=== PATIENT | female | born 1940 | race Asian ===

== ENCOUNTER 2021-04-08 03:31 | Emergency (ER) | payer MEDICARE, MEDICAID, SELFPAY ==
--- NOTE | ~2021-04-08 | CT_ITS ---
EXAMINATION CT CHEST, ABDOMEN AND PELVIS WITH CONTRAST CLINICAL INFORMATION: Chest pain. Hypertension. COMPARISON: None. TECHNIQUE: Multidetector volumetric CT imaging of the chest, abdomen and pelvis was obtained after the administration of 100 mL of intravenous Omnipaque 300 without immediate adverse reactions. Coronal and sagittal reformats were reviewed. This CT examination was performed using dose optimization techniques as appropriate, variously including the following: *Automated exposure control *Adjustment of mA and/or kV according to patient size (this includes techniques or standardized protocols for targeted exams where dose is matched to indication/reason for exam; i.e. extremities or head) *Use of iterative reconstruction technique DLP: 615 mGy-cm. FINDINGS: CHEST LUNGS/PLEURA: No pneumonitis or parenchymal consolidation. There is a 6 mm nodule at the right lung apex. There is no pleural effusion. No pleural mass or thickening. MEDIASTINUM/STEFANIA: Cardiomegaly. No pericardial effusion. Great vessels normal caliber. No aortic dissection. No pulmonary aneurysm. Aberrant right subclavian artery. No mediastinal or hilar adenopathy. CHEST WALL/AXILLA: Unremarkable. ABDOMEN/PELVIS HEPATOBILIARY: Liver normal in size, contour and morphology. No suspicious lesions. No intra or extrahepatic biliary dilation. Gallbladder unremarkable. PANCREAS: Unremarkable. SPLEEN: Unremarkable. ADRENAL GLANDS: Unremarkable. KIDNEYS, URETERS AND BLADDER: Kidneys normal in size, axis and morphology demonstrating symmetric enhancement. There is a 1.2 cm simple cyst in the right kidney which requires no further follow-up. No hydronephrosis or urinary calculi. Ureters normal in course and caliber. Bladder grossly unremarkable.. GASTROINTESTINAL TRACT: No bowel related abnormalities. PELVIC VISCERA: Unremarkable. LYMPH NODES: No lymphadenopathy. PERITONEUM/BODY WALL: Unremarkable. VASCULAR STRUCTURES: Unremarkable for age. OSSEOUS STRUCTURES No acute or suspicious osseous abnormalities. CT/CT abdomen pelvis w con IMPRESSION: No etiology for the patient's chest and abdominal pain. Incidental 6 mm nodule, right lung apex. Recommend follow-up CT chest in 6 months.
[2021-04-08 03:40] VITALS: BP 190/100; BP 195/85; PULSE 61; PULSE 72; RESP 16; TEMP 37.1; O2SAT 96; O2SAT 97; BMI 24.3
--- NOTE | 2021-04-08 03:45 | ED_ITS ---
HPI - Arrhythmia/Palpitations General Chief Complaint: Arrhythmia/Palpitations Stated Complaint: palpataions Time Seen by Provider: 04/08/21 03:45 Source: patient and cheese pancake roller (Dutch) Mode of arrival: EMS History of Present Illness HPI narrative: 81-year-old female with history of Graves disease and hypertension presents via EMS for complaints of palpitations and 6 days of sharp, nonradiating abdominal pain. Patient states that she called EMS because she was having palpitations and was feeling considerably fatigued. Otherwise, she denies any fevers, chills, nausea, vomiting, it urinary symptoms. Related Data Allergies Allergy/AdvReac Type Severity Reaction Status Date / Time No Known Allergies Allergy Unverified 04/08/21 03:46 Review of Systems Review of Systems: Pertinent positives and negatives as stated in HPI 10 point review of systems is otherwise negative. [facility] Past Medical History Source: nursing notes reviewed Physical Exam Vital Signs: Vital Signs: Last Vital Signs Temp 98.8 F 04/08/21 03:40 Pulse 64 04/08/21 06:05 Resp 16 04/08/21 06:00 BP 167/72 H 04/08/21 06:05 Pulse Ox 94 04/08/21 06:00 Body Mass Index 24.3 VITAL SIGNS: Reviewed. GENERAL: Well developed, well nourished, in no acute distress. HEAD: Normocephalic/atraumatic EYES: PERRLA, EOMI EARS: Ext canals without abnormality OROPHARYNX: no oral lesions noted, posterior pharynx clear LUNGS: Normal breath sounds. No adventitious sounds or accessory muscle use. SpO2<97> CARDIOVASCULAR: Regular rate and rhythm without noted murmurs, no JVD or lower extremity edema. ABDOMEN: Soft, tenderness to palpation primarily right-sided without rebound, non-distended with bowel sounds. MUSCULOSKELETAL: No tenderness, deformities, or effusions noted on gross inspection. EXTREMITIES: No cyanosis, clubbing or edema. SKIN: Inspection of the skin reveals no rashes, ulcerations, jaundice, pallor, or petechiae. NEUROLOGIC: Alert and oriented x 4. Strength and sensation to light touch were grossly intact x 4. Course Course Course Narrative: This is a 81-year-old female who has history and clinical presentation made more challenging by the absence of family members and the difficulty in obtaining [place] cheese pancake roller. Limited documentation for review indicates a history of Graves/hyperthyroidism, however on evaluation of initial vital signs patient is noted to be hypertensive, but EKG was without significant abnormalities (please review details in that section). There is no appreciation of a pulsatile mass within the abdomen. Review of all investigations without acute findings to better explain patient's presenting symptoms. Review of troponin and EKG without evidence of cardiac acute the etiology, no infectious or evidence of anemia. MDM - Arrhythmia/Palpitations Lab Data Result diagrams: 04/08/21 04:04 04/08/21 04:04 Labs: Lab Results 04/08/21 04/08/21 04/08/21 Range/Units 04:04 04:04 04:04 WBC 5.5 (4.8-10.8) X10*3/uL RBC 4.04 L (4.20-5.50) X10*6/uL Hgb 12.0 (12.0-16.0) g/dl Hct 36.9 L (37-47) % MCV 91.3 (80-98) fL MCH 29.7 (27.0-33.0) pg MCHC 32.5 (31.0-35.0) g/dl RDW 12.4 (11.0-16.0) % Plt Count 127 L (160-400) X10*3/uL MPV 13.0 H (9.4-12.3) fL Immature Gran % (Auto) 0.2 (0.0-0.4) % Neut % (Auto) 50.2 (45-73) % Lymph % (Auto) 39.7 (20-40) % [place] % (Auto) 8.3 (2-11) % Eos % (Auto) 1.1 (0-4) % Baso % (Auto) 0.5 (0-2) % Lymph # (Auto) 2.2 (1.2-4.9) X10*3/uL [place] # (Auto) 0.5 (0.1-1.2) X10*3/uL Eos # (Auto) 0.1 (0.0-0.4) X10*3/uL Baso # (Auto) 0.0 (0.0-0.2) X10*3/uL Abs Immat Gran (auto) 0.01 (0.00-0.03) X10*3/uL Absolute Neuts (auto) 2.8 (2.0-8.3) X10*3/uL Absolute Nucleated RBC 0.000 (0.0-0.012) X10*3/uL Nucleated RBC % (auto) 0.0 (0.0-0.2) /100WBC PT 11.8 (9.9-13.0) SEC INR 1.0 (0.9-1.1) Sodium 144 (135-145) mmol/L Potassium 3.4 (3.3-5.1) mmol/L Chloride 106 (96-108) mmol/L Carbon Dioxide 28 (22-29) mmol/L Anion Gap 13 (12-20) BUN 8 L (9-16) mg/dL Creatinine 0.78 (0.5-1.4) mg/dL Estim Creat Clear Calc 46.1 Estimated GFR > 60 Random Glucose 92 (60-115) mg/dL Calcium 9.4 (8.4-10.2) mg/dL Total Bilirubin 0.4 (0.0-1.0) mg/dL AST 16 (5-31) U/L ALT 7 (0-31) U/L Alkaline Phosphatase 60 (39-117) U/L Troponin I High Sens (<3.5-17.0) ng/L Total Protein 7.5 (6.5-8.0) g/dL Albumin 4.3 (3.5-5.0) g/dL Urine Color Urine Appearance Urine pH (5.0-8.0) Ur Specific [place] (1.005-1.025) Urine Protein (NEG-TRACE) MG/DL Urine Glucose (UA) (NEG) MG/DL Urine Ketones (NEG) MG/DL Urine Blood (NEG) Urine Nitrite (NEG) Ur Leukocyte Esterase (NEG) Urine RBC (0) /HPF Urine WBC (0-4) /HPF Ur Squamous Epith Cells /LPF Urine Bacteria /LPF 04/08/21 04/08/21 Range/Units 04:22 05:02 WBC (4.8-10.8) X10*3/uL RBC (4.20-5.50) X10*6/uL Hgb (12.0-16.0) g/dl Hct (37-47) % MCV (80-98) fL MCH (27.0-33.0) pg MCHC (31.0-35.0) g/dl RDW (11.0-16.0) % Plt Count (160-400) X10*3/uL MPV (9.4-12.3) fL Immature Gran % (Auto) (0.0-0.4) % Neut % (Auto) (45-73) % Lymph % (Auto) (20-40) % [place] % (Auto) (2-11) % Eos % (Auto) (0-4) % Baso % (Auto) (0-2) % Lymph # (Auto) (1.2-4.9) X10*3/uL [place] # (Auto) (0.1-1.2) X10*3/uL Eos # (Auto) (0.0-0.4) X10*3/uL Baso # (Auto) (0.0-0.2) X10*3/uL Abs Immat Gran (auto) (0.00-0.03) X10*3/uL Absolute Neuts (auto) (2.0-8.3) X10*3/uL Absolute Nucleated RBC (0.0-0.012) X10*3/uL Nucleated RBC % (auto) (0.0-0.2) /100WBC PT (9.9-13.0) SEC INR (0.9-1.1) Sodium (135-145) mmol/L Potassium (3.3-5.1) mmol/L Chloride (96-108) mmol/L Carbon Dioxide (22-29) mmol/L Anion Gap (12-20) BUN (9-16) mg/dL Creatinine (0.5-1.4) mg/dL Estim Creat Clear Calc Estimated GFR Random Glucose (60-115) mg/dL Calcium (8.4-10.2) mg/dL Total Bilirubin (0.0-1.0) mg/dL AST (5-31) U/L ALT (0-31) U/L Alkaline Phosphatase (39-117) U/L Troponin I High Sens < 3.5 (<3.5-17.0) ng/L Total Protein (6.5-8.0) g/dL Albumin (3.5-5.0) g/dL Urine Color YELLOW Urine Appearance CLEAR Urine pH 7.5 (5.0-8.0) Ur Specific [place] 1.015 (1.005-1.025) Urine Protein NEG (NEG-TRACE) MG/DL Urine Glucose (UA) NEG (NEG) MG/DL Urine Ketones NEG (NEG) MG/DL Urine Blood TRACE (NEG) Urine Nitrite NEG (NEG) Ur Leukocyte Esterase NEG (NEG) Urine RBC 1-4 (0) /HPF Urine WBC 1-4 (0-4) /HPF Ur Squamous Epith Cells 1+ /LPF Urine Bacteria 1+ /LPF ECG Data Attestation: I personally reviewed and interpreted this ECG as follows: Prior ECG tracings: not available for review Interpretation: Normal sinus rhythm, HR-61, no STEMI, PA/QRS/QTC are within normal limits. Discharge Plan Discharge Clinical Impression: Palpitations, Abdominal discomfort, Hypertension Patient Disposition: Home, Self-Care Instructions: Heart Palpitations (ED), Abdominal Pain (ED) Additional Instructions: 1. Resume all home medications as prescribed. 2. Follow-up with your primary care provider in the next 2-3 days for re- evaluation. Return to the ER for acute worsening of symptoms.
[2021-04-08 04:05] VITALS: BP 185/82; PULSE 65; RESP 13; O2SAT 96
[2021-04-08 04:13] LABS: MANUAL DIFF FLAG NO
[2021-04-08 04:28] LABS: Basophils Percent Auto 0.5 % (0-2); Eosinophils Absolute Auto 0.1 X10*3/uL (0.0-0.4); Eosinophils Percent Auto 1.1 % (0-4); Hematocrit 36.9 % (37-47); Imm Gran Abs Auto 0.01 X10*3/uL (0.00-0.03); Imm Gran Pct Auto 0.2 % (0.0-0.4); Lymphocytes Absolute Auto 2.2 X10*3/uL (1.2-4.9); Lymphocytes Percent Auto 39.7 % (20-40); Mean Corpuscular HGB Conc 32.5 g/dl (31.0-35.0); Mean Corpuscular Hemoglobin 29.7 pg (27.0-33.0); Mean Corpuscular Volume 91.3 fL (80-98); Monocytes Absolute Auto 0.5 X10*3/uL (0.1-1.2); Monocytes Percent Auto 8.3 % (2-11); Neutrophils Absolute Auto 2.8 X10*3/uL (2.0-8.3); Neutrophils Percent Auto 50.2 % (45-73); Platelet Count 127 X10*3/uL (160-400); Red Blood Count 4.04 X10*6/uL (4.20-5.50); Red Cell Distribution Width 12.4 % (11.0-16.0); White Blood Count 5.5 X10*3/uL (4.8-10.8)
[2021-04-08 04:31] LABS: Prothrombin Time 11.8 SEC (9.9-13.0)
[2021-04-08 04:38] LABS: Alanine Aminotransferase 7 U/L (0-31); Albumin Level 4.3 g/dL (3.5-5.0); Alkaline Phosphatase 60 U/L (39-117); Anion Gap 13 (12-20); Aspartate Amino Transferase 16 U/L (5-31); Bilirubin Total 0.4 mg/dL (0.0-1.0); Blood Urea Nitrogen 8 mg/dL (9-16); Calcium 9.4 mg/dL (8.4-10.2); Carbon Dioxide 28 mmol/L (22-29); Chloride 106 mmol/L (96-108); Creatinine Clr Calc Pharmacy 46.1; Estimated Glomerular Filt Rate > 60; Glucose Random 92 mg/dL (60-115); Potassium 3.4 mmol/L (3.3-5.1); Sodium 144 mmol/L (135-145); Total Protein 7.5 g/dL (6.5-8.0)
[2021-04-08 04:50] LABS: Troponin-I High Sensitivity < 3.5 ng/L (<3.5-17.0)
[2021-04-08 05:03] VITALS: BP 186/84; PULSE 63
[2021-04-08] MEDS: Labetalol HCL 100 MG/20 ML VIAL IVPUSH (05:03)
--- NOTE | 2021-04-08 05:06 | PC.NURSE ---
this RN attempted PIV access x 2, Dr Rodriguez attempted PIV with US guidance x 3. Ky RN able to obtain PIV with 22g in L hand. Pt being medicated at this time with 2.5mg lopressor as ordered in NOV for pt's HTN.
--- NOTE | 2021-04-08 05:07 | PC.NURSE ---
This RN attempted video/audio life science teacher with Bolivian, was informed no Bolivian interpreters available at this time. Ky RN called family from number in chart but was unable to communicate d/t no Afghan. This RN using phone to call interpreting services at this time, awaiting answer. Pt appears to grimace with palpation of abd, states hurt and points to chest and abd.
[2021-04-08 05:09] LABS: Appearance Urine CLEAR; Color Urine YELLOW; Glucose Urine UA NEG (NEG); Leukocyte Esterase Urine NEG (NEG); Nitrite Urine NEG (NEG); PH 7.5 (5.0-8.0); Specific Gravity - Urine 1.015 (1.005-1.025); UACC Culture Trigger NO; Urine Blood TRACE (NEG); Urine Ketones NEG (NEG); Urine Protein NEG (NEG-TRACE)
[2021-04-08 05:19] LABS: Bacteria Urine 1+ /LPF; Squamous Epithelial Cell Urine 1+ /LPF
[2021-04-08 05:30] VITALS: BP 181/82; PULSE 61; RESP 15; O2SAT 97
[2021-04-08] MEDS: iohexoL 350 MG/ML 100 ML INFUS..BTL 85 ML IV (05:54)
[2021-04-08 06:00] VITALS: BP 167/72; PULSE 64; RESP 16; O2SAT 94
[2021-04-08 06:05] VITALS: BP 167/72; PULSE 64
--- NOTE | 2021-04-08 06:05 | PC.NURSE ---
Dr Rodriguez made aware of BP 167/72; this RN to hold labetalol given decrease in BP
--- NOTE | 2021-04-08 07:34 | PC.NURSE ---
report taken from sean collier pt here for chest pain, work up negative and pt cleared for dc. pt eritrean speaking only, no contacts with serviceable phones in pt chart, pt does not know any phone numbers of family who can assist in getting home. this rn communicating using language application on phone. only able to translate bhutanese to eritrean. pt denies pain or distress at this time.
--- NOTE | 2021-04-08 07:40 | ECG_ITS ---
Test Reason : PALPITATIONS Blood Pressure : / mmHG Vent. Rate : 061 BPM Atrial Rate : 061 BPM P-R Int : 172 ms QRS Dur : 082 ms QT Int : 422 ms P-R-T Axes : 022 041 078 degrees QTc Int : 424 ms Normal sinus rhythm Nonspecific ST and T wave abnormality Borderline ECG No previous ECGs available Referred By: Nayely Rodriguez Electronically Signed By:AGNIESZKA STEVENSON
[2021-04-08] MEDS: Acetaminophen 325 MG TABLET 650 MG PO (11:40)
== END 2021-04-08 11:44 | disposition home or self-care (01) ==
PROVIDERS: Emergency Provider Student in an Organized Health Care Education/Training Program
DX: R00.2 Palpitations (principal); E05.00 Thyrotoxicosis with diffuse goiter without thyrotoxic crisis or storm; R10.9 Unspecified abdominal pain; I10 Essential (primary) hypertension; Z79.899 Other long term (current) drug therapy
CPT/HCPCS: 36415; 71260; 74177; 80053; 81001; 84484; 85025; 85610; 93005; 96374; 96375; 99284; Q9967

== ENCOUNTER 2021-10-05 13:36 | Emergency (ER) | payer MEDICARE, MEDICAID, SELFPAY ==
--- NOTE | ~2021-10-05 | XR_ITS ---
EXAMINATION: XR CHEST CLINICAL INFORMATION: Cough, Covid like symptoms. COMPARISON: CT chest 04/08/2021. TECHNIQUE: Frontal view of the chest was obtained. FINDINGS: The lungs are well-expanded and clear of acute process. There is some ill-defined patchy opacity left lung base retrocardiac area and right lung base likely developing infiltrates. Heart size is enlarged. Perivascular is normal. No gross bony abnormality seen. XR/XR chest 1V IMPRESSION: Likely developing infiltrates in both lower lobes.
[2021-10-05 13:47] VITALS: BP 143/61; BP 161/85; PULSE 60; PULSE 64; RESP 16; TEMP 37.1; O2SAT 97; BMI 25.3
--- NOTE | 2021-10-05 14:08 | ECG_ITS ---
Test Reason : chest pain Blood Pressure : / mmHG Vent. Rate : 058 BPM Atrial Rate : 058 BPM P-R Int : 174 ms QRS Dur : 084 ms QT Int : 400 ms P-R-T Axes : 028 020 068 degrees QTc Int : 392 ms Sinus bradycardia Otherwise normal ECG When compared with ECG of 08-APR-2021 03:42, No significant change was found Referred By: Lilia Tamayo Electronically Signed By:KODAK TIAN MD
--- NOTE | 2021-10-05 14:28 | ED.GENADULT ---
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 Patient states she has had flu-like symptoms for about a week, coughing, body aches, overall not feeling well. Patient states she is immunized for COVID. Patient complaining of occasional palpitations along with chest pain. Patient states that at this time she has no palpitations or chest pain but overall feeling weak and nauseous. Patient denies abdominal pain, no vomiting or diarrhea. Patient also reports that she has been urinating more than usual, no dysuria, no flank pain, no fever chills Related Data Previous Rx's Medication Instructions Recorded levofloxacin 500 mg tablet 500 mg PO DAILY #6 tab 10/05/21 Allergies Allergy/AdvReac Type Severity Reaction Status Date / Time No Known Allergies Allergy Unverified 04/08/21 03:46 Review of Systems Review of Systems: Constitutional : No Weight loss, No Fever, No Chills, No Night Sweats, complaining of fatigue and generalized malaise ENT/Mouth : No Hearing loss, No Ear Pain, No Nasal Congestion, No Sinus Pain, No Hoarseness, No sore throat, No Rhinorrhea, No Swallowing Difficulty Eyes: No Eye Pain, No Swelling, No Redness, No Foreign Body, No Discharge, No Vision Changes Cardiovascular : Complaining of palpitations along with Chest Pain intermittently, complaining of intermittent shortness of breath Respiratory : Complaining of dry cough, shortness of breath, no wheezing Gastrointestinal : Complaining of Nausea, No Vomiting, No Diarrhea, No Constipation, No abdominal Pain, No Hematochezia, No Melena Genitourinary : no irregular bleeding, No Dysuria, complaining of Urinary Frequency, No Hematuria, No Urinary Incontinence, No Urgency, No Flank Pain, No Urinary Flow Changes, No Hesitancy Musculoskeletal : No joint pain, complaining of generalized Myalgias, No Joint Swelling Skin : No Skin Lesions, No rash Neuro : No Weakness, No Numbness, No Paresthesias, No Loss of Consciousness, No Dizziness, No Headache Psych : No Anxiety/Panic, No Depression, No SI/HI/AH/VH, No Social Issues, Heme/Lymph: No Bruising, No Bleeding,No Lymphadenopathy Endocrine : No Polyuria, No Polydipsia, No Temperature Intolerance [facility] Past Medical History Medical History (Updated 10/05/21 @ 16:29 by Lilia Tamayo MD) Graves disease Social History Social History Advance Directives: No Advance Directives Information Provided: No Physical Exam Vital Signs: Vital Signs: Last Vital Signs Temp 98.5 F 10/05/21 15:20 Pulse 61 10/05/21 15:20 Resp 15 10/05/21 15:20 BP 140/53 H 10/05/21 15:20 Pulse Ox 98 10/05/21 15:20 BMI result Body Mass Index 25.3 Const: Other: Appearance: Alert. Oriented X3. No acute distress. Eyes: Pupils equal, round and reactive to light. ENT: Pharynx normal. Neck: Normal inspection. Neck supple. No lymph nodes noted. No crepitus CVS: Normal heart rate and rhythm. Pulses normal. Normal S1 and S2 Respiratory: No respiratory distress. Breath sounds normal. No Wheezing. No rales Abdomen: Soft, nontender Skin: Skin warm and dry. Seems a bit pale. Normal skin turgor. Extremities: No lower extremity edema. No Lacerations. No Rash Neuro: Oriented X 3. No motor deficit. No sensory deficit. Moving all extermities. No slurred speech. Course Course Course Narrative: I discussed the labs with the patient's daughter with the patient's permission. Patient tested positive for COVID-19. Patient may have a slight UTI. Patient will be sent home with antibiotics cover both possible developing infiltrates in both lower lobes and for UTI. Patient has an appointment pending with her primary care physician in [place] Patient's oxygen saturation remains above 98% on room air Patient's information was forwarded to the [facility] [place]. Discussed with patient's daughter Alonzo Penny. Medical Decision Making Lab Data Result diagrams: 10/05/21 14:48 10/05/21 14:48 Labs: Lab Results 10/05/21 10/05/21 10/05/21 Range/Units 14:37 14:39 14:48 WBC 5.3 (4.8-10.8) X10*3/uL RBC 4.46 (4.20-5.50) X10*6/uL Hgb 13.1 (12.0-16.0) g/dl Hct 41.2 (37.0-47.0) % MCV 92.4 (80.0-98.0) fL MCH 29.4 (27.0-33.0) pg MCHC 31.8 (31.0-35.0) g/dl RDW 12.4 (11.0-16.0) % Plt Count 190 (160-400) X10*3/uL MPV 11.2 (9.4-12.3) fL Immature Gran % (Auto) 0.2 (0.0-0.4) % Neut % (Auto) 61.5 (45-73) % Lymph % (Auto) 31.6 (20-40) % [place] % (Auto) 5.7 (2-11) % Eos % (Auto) 0.6 (0-4) % Baso % (Auto) 0.4 (0-2) % Lymph # (Auto) 1.7 (1.2-4.9) X10*3/uL [place] # (Auto) 0.3 (0.1-1.2) X10*3/uL Eos # (Auto) 0.0 (0.0-0.4) X10*3/uL Baso # (Auto) 0.0 (0.0-0.2) X10*3/uL Abs Immat Gran (auto) 0.01 (0.00-0.03) X10*3/uL Absolute Neuts (auto) 3.2 (2.0-8.3) x10*3/uL Absolute Nucleated RBC 0.000 (0.0-0.012) X10*3/uL Nucleated RBC % (auto) 0.0 (0.0-0.2) /100WBC PT (9.9-13.0) SEC INR (0.9-1.1) Sodium (135-145) mmol/L Potassium (3.3-5.1) mmol/L Chloride (96-108) mmol/L Carbon Dioxide (22-29) mmol/L Anion Gap (12-20) BUN (9-16) mg/dL Creatinine (0.5-1.4) mg/dL Estim Creat Clear Calc Estimated GFR Random Glucose (60-115) mg/dL Lactic Acid (0.5-2.0) mmol/L Calcium (8.4-10.2) mg/dL Total Bilirubin (0.0-1.0) mg/dL Direct Bilirubin (0.0-0.5) mg/dL AST (5-31) U/L ALT (0-31) U/L Alkaline Phosphatase (39-117) U/L Troponin I High Sens (<3.5-17.0) ng/L B-Natriuretic Peptide (<100) pg/mL Total Protein (6.5-8.0) g/dL Albumin (3.5-5.0) g/dL Lipase (8-78) U/L TSH (0.32-4.0) uIU/mL Urine Color YELLOW Urine Appearance CLEAR Urine pH 8.0 (5.0-8.0) Ur Specific [place] 1.010 (1.005-1.025) Urine Protein NEG (NEG-TRACE) MG/DL Urine Glucose (UA) NEG (NEG) MG/DL Urine Ketones NEG (NEG) MG/DL Urine Blood TRACE (NEG) Urine Nitrite NEG (NEG) Ur Leukocyte Esterase TRACE H (NEG) Urine RBC 0-2 (0) /HPF Urine WBC 1-4 (0-4) /HPF Ur Squamous Epith Cells TRACE /LPF Urine Bacteria 3+ /LPF COVID-19 ([facility]) Positive A (Negative) COVID-19 Clin Com See Note 10/05/21 10/05/21 10/05/21 Range/Units 14:48 14:48 14:48 WBC (4.8-10.8) X10*3/uL RBC (4.20-5.50) X10*6/uL Hgb (12.0-16.0) g/dl Hct (37.0-47.0) % MCV (80.0-98.0) fL MCH (27.0-33.0) pg MCHC (31.0-35.0) g/dl RDW (11.0-16.0) % Plt Count (160-400) X10*3/uL MPV (9.4-12.3) fL Immature Gran % (Auto) (0.0-0.4) % Neut % (Auto) (45-73) % Lymph % (Auto) (20-40) % [place] % (Auto) (2-11) % Eos % (Auto) (0-4) % Baso % (Auto) (0-2) % Lymph # (Auto) (1.2-4.9) X10*3/uL [place] # (Auto) (0.1-1.2) X10*3/uL Eos # (Auto) (0.0-0.4) X10*3/uL Baso # (Auto) (0.0-0.2) X10*3/uL Abs Immat Gran (auto) (0.00-0.03) X10*3/uL Absolute Neuts (auto) (2.0-8.3) x10*3/uL Absolute Nucleated RBC (0.0-0.012) X10*3/uL Nucleated RBC % (auto) (0.0-0.2) /100WBC PT 11.2 (9.9-13.0) SEC INR 1.0 (0.9-1.1) Sodium 143 (135-145) mmol/L Potassium 4.4 D (3.3-5.1) mmol/L Chloride 104 (96-108) mmol/L Carbon Dioxide 32 H (22-29) mmol/L Anion Gap 11 L (12-20) BUN 14 (9-16) mg/dL Creatinine 0.82 (0.5-1.4) mg/dL Estim Creat Clear Calc 44.6 Estimated GFR > 60 Random Glucose 91 (60-115) mg/dL Lactic Acid 1.1 (0.5-2.0) mmol/L Calcium 10.1 D (8.4-10.2) mg/dL Total Bilirubin 0.5 (0.0-1.0) mg/dL Direct Bilirubin 0.2 (0.0-0.5) mg/dL AST 28 D (5-31) U/L ALT 29 (0-31) U/L Alkaline Phosphatase 68 (39-117) U/L Troponin I High Sens (<3.5-17.0) ng/L B-Natriuretic Peptide (<100) pg/mL Total Protein 8.8 H (6.5-8.0) g/dL Albumin 4.7 (3.5-5.0) g/dL Lipase 40 (8-78) U/L TSH (0.32-4.0) uIU/mL Urine Color Urine Appearance Urine pH (5.0-8.0) Ur Specific [place] (1.005-1.025) Urine Protein (NEG-TRACE) MG/DL Urine Glucose (UA) (NEG) MG/DL Urine Ketones (NEG) MG/DL Urine Blood (NEG) Urine Nitrite (NEG) Ur Leukocyte Esterase (NEG) Urine RBC (0) /HPF Urine WBC (0-4) /HPF Ur Squamous Epith Cells /LPF Urine Bacteria /LPF COVID-19 ([facility]) (Negative) COVID-19 Clin Com 10/05/21 10/05/21 Range/Units 14:49 15:31 WBC (4.8-10.8) X10*3/uL RBC (4.20-5.50) X10*6/uL Hgb (12.0-16.0) g/dl Hct (37.0-47.0) % MCV (80.0-98.0) fL MCH (27.0-33.0) pg MCHC (31.0-35.0) g/dl RDW (11.0-16.0) % Plt Count (160-400) X10*3/uL MPV (9.4-12.3) fL Immature Gran % (Auto) (0.0-0.4) % Neut % (Auto) (45-73) % Lymph % (Auto) (20-40) % [place] % (Auto) (2-11) % Eos % (Auto) (0-4) % Baso % (Auto) (0-2) % Lymph # (Auto) (1.2-4.9) X10*3/uL [place] # (Auto) (0.1-1.2) X10*3/uL Eos # (Auto) (0.0-0.4) X10*3/uL Baso # (Auto) (0.0-0.2) X10*3/uL Abs Immat Gran (auto) (0.00-0.03) X10*3/uL Absolute Neuts (auto) (2.0-8.3) x10*3/uL Absolute Nucleated RBC (0.0-0.012) X10*3/uL Nucleated RBC % (auto) (0.0-0.2) /100WBC PT (9.9-13.0) SEC INR (0.9-1.1) Sodium (135-145) mmol/L Potassium (3.3-5.1) mmol/L Chloride (96-108) mmol/L Carbon Dioxide (22-29) mmol/L Anion Gap (12-20) BUN (9-16) mg/dL Creatinine (0.5-1.4) mg/dL Estim Creat Clear Calc Estimated GFR Random Glucose (60-115) mg/dL Lactic Acid (0.5-2.0) mmol/L Calcium (8.4-10.2) mg/dL Total Bilirubin (0.0-1.0) mg/dL Direct Bilirubin (0.0-0.5) mg/dL AST (5-31) U/L ALT (0-31) U/L Alkaline Phosphatase (39-117) U/L Troponin I High Sens < 3.5 (<3.5-17.0) ng/L B-Natriuretic Peptide 11 (<100) pg/mL Total Protein (6.5-8.0) g/dL Albumin (3.5-5.0) g/dL Lipase (8-78) U/L TSH 2.19 (0.32-4.0) uIU/mL Urine Color Urine Appearance Urine pH (5.0-8.0) Ur Specific [place] (1.005-1.025) Urine Protein (NEG-TRACE) MG/DL Urine Glucose (UA) (NEG) MG/DL Urine Ketones (NEG) MG/DL Urine Blood (NEG) Urine Nitrite (NEG) Ur Leukocyte Esterase (NEG) Urine RBC (0) /HPF Urine WBC (0-4) /HPF Ur Squamous Epith Cells /LPF Urine Bacteria /LPF COVID-19 ([facility]) (Negative) COVID-19 Clin Com Imaging Data Chest x-ray: Radiologist's impression: The lungs are well-expanded and clear of acute process. There is some ill-defined patchy opacity left lung base retrocardiac area and right lung base likely developing infiltrates. Heart size is enlarged. Perivascular is normal. No gross bony abnormality seen. XR/XR chest 1V IMPRESSION: Likely developing infiltrates in both lower lobes. Discharge Plan Discharge Clinical Impression: COVID-19, Acute UTI, Palpitations Patient Disposition: Home, Self-Care Instructions: COVID-19 (Coronavirus Disease 2019) (ED) Additional Instructions: Please follow-up with your primary care physician tomorrow. If you have any worsening or new symptoms, please return to the emergency room or call 911 Prescriptions: New levofloxacin 500 mg tablet 500 mg PO DAILY Qty: 6 RF: 0
[2021-10-05] MEDS: 0.9 % Sodium Chloride 1,000 ML 999 ML IVCONT (14:50)
[2021-10-05 14:56] LABS: MANUAL DIFF FLAG NO
[2021-10-05 14:59] LABS: Basophils Percent Auto 0.4 % (0-2); Eosinophils Percent Auto 0.6 % (0-4); Hematocrit 41.2 % (37.0-47.0); Hemoglobin 13.1 g/dl (12.0-16.0); Imm Gran Abs Auto 0.01 X10*3/uL (0.00-0.03); Imm Gran Pct Auto 0.2 % (0.0-0.4); Lymphocytes Absolute Auto 1.7 X10*3/uL (1.2-4.9); Lymphocytes Percent Auto 31.6 % (20-40); Mean Corpuscular HGB Conc 31.8 g/dl (31.0-35.0); Mean Corpuscular Hemoglobin 29.4 pg (27.0-33.0); Mean Corpuscular Volume 92.4 fL (80.0-98.0); Mean Platelet Volume 11.2 fL (9.4-12.3); Monocytes Absolute Auto 0.3 X10*3/uL (0.1-1.2); Monocytes Percent Auto 5.7 % (2-11); Neutrophils Absolute Auto 3.2 x10*3/uL (2.0-8.3); Neutrophils Percent Auto 61.5 % (45-73); Platelet Count 190 X10*3/uL (160-400); Red Blood Count 4.46 X10*6/uL (4.20-5.50); Red Cell Distribution Width 12.4 % (11.0-16.0); White Blood Count 5.3 X10*3/uL (4.8-10.8)
[2021-10-05 15:05] LABS: Prothrombin Time 11.2 SEC (9.9-13.0)
[2021-10-05 15:11] LABS: Lactic Acid 1.1 mmol/L (0.5-2.0)
[2021-10-05 15:11] LABS: Appearance Urine CLEAR; Color Urine YELLOW; Glucose Urine UA NEG (NEG); Leukocyte Esterase Urine TRACE (NEG); Nitrite Urine NEG (NEG); UACC Culture Trigger YES; Urine Blood TRACE (NEG); Urine Ketones NEG (NEG); Urine Protein NEG (NEG-TRACE)
[2021-10-05 15:17] LABS: Alanine Aminotransferase 29 U/L (0-31); Albumin Level 4.7 g/dL (3.5-5.0); Alkaline Phosphatase 68 U/L (39-117); Anion Gap 11 (12-20); Aspartate Amino Transferase 28 U/L (5-31); Bilirubin Direct 0.2 mg/dL (0.0-0.5); Bilirubin Total 0.5 mg/dL (0.0-1.0); Blood Urea Nitrogen 14 mg/dL (9-16); Calcium 10.1 mg/dL (8.4-10.2); Carbon Dioxide 32 mmol/L (22-29); Chloride 104 mmol/L (96-108); Creatinine Clr Calc Pharmacy 44.6; Estimated Glomerular Filt Rate > 60; Glucose Random 91 mg/dL (60-115); Lipase 40 U/L (8-78); Potassium 4.4 mmol/L (3.3-5.1); Sodium 143 mmol/L (135-145); Total Protein 8.8 g/dL (6.5-8.0)
[2021-10-05 15:20] VITALS: BP 140/53; PULSE 61; RESP 15; TEMP 36.9; O2SAT 98
[2021-10-05 15:21] LABS: B Type Natriuretic Peptide 11 pg/mL (<100); Troponin-I High Sensitivity < 3.5 ng/L (<3.5-17.0)
[2021-10-05 15:22] LABS: COVID-19 Test Positive (Negative); IDNOW Serial# 9DD0AD1C
[2021-10-05 15:34] LABS: Bacteria Urine 3+ /LPF; RBC Urine 0-2 /HPF (0); Squamous Epithelial Cell Urine TRACE /LPF
[2021-10-05 16:17] LABS: TSH reflex Free T4 2.19 uIU/mL (0.32-4.0)
[2021-10-05] MEDS: levoFLOXacin 500 MG TABLET PO (16:36)
[2021-10-05 16:41] VITALS: BP 186/80; PULSE 64; RESP 17; TEMP 36.8; O2SAT 97
== END 2021-10-05 17:25 | disposition home or self-care (01) ==
PROVIDERS: Emergency Provider Emergency Medicine
DX: U07.1 COVID-19 (principal); N39.0 Urinary tract infection, site not specified; R06.02 Shortness of breath; I49.9 Cardiac arrhythmia, unspecified; R00.2 Palpitations; Z79.899 Other long term (current) drug therapy
CPT/HCPCS: 36415; 71045; 80048; 80076; 81001; 81003; 83605; 83690; 83880; 84443; 84484; 85025; 85610; 87040; 87086; 87088; 87186; 87635; 93005; 96360; 99284

== ENCOUNTER 2022-01-19 12:16 | Emergency (ER) | payer MEDICARE, MEDICAID, SELFPAY ==
--- NOTE | 2022-01-19 | ECG_ITS ---
Test Reason : DIZINESS Blood Pressure : / mmHG Vent. Rate : 052 BPM Atrial Rate : 052 BPM P-R Int : 210 ms QRS Dur : 086 ms QT Int : 444 ms P-R-T Axes : 034 010 053 degrees QTc Int : 412 ms Sinus bradycardia with 1st degree A-V block Otherwise normal ECG When compared with ECG of 05-OCT-2021 14:08, MT interval has increased Referred By: Generic ED Physician Electronically Signed By:KODAK TIAN MD
--- NOTE | ~2022-01-19 | CT_ITS ---
EXAMINATION: CT HEAD WITHOUT CONTRAST CLINICAL INFORMATION: Dizziness, near syncope. COMPARISON: None TECHNIQUE: Contiguous axial imaging was performed from the skull base to vertex without intravenous administration of contrast. Coronal and sagittal reformatted images were obtained. This CT examination was performed using dose optimization techniques as appropriate, variously including the following: *Automated exposure control *Adjustment of mA and/or kV according to patient size (this includes techniques or standardized protocols for targeted exams where dose is matched to indication/reason for exam; i.e. extremities or head) *Use of iterative reconstruction technique DLP: 626 mGy-cm FINDINGS: There is no evidence of acute intracranial hemorrhage or territorial infarction. No abnormal mass effect or midline shift is seen. Hernandez to white matter differentiation is well preserved. No extra-axial fluid collections are identified. The ventricles are normal in size. There is no abnormal attenuation within the brain parenchyma. The osseous structures and soft tissues are normal. Mild mucosal thickening is seen in the ethmoid sinuses bilaterally. The mastoid air cells are clear. CT/CT head/brain wo con IMPRESSION: No acute intracranial pathology.
--- NOTE | ~2022-01-19 | XR_ITS ---
EXAMINATION: XR CHEST CLINICAL INFORMATION: Weakness and dizziness COMPARISON: Previous chest x-ray September [address] March 2021 TECHNIQUE: 2 views of the chest were obtained. FINDINGS: The cardiac silhouette is enlarged but stable. Hilar and mediastinal contours are unremarkable. The lungs are clear. There is no pleural effusion or pneumothorax. No acute bone abnormality. XR/XR chest 2V IMPRESSION: Stable enlargement of the cardiac silhouette. No evidence for acute disease in the chest.
[2022-01-19 12:24] VITALS: PULSE 56; O2SAT 92
[2022-01-19 12:38] VITALS: BP 136/60; PULSE 52; RESP 18; TEMP 36.6; O2SAT 99; BMI 22.4
[2022-01-19 13:31] LABS: Anion Gap 10 (12-20); Blood Urea Nitrogen 22 mg/dL (9-16); Carbon Dioxide 26 mmol/L (22-29); Chloride 109 mmol/L (96-108); Estimated Glomerular Filt Rate > 60; Glucose Random 144 mg/dL (60-115); Sodium 141 mmol/L (135-145)
[2022-01-19 13:36] LABS: Troponin-I High Sensitivity < 3.5 ng/L (<3.5-17.0)
[2022-01-19] MEDS: 0.9 % Sodium Chloride 1,000 ML 999 ML IV (13:36)
[2022-01-19] MEDS: ondansetron HCL 4 MG/2 ML VIAL IVPUSH (13:36)
[2022-01-19 13:50] LABS: Alanine Aminotransferase 29 U/L (0-31); Albumin Level 3.9 g/dL (3.5-5.0); Alkaline Phosphatase 55 U/L (39-117); Aspartate Amino Transferase 31 U/L (5-31); Bilirubin Direct < 0.2 mg/dL (0.0-0.5); Bilirubin Total 0.2 mg/dL (0.0-1.0); Lipase 34 U/L (8-78); Magnesium 1.9 mg/dL (1.6-2.6)
[2022-01-19 14:14] LABS: MANUAL DIFF FLAG NO
[2022-01-19 14:19] LABS: Basophils Percent Auto 0.4 % (0-2); Eosinophils Percent Auto 0.4 % (0-4); Hematocrit 37.5 % (37.0-47.0); Hemoglobin 11.8 g/dl (12.0-16.0); Imm Gran Abs Auto 0.02 X10*3/uL (0.00-0.03); Imm Gran Pct Auto 0.2 % (0.0-0.4); Lymphocytes Absolute Auto 1.1 X10*3/uL (1.2-4.9); Lymphocytes Percent Auto 13.5 % (20-40); Mean Corpuscular HGB Conc 31.5 g/dl (31.0-35.0); Mean Corpuscular Hemoglobin 29.7 pg (27.0-33.0); Mean Corpuscular Volume 94.5 fL (80.0-98.0); Mean Platelet Volume 12.3 fL (9.4-12.3); Monocytes Absolute Auto 0.3 X10*3/uL (0.1-1.2); Monocytes Percent Auto 4.1 % (2-11); Neutrophils Absolute Auto 6.8 x10*3/uL (2.0-8.3); Neutrophils Percent Auto 81.4 % (45-73); Platelet Count 136 X10*3/uL (160-400); Red Blood Count 3.97 X10*6/uL (4.20-5.50); Red Cell Distribution Width 13.2 % (11.0-16.0); White Blood Count 8.4 X10*3/uL (4.8-10.8)
[2022-01-19 14:29] LABS: COVID-19 Test Negative (Negative); IDNOW Serial# 55D5AD1C
[2022-01-19 14:37] LABS: Influenza A Negative (Negative); Influenza B2 Negative (Negative)
--- NOTE | 2022-01-19 15:07 | ED_ITS ---
HPI - Dizziness General Chief Complaint: Dizziness <Deja DupreeCHARLENE - Last Filed: 01/19/22 18:36> Stated Complaint: NAUSEA,VOMITING,DIZZY <Deja DupreeCHARLENE - Last Filed: 01/19/22 18:36> Time Seen by Provider: 01/19/22 13:22 <Deja DupreeCHARLENE - Last Filed: 01/19/22 18:36> Source: patient <Deja DupreeCHARLENE - Last Filed: 01/19/22 18:36> Mode of arrival: EMS <Deja DupreeCHARLENE - Last Filed: 01/19/22 18:36> Limitations: language barrier ( Filipino speaking, medical genetics director utilized) <Deja StovallCHARLENE monroe - Last Filed: 01/19/22 18:36> History of Present Illness HPI Narrative: patient presents to the emergency department via EMS coming from home. According to family on scene patient had been reporting nausea and vomiting. She attempted to go to the bathroom and began feeling dizzy like she was going to black out. Family had lowered patient to the floor and EMS arrival that is where patient was. With use of the seismic interpreter patient states she has been feeling ill for the past few days. In addition she is reporting anterior chest pain, nonradiating, nonreproducible. states chest pain is only present when she is moving around, walking in her home. Chest pain started prior to arrival. Denies fevers, chills, neck pain, neck stiffness, shortness of breath, difficulty breathing, abdominal pain, diarrhea, constipation, dysuria, urinary frequency. <Deja StovallCHARLENE monroe - Last Filed: 01/19/22 18:36> Related Data Home Medications: Previous Rx's Medication Instructions Recorded levofloxacin 500 mg tablet 500 mg PO DAILY #6 tab 10/05/21 ondansetron 4 mg disintegrating 4 mg PO Q6-8H PRN #7 tab 01/19/22 tablet <Deja DupreeCHARLENE - Last Filed: 01/19/22 18:36> Allergies/Adverse Reactions: Allergies Allergy/AdvReac Type Severity Reaction Status Date / Time No Known Allergies Allergy Unverified 04/08/21 03:46 <Dejarafia Dupree CNP - Last Filed: 01/19/22 18:36> Review of Systems Review of Systems: Constitutional : No Weight loss, No Fever, No Chills ENT/Mouth :? No sore throat, No Rhinorrhea Eyes: No Eye Pain, No Swelling Cardiovascular : pos Chest Pain, no SOB, no Dyspnea on Exertion, No Orthopnea, No Edema, No Palpitations Respiratory : No Cough, No Sputum Gastrointestinal : positive Nausea, positive Vomiting, No Diarrhea, No abdominal Pain, No Hematochezia, No Melena Genitourinary : No Dysuria, No Urinary Frequency Musculoskeletal : No joint pain, No Myalgias, No Joint Swelling Skin : No Skin Lesions, No rash Neuro : positive Weakness, No Numbness, positive Dizziness, No Headache Psych : No Anxiety/Panic, No Depression <Deja Dupree CNP - Last Filed: 01/19/22 18:36> Yes all other systems are reviewed and are negative <Deja Dupree CNP - Last Filed: 01/19/22 18:36> [facility] Past Medical History Attestation statement: The following information was validated with the patient. <Deja Dupree CNP - Last Filed: 01/19/22 18:36> Source: old records reviewed <Deja Dupree CNP - Last Filed: 01/19/22 18:36> Medical History: Medical History Graves disease <Deja Dupree CNP - Last Filed: 01/19/22 18:36> Social History Social History: Social History Advance Directives: No <Deja Dupree CNP - Last Filed: 01/19/22 18:36> Physical Exam Vital Signs: Vital Signs: Last Vital Signs Temp 98.1 F 01/19/22 18:27 Pulse 66 01/19/22 18:27 Resp 15 01/19/22 18:27 BP 155/72 H 01/19/22 18:27 Pulse Ox 95 01/19/22 18:27 BMI result Body Mass Index 22.4 Vital signs have been reviewed as normal and appeared to be correct. Blood pressure normal.? Heart rate normal.? Respiration rate normal. Temperature normal.? Oxygen saturation normal. <Deja Dupree CNP - Last Filed: 01/19/22 18:36> Vital Signs: Last Vital Signs Temp 98.1 F 01/19/22 18:27 Pulse 66 01/19/22 18:27 Resp 15 01/19/22 18:27 BP 155/72 H 01/19/22 18:27 Pulse Ox 95 01/19/22 18:27 BMI result Body Mass Index 22.4 <Kaushik Rolle MD - Last Filed: 01/19/22 20:25> Appearance: Alert.?Oriented to person, place and time. No acute distress.?Normal affect. Head: normocephalic, atraumatic Eyes: Pupils equal, round and reactive to light.?EOMi. No Nystagmus ENT: bilateral ear canals clear, TM's are normal. Pharynx normal.?? Neck: Normal inspection.? Neck supple.?? CVS: Heart sounds normal. Normal heart rate and rhythm.? Pulses normal.?? Respiratory: No respiratory distress.? Lung sounds clear to auscultation bilaterally. no palpable chest wall tenderness. No crepitus Abdomen: Soft and non-tender. Normoactive bowel sounds. Skin: Skin warm and dry.? Normal skin color.? Extremities: No lower extremity edema.? Neuro: Moves all extremities spontaneously. Sensation intact bilaterally. CN II- XII intact. No focal neuro deficits. <Deja Dupree CNP - Last Filed: 01/19/22 18:36> Course Course Course Narrative: patient is a 81-year-old female with history of Graves disease, hypertension, presenting from home for evaluation of nausea, vomiting, chest pain, dizziness and sounds like near syncopal episdoes. Will obtain CBC to evaluate for leukocytosis/ anemia, CMP and lipase to evaluate for abnormal electrolytes /abnormal renal function/ abnormal hepatic/biliary function, EKG and troponin to evaluate for ischemia/ACS. Chest x-ray to evaluate for consolidation/ infiltrate/ mass/ pulmonary congestion. Urinalysis to evaluate for infection <Deja Dupree CNP - Last Filed: 01/19/22 18:36> Reevaluation(s) Reevaluation #1: BUN is elevated at 22, creatinine 0.82, likely secondary to dehydration in the setting vomiting. EKG reveals sinus bradycardia with first-degree AV block, when compared to prior EKGs first-degree AV block is new, no acute concerns for ischemia, troponin <3.5, HEART score 4, will obtain repeat delta troponin. head CT without acute intracranial pathology. Chest x-ray without acute cardiopulmonary disease. COVID-19 and influenza testing were both negative. Urinalysis without sign of infection. <Deja Dupree CNP - Last Filed: 01/19/22 18:36> Time: 16:58 <Deja Dupree CNP - Last Filed: 01/19/22 18:36> Reevaluation #2: spoke with patient was use a Filipino seismic interpreter. She reports resolut ion of her nausea and vomiting. No longer feeling dizzy. Ambulatory in the room with steady gait. She denies chest pain at rest. However with any movement, such as while walking in the room, she feels anterior chest pain. She is unable to provide descriptors. Pain is non-reproducible to palpation or deep inspiration. Denies any history of similar pain like this in the past. She denies any shortness of breath, has had no hypoxia tachycardia or tachypnea, to suggest pulmonary embolism. Discussed this case with ED attending Dr. Rolle, patient signed out pending repeat troponin and EKG. <Deja Dupree CNP - Last Filed: 01/19/22 18:36> Time: 17:40 <Deja Dupree CNP - Last Filed: 01/19/22 18:36> MDM - Dizziness MDM Narrative Medical decision making narrative: 20:15Patient seen with family complaining of diarrhea 3 loose bowels followed by dizziness and weakness and chest pain which increases on palpation 2 sets of cardiac enzymes-2 EKGs also negative chest pain is reproducible at this time patient is has no nausea no diarrhea no vomiting walking is steady gait will discharge patient home advised to follow with cardiology/PCP <Kaushik Rolle MD - Last Filed: 01/19/22 20:25> Medical Records Attestation: I reviewed the patient's medical records. <Deja Dupree CNP - Last Filed: 01/19/22 18:36> Lab Data Attestation: I reviewed the patient's lab results. <Deja Judgemoe Dupree CNP - Last Filed: 01/19/22 18:36> Result diagrams: : 01/19/22 14:08 01/19/22 13:03 <Deja Hoang CHARLENE Dupree - Last Filed: 01/19/22 18:36> Labs: Lab Results 01/19/22 01/19/22 01/19/22 Range/Units 13:03 13:03 14:04 WBC (4.8-10.8) X10*3/uL RBC (4.20-5.50) X10*6/uL Hgb (12.0-16.0) g/dl Hct (37.0-47.0) % MCV (80.0-98.0) fL MCH (27.0-33.0) pg MCHC (31.0-35.0) g/dl RDW (11.0-16.0) % Plt Count (160-400) X10*3/uL MPV (9.4-12.3) fL Immature Gran % (Auto) (0.0-0.4) % Neut % (Auto) (45-73) % Lymph % (Auto) (20-40) % [place] % (Auto) (2-11) % Eos % (Auto) (0-4) % Baso % (Auto) (0-2) % Lymph # (Auto) (1.2-4.9) X10*3/uL [place] # (Auto) (0.1-1.2) X10*3/uL Eos # (Auto) (0.0-0.4) X10*3/uL Baso # (Auto) (0.0-0.2) X10*3/uL Abs Immat Gran (auto) (0.00-0.03) X10*3/uL Absolute Neuts (auto) (2.0-8.3) x10*3/uL Absolute Nucleated RBC (0.0-0.012) X10*3/uL Nucleated RBC % (auto) (0.0-0.2) /100WBC Sodium 141 (135-145) mmol/L Potassium 4.0 (3.3-5.1) mmol/L Chloride 109 H (96-108) mmol/L Carbon Dioxide 26 (22-29) mmol/L Anion Gap 10 L (12-20) BUN 22 H D (9-16) mg/dL Creatinine 0.82 (0.5-1.4) mg/dL Estim Creat Clear Calc 40.0 Estimated GFR > 60 Random Glucose 144 H (60-115) mg/dL Calcium 9.0 D (8.4-10.2) mg/dL Magnesium 1.9 (1.6-2.6) mg/dL Total Bilirubin 0.2 (0.0-1.0) mg/dL Direct Bilirubin < 0.2 (0.0-0.5) mg/dL AST 31 (5-31) U/L ALT 29 (0-31) U/L Alkaline Phosphatase 55 (39-117) U/L Troponin I High Sens < 3.5 (<3.5-17.0) ng/L Total Protein 7.0 D (6.5-8.0) g/dL Albumin 3.9 (3.5-5.0) g/dL Lipase 34 (8-78) U/L Urine Color Urine Appearance Urine pH (5.0-8.0) Ur Specific [place] (1.005-1.025) Urine Protein (NEG-TRACE) MG/DL Urine Glucose (UA) (NEG) MG/DL Urine Ketones (NEG) MG/DL Urine Blood (NEG) Urine Nitrite (NEG) Ur Leukocyte Esterase (NEG) Urine RBC (0) /HPF Urine WBC (0-4) /HPF Ur Squamous Epith Cells /LPF Urine Bacteria /LPF COVID-19 ([facility]) (Negative) COVID-19 Clin Com Influenza Type A (AUDIE) Negative (Negative) Influenza Type B (AUDIE) Negative (Negative) Influenza A & B Note See Note 01/19/22 01/19/22 01/19/22 Range/Units 14:04 14:08 16:44 WBC 8.4 (4.8-10.8) X10*3/uL RBC 3.97 L (4.20-5.50) X10*6/uL Hgb 11.8 L (12.0-16.0) g/dl Hct 37.5 (37.0-47.0) % MCV 94.5 (80.0-98.0) fL MCH 29.7 (27.0-33.0) pg MCHC 31.5 (31.0-35.0) g/dl RDW 13.2 (11.0-16.0) % Plt Count 136 L D (160-400) X10*3/uL MPV 12.3 (9.4-12.3) fL Immature Gran % (Auto) 0.2 (0.0-0.4) % Neut % (Auto) 81.4 H (45-73) % Lymph % (Auto) 13.5 L (20-40) % [place] % (Auto) 4.1 (2-11) % Eos % (Auto) 0.4 (0-4) % Baso % (Auto) 0.4 (0-2) % Lymph # (Auto) 1.1 L (1.2-4.9) X10*3/uL [place] # (Auto) 0.3 (0.1-1.2) X10*3/uL Eos # (Auto) 0.0 (0.0-0.4) X10*3/uL Baso # (Auto) 0.0 (0.0-0.2) X10*3/uL Abs Immat Gran (auto) 0.02 (0.00-0.03) X10*3/uL Absolute Neuts (auto) 6.8 (2.0-8.3) x10*3/uL Absolute Nucleated RBC 0.000 (0.0-0.012) X10*3/uL Nucleated RBC % (auto) 0.0 (0.0-0.2) /100WBC Sodium (135-145) mmol/L Potassium (3.3-5.1) mmol/L Chloride (96-108) mmol/L Carbon Dioxide (22-29) mmol/L Anion Gap (12-20) BUN (9-16) mg/dL Creatinine (0.5-1.4) mg/dL Estim Creat Clear Calc Estimated GFR Random Glucose (60-115) mg/dL Calcium (8.4-10.2) mg/dL Magnesium (1.6-2.6) mg/dL Total Bilirubin (0.0-1.0) mg/dL Direct Bilirubin (0.0-0.5) mg/dL AST (5-31) U/L ALT (0-31) U/L Alkaline Phosphatase (39-117) U/L Troponin I High Sens (<3.5-17.0) ng/L Total Protein (6.5-8.0) g/dL Albumin (3.5-5.0) g/dL Lipase (8-78) U/L Urine Color YELLOW Urine Appearance CLEAR Urine pH 6.5 (5.0-8.0) Ur Specific [place] 1.010 (1.005-1.025) Urine Protein NEG (NEG-TRACE) MG/DL Urine Glucose (UA) NEG (NEG) MG/DL Urine Ketones NEG (NEG) MG/DL Urine Blood TRACE (NEG) Urine Nitrite NEG (NEG) Ur Leukocyte Esterase NEG (NEG) Urine RBC 1-4 (0) /HPF Urine WBC 0-2 (0-4) /HPF Ur Squamous Epith Cells NONE /LPF Urine Bacteria NONE /LPF COVID-19 ([facility]) Negative (Negative) COVID-19 Clin Com See Note Influenza Type A (AUDIE) (Negative) Influenza Type B (AUDIE) (Negative) Influenza A & B Note 01/19/22 Range/Units 18:41 WBC (4.8-10.8) X10*3/uL RBC (4.20-5.50) X10*6/uL Hgb (12.0-16.0) g/dl Hct (37.0-47.0) % MCV (80.0-98.0) fL MCH (27.0-33.0) pg MCHC (31.0-35.0) g/dl RDW (11.0-16.0) % Plt Count (160-400) X10*3/uL MPV (9.4-12.3) fL Immature Gran % (Auto) (0.0-0.4) % Neut % (Auto) (45-73) % Lymph % (Auto) (20-40) % [place] % (Auto) (2-11) % Eos % (Auto) (0-4) % Baso % (Auto) (0-2) % Lymph # (Auto) (1.2-4.9) X10*3/uL [place] # (Auto) (0.1-1.2) X10*3/uL Eos # (Auto) (0.0-0.4) X10*3/uL Baso # (Auto) (0.0-0.2) X10*3/uL Abs Immat Gran (auto) (0.00-0.03) X10*3/uL Absolute Neuts (auto) (2.0-8.3) x10*3/uL Absolute Nucleated RBC (0.0-0.012) X10*3/uL Nucleated RBC % (auto) (0.0-0.2) /100WBC Sodium (135-145) mmol/L Potassium (3.3-5.1) mmol/L Chloride (96-108) mmol/L Carbon Dioxide (22-29) mmol/L Anion Gap (12-20) BUN (9-16) mg/dL Creatinine (0.5-1.4) mg/dL Estim Creat Clear Calc Estimated GFR Random Glucose (60-115) mg/dL Calcium (8.4-10.2) mg/dL Magnesium (1.6-2.6) mg/dL Total Bilirubin (0.0-1.0) mg/dL Direct Bilirubin (0.0-0.5) mg/dL AST (5-31) U/L ALT (0-31) U/L Alkaline Phosphatase (39-117) U/L Troponin I High Sens < 3.5 (<3.5-17.0) ng/L Total Protein (6.5-8.0) g/dL Albumin (3.5-5.0) g/dL Lipase (8-78) U/L Urine Color Urine Appearance Urine pH (5.0-8.0) Ur Specific [place] (1.005-1.025) Urine Protein (NEG-TRACE) MG/DL Urine Glucose (UA) (NEG) MG/DL Urine Ketones (NEG) MG/DL Urine Blood (NEG) Urine Nitrite (NEG) Ur Leukocyte Esterase (NEG) Urine RBC (0) /HPF Urine WBC (0-4) /HPF Ur Squamous Epith Cells /LPF Urine Bacteria /LPF COVID-19 ([facility]) (Negative) COVID-19 Clin Com Influenza Type A (AUDIE) (Negative) Influenza Type B (AUDIE) (Negative) Influenza A & B Note <Deja Dupree, CHARLENE - Last Filed: 01/19/22 18:36> Lab Results 01/19/22 01/19/22 01/19/22 Range/Units 13:03 13:03 14:04 WBC (4.8-10.8) X10*3/uL RBC (4.20-5.50) X10*6/uL Hgb (12.0-16.0) g/dl Hct (37.0-47.0) % MCV (80.0-98.0) fL MCH (27.0-33.0) pg MCHC (31.0-35.0) g/dl RDW (11.0-16.0) % Plt Count (160-400) X10*3/uL MPV (9.4-12.3) fL Immature Gran % (Auto) (0.0-0.4) % Neut % (Auto) (45-73) % Lymph % (Auto) (20-40) % [place] % (Auto) (2-11) % Eos % (Auto) (0-4) % Baso % (Auto) (0-2) % Lymph # (Auto) (1.2-4.9) X10*3/uL [place] # (Auto) (0.1-1.2) X10*3/uL Eos # (Auto) (0.0-0.4) X10*3/uL Baso # (Auto) (0.0-0.2) X10*3/uL Abs Immat Gran (auto) (0.00-0.03) X10*3/uL Absolute Neuts (auto) (2.0-8.3) x10*3/uL Absolute Nucleated RBC (0.0-0.012) X10*3/uL Nucleated RBC % (auto) (0.0-0.2) /100WBC Sodium 141 (135-145) mmol/L Potassium 4.0 (3.3-5.1) mmol/L Chloride 109 H (96-108) mmol/L Carbon Dioxide 26 (22-29) mmol/L Anion Gap 10 L (12-20) BUN 22 H D (9-16) mg/dL Creatinine 0.82 (0.5-1.4) mg/dL Estim Creat Clear Calc 40.0 Estimated GFR > 60 Random Glucose 144 H (60-115) mg/dL Calcium 9.0 D (8.4-10.2) mg/dL Magnesium 1.9 (1.6-2.6) mg/dL Total Bilirubin 0.2 (0.0-1.0) mg/dL Direct Bilirubin < 0.2 (0.0-0.5) mg/dL AST 31 (5-31) U/L ALT 29 (0-31) U/L Alkaline Phosphatase 55 (39-117) U/L Troponin I High Sens < 3.5 (<3.5-17.0) ng/L Total Protein 7.0 D (6.5-8.0) g/dL Albumin 3.9 (3.5-5.0) g/dL Lipase 34 (8-78) U/L Urine Color Urine Appearance Urine pH (5.0-8.0) Ur Specific [place] (1.005-1.025) Urine Protein (NEG-TRACE) MG/DL Urine Glucose (UA) (NEG) MG/DL Urine Ketones (NEG) MG/DL Urine Blood (NEG) Urine Nitrite (NEG) Ur Leukocyte Esterase (NEG) Urine RBC (0) /HPF Urine WBC (0-4) /HPF Ur Squamous Epith Cells /LPF Urine Bacteria /LPF COVID-19 ([facility]) (Negative) COVID-19 Clin Com Influenza Type A (AUDIE) Negative (Negative) Influenza Type B (AUDIE) Negative (Negative) Influenza A & B Note See Note 01/19/22 01/19/22 01/19/22 Range/Units 14:04 14:08 16:44 WBC 8.4 (4.8-10.8) X10*3/uL RBC 3.97 L (4.20-5.50) X10*6/uL Hgb 11.8 L (12.0-16.0) g/dl Hct 37.5 (37.0-47.0) % MCV 94.5 (80.0-98.0) fL MCH 29.7 (27.0-33.0) pg MCHC 31.5 (31.0-35.0) g/dl RDW 13.2 (11.0-16.0) % Plt Count 136 L D (160-400) X10*3/uL MPV 12.3 (9.4-12.3) fL Immature Gran % (Auto) 0.2 (0.0-0.4) % Neut % (Auto) 81.4 H (45-73) % Lymph % (Auto) 13.5 L (20-40) % [place] % (Auto) 4.1 (2-11) % Eos % (Auto) 0.4 (0-4) % Baso % (Auto) 0.4 (0-2) % Lymph # (Auto) 1.1 L (1.2-4.9) X10*3/uL [place] # (Auto) 0.3 (0.1-1.2) X10*3/uL Eos # (Auto) 0.0 (0.0-0.4) X10*3/uL Baso # (Auto) 0.0 (0.0-0.2) X10*3/uL Abs Immat Gran (auto) 0.02 (0.00-0.03) X10*3/uL Absolute Neuts (auto) 6.8 (2.0-8.3) x10*3/uL Absolute Nucleated RBC 0.000 (0.0-0.012) X10*3/uL Nucleated RBC % (auto) 0.0 (0.0-0.2) /100WBC Sodium (135-145) mmol/L Potassium (3.3-5.1) mmol/L Chloride (96-108) mmol/L Carbon Dioxide (22-29) mmol/L Anion Gap (12-20) BUN (9-16) mg/dL Creatinine (0.5-1.4) mg/dL Estim Creat Clear Calc Estimated GFR Random Glucose (60-115) mg/dL Calcium (8.4-10.2) mg/dL Magnesium (1.6-2.6) mg/dL Total Bilirubin (0.0-1.0) mg/dL Direct Bilirubin (0.0-0.5) mg/dL AST (5-31) U/L ALT (0-31) U/L Alkaline Phosphatase (39-117) U/L Troponin I High Sens (<3.5-17.0) ng/L Total Protein (6.5-8.0) g/dL Albumin (3.5-5.0) g/dL Lipase (8-78) U/L Urine Color YELLOW Urine Appearance CLEAR Urine pH 6.5 (5.0-8.0) Ur Specific [place] 1.010 (1.005-1.025) Urine Protein NEG (NEG-TRACE) MG/DL Urine Glucose (UA) NEG (NEG) MG/DL Urine Ketones NEG (NEG) MG/DL Urine Blood TRACE (NEG) Urine Nitrite NEG (NEG) Ur Leukocyte Esterase NEG (NEG) Urine RBC 1-4 (0) /HPF Urine WBC 0-2 (0-4) /HPF Ur Squamous Epith Cells NONE /LPF Urine Bacteria NONE /LPF COVID-19 ([facility]) Negative (Negative) COVID-19 Clin Com See Note Influenza Type A (AUDIE) (Negative) Influenza Type B (AUDIE) (Negative) Influenza A & B Note 01/19/22 Range/Units 18:41 WBC (4.8-10.8) X10*3/uL RBC (4.20-5.50) X10*6/uL Hgb (12.0-16.0) g/dl Hct (37.0-47.0) % MCV (80.0-98.0) fL MCH (27.0-33.0) pg MCHC (31.0-35.0) g/dl RDW (11.0-16.0) % Plt Count (160-400) X10*3/uL MPV (9.4-12.3) fL Immature Gran % (Auto) (0.0-0.4) % Neut % (Auto) (45-73) % Lymph % (Auto) (20-40) % [place] % (Auto) (2-11) % Eos % (Auto) (0-4) % Baso % (Auto) (0-2) % Lymph # (Auto) (1.2-4.9) X10*3/uL [place] # (Auto) (0.1-1.2) X10*3/uL Eos # (Auto) (0.0-0.4) X10*3/uL Baso # (Auto) (0.0-0.2) X10*3/uL Abs Immat Gran (auto) (0.00-0.03) X10*3/uL Absolute Neuts (auto) (2.0-8.3) x10*3/uL Absolute Nucleated RBC (0.0-0.012) X10*3/uL Nucleated RBC % (auto) (0.0-0.2) /100WBC Sodium (135-145) mmol/L Potassium (3.3-5.1) mmol/L Chloride (96-108) mmol/L Carbon Dioxide (22-29) mmol/L Anion Gap (12-20) BUN (9-16) mg/dL Creatinine (0.5-1.4) mg/dL Estim Creat Clear Calc Estimated GFR Random Glucose (60-115) mg/dL Calcium (8.4-10.2) mg/dL Magnesium (1.6-2.6) mg/dL Total Bilirubin (0.0-1.0) mg/dL Direct Bilirubin (0.0-0.5) mg/dL AST (5-31) U/L ALT (0-31) U/L Alkaline Phosphatase (39-117) U/L Troponin I High Sens < 3.5 (<3.5-17.0) ng/L Total Protein (6.5-8.0) g/dL Albumin (3.5-5.0) g/dL Lipase (8-78) U/L Urine Color Urine Appearance Urine pH (5.0-8.0) Ur Specific [place] (1.005-1.025) Urine Protein (NEG-TRACE) MG/DL Urine Glucose (UA) (NEG) MG/DL Urine Ketones (NEG) MG/DL Urine Blood (NEG) Urine Nitrite (NEG) Ur Leukocyte Esterase (NEG) Urine RBC (0) /HPF Urine WBC (0-4) /HPF Ur Squamous Epith Cells /LPF Urine Bacteria /LPF COVID-19 ([facility]) (Negative) COVID-19 Clin Com Influenza Type A (AUDIE) (Negative) Influenza Type B (AUDIE) (Negative) Influenza A & B Note <Kaushik Rolle MD - Last Filed: 01/19/22 20:25> Imaging Data Chest x-ray: Radiologist's impression: XR/XR chest 2V IMPRESSION: Stable enlargement of the cardiac silhouette. No evidence for acute disease in the chest. <Deja Dupree CNP - Last Filed: 01/19/22 18:36> CT scan - head: Radiologist's impression: CT/CT head/brain wo con IMPRESSION: No acute intracranial pathology. <Deja DupreeCHARLENE - Last Filed: 01/19/22 18:36> ECG Data Attestation: I personally reviewed and interpreted this ECG as follows: <Deja StovallCHARLENE monroe - Last Filed: 01/19/22 18:36> ECG interpretation date: 01/19/22 <Deja DupreeCHARLENE - Last Filed: 01/19/22 18:36> ECG interpretation time: 13:30 <Deja StovallCHARLENE monroe - Last Filed: 01/19/22 18:36> Interpretation: Rate: 52 Rhythm:? sinus rhythm with first-degree AV block [place]:? normal Normal P waves.? prolonged NC interval, 210? Normal QRS complex.?? ST T wave :?? no ST elevation, no ST depression qTC: 412 prior studies:? September 2021 The study has been interpreted contemporaneously by me. <Deja DupreeCHARLENE - Last Filed: 01/19/22 18:36> Scores Heart Score History: -1- moderately suspicious <Deja Hoang CHARLENE Dupree - Last Filed: 01/09 10/02 18:36> ECG: -0- normal <Deja DupreeCHARLENE - Last Filed: 01/19/22 18:36> Age: -2- > or = 65 <Deja Judgemoe Dupree CNP - Last Filed: 01/19/22 18:36> Risk factory: -1- 1 or 2 risk factors <Deja Hoang CHARLENE Dupree - Last Filed: 01/19/22 18:36> Troponin: -0- < or = normal limit <Deja Natalyamoe Dupree CNP - Last Filed: 01/19/22 18:36> Score: 4 <Deja Natalyamoe Dupree CNP - Last Filed: 01/19/22 18:36> 4 <Kaushik Rolle MD - Last Filed: 01/19/22 20:25> Risk: 16.6% <Deja Natalyamoe Dupree CNP - Last Filed: 01/19/22 18:36> 16.6% <Kaushik Rolle MD - Last Filed: 01/19/22 20:25> Discharge Plan Discharge Clinical Impression: Chest pain, Gastroenteritis <Deja Dupree CNP - Last Filed: 01/19/22 18:36> Patient Disposition: Home, Self-Care <Deja Dupree CNP - Last Filed: 01/19/22 18:36> Instructions: Chest Pain (ED), Gastroenteritis (ED) <Deja Dupree CNP - Last Filed: 01/19/22 18:36> Additional Instructions: Drink plenty of fluids Med for nausea Follow up with PCP/cardiology for further workup >> echo and stress test <Deja Dupree CNP - Last Filed: 01/19/22 18:36> Prescriptions: New ondansetron 4 mg tablet,disintegrating 4 mg PO Q6-8H PRN (Reason: nausea and vomiting) Qty: 7 0RF No Action levofloxacin 500 mg tablet 500 mg PO DAILY Qty: 6 0RF <Deja Dupree CNP - Last Filed: 01/19/22 18:36>
[2022-01-19 15:46] VITALS: BP 135/60; PULSE 64; RESP 13; TEMP 36.5; O2SAT 99
[2022-01-19 16:11] VITALS: BP 142/53; PULSE 65; RESP 14; O2SAT 98
[2022-01-19 16:57] LABS: Appearance Urine CLEAR; Color Urine YELLOW; Glucose Urine UA NEG (NEG); Leukocyte Esterase Urine NEG (NEG); Nitrite Urine NEG (NEG); PH 6.5 (5.0-8.0); UACC Culture Trigger NO; Urine Blood TRACE (NEG); Urine Ketones NEG (NEG); Urine Protein NEG (NEG-TRACE)
[2022-01-19 17:06] LABS: WBC Urine 0-2 /HPF (0-4)
--- NOTE | 2022-01-19 17:51 | ECG_ITS ---
Test Reason : repeat Blood Pressure : / mmHG Vent. Rate : 062 BPM Atrial Rate : 062 BPM P-R Int : 174 ms QRS Dur : 072 ms QT Int : 402 ms P-R-T Axes : 012 027 055 degrees QTc Int : 408 ms Normal sinus rhythm Normal ECG When compared with ECG of 19-JAN-2022 12:31, AR interval has decreased Referred By: Deja Dupree Electronically Signed By:KODAK TIAN MD
[2022-01-19 18:27] VITALS: BP 155/72; PULSE 66; RESP 15; TEMP 36.7; O2SAT 95
[2022-01-19 19:05] LABS: Troponin-I High Sensitivity < 3.5 ng/L (<3.5-17.0)
[2022-01-19] MEDS: Ketorolac Tromethamine 30 MG/ML VIAL IM (20:07)
== END 2022-01-19 20:39 | disposition home or self-care (01) ==
PROVIDERS: Nurse Practitioner Family; Emergency Provider Emergency Medicine Emergency Medical Services
DX: K52.9 Noninfective gastroenteritis and colitis, unspecified (principal); R42 Dizziness and giddiness; R11.2 Nausea with vomiting, unspecified; Z20.822 Contact with and (suspected) exposure to COVID-19; Z79.899 Other long term (current) drug therapy
CPT/HCPCS: 36415; 70450; 71046; 80048; 80076; 81001; 83690; 83735; 84484; 85025; 87502; 87635; 93005; 96361; 96372; 96374; 99284; 99285; J1885; J2405

== ENCOUNTER 2023-07-22 23:21 | Observation (INO) | payer MEDICARE, MEDICAID, SELFPAY ==
--- NOTE | 2023-07-22 | ECG_ITS ---
Test Reason : SYNCOPE Blood Pressure : / mmHG Vent. Rate : 055 BPM Atrial Rate : 055 BPM P-R Int : 194 ms QRS Dur : 082 ms QT Int : 444 ms P-R-T Axes : 032 026 071 degrees QTc Int : 424 ms Sinus bradycardia Otherwise normal ECG When compared with ECG of 19-JAN-2022 18:08, No significant change was found Referred By: Generic ED Physician Electronically Signed By:KATYA SZYMANSKI MD
--- NOTE | ~2023-07-22 | XR_ITS ---
EXAMINATION: XR CHEST CLINICAL INFORMATION: Syncope. COMPARISON: 01/19/2022. TECHNIQUE: Frontal view of the chest was obtained. FINDINGS: The cardiomediastinal silhouette is stable. There is no focal lung consolidation or pleural effusion. The bony structures and soft tissues are unremarkable. XR/XR chest 1V IMPRESSION: No active cardiopulmonary disease.
[2023-07-22 23:29] VITALS: BP 100/56; BP 139/63; PULSE 53; PULSE 55; RESP 16; TEMP 36.4; O2SAT 100; O2SAT 97; BMI 22.0
--- NOTE | 2023-07-22 23:54 | ED_ITS ---
HPI - Syncope General Chief Complaint: Syncope Stated Complaint: syncope drowsiness Time Seen by Provider: 07/22/23 23:45 Source: patient, family ( niece), EMS and academic support specialist Mode of arrival: EMS Limitations: no limitations History of Present Illness HPI narrative: 83-year-old female citizen of [place] speaking came in with family after had a syncopal episode. Just prior to her arrival to the ED patient felt lightheadedness and dizzy lately patient is a witnessed by family family had had syncopal episode lasted minutes patient was diaphoretic and pale, patient decline SOB or CP, no abdominal pain, nausea, vomiting, diarrhea, no fever, chills. Patient is complaining of feeling cold in the ED. Related Data Previous Rx's Medication Instructions Recorded levofloxacin 500 mg tablet 500 mg PO DAILY #6 tabs 10/05/21 ondansetron 4 mg disintegrating 4 mg PO Q6-8H PRN nausea and 01/19/22 tablet vomiting #7 tabs Allergies Allergy/AdvReac Type Severity Reaction Status Date / Time No Known Allergies Allergy Unverified 04/08/21 03:46 Review of Systems 2 Review of Systems: All other systems are reviewed and are negative Constitutional: Reports as per HPI and Reports no additional constitutional complaints Eyes: Reports as per HPI and Reports no additional eye complaints Reports system reviewed and no additional complaints, except as documented Cardiovascular: Reports as per HPI and Reports no additional cardiovascular complaints Respiratory: Reports as per HPI and Reports no additional respiratory complaints Gastrointestinal: Reports as per HPI and Reports no additional gastrointestinal complaints Genitourinary: Reports no additional female genitourinary complaints Musculoskeletal: Reports no additional musculoskeletal complaints Skin/Breast: Reports system reviewed and no additional complaints, except as docu Psychiatric: Reports no additional psychiatric complaints Endocrine: Reports no additional endocrine complaints Hematologic/Lymphatic: Reports no additional hematologic/lymphatic complaints Allergic/Immunologic: Reports no additional allergic/immunologic complaints Reports system reviewed and no additional complaints, except as documented and Reports Abnormal speech present [facility] Past Medical History Medical History Essential hypertension Graves disease Social History Social History Advance Directives: No Advance Directives Information Provided: No Physical Exam 2 Vital Signs: Vital Signs: Last Vital Signs Temp 97.6 F 07/22/23 23:29 Pulse 61 07/23/23 00:05 Resp 16 07/22/23 23:29 BP 146/56 H 07/23/23 00:05 Pulse Ox 100 07/22/23 23:29 O2 Del Method Room Air 07/22/23 23:29 BMI result Body Mass Index 22.0 Vital signs have been reviewed and appear to be correct. Blood pressure elevated. Heart rate normal. Respiratory rate normal. Temperature normal. Oxygen saturation normal. Appearance: Alert. Oriented X3. No acute distress. Head: Normal external exam. Normocephalic. Atraumatic. No Ortez signs noted. No raccoon eyes noted Eyes: PERRLA. EOMI. Conjunctiva and sclera normal. Eyelids normal. ENT: TM's Normal. Pharynx normal. Uvula midline. Moist mucous membranes. No trismus noted. No drooling noted. No muffled voice noted. Neck: Normal inspection. Neck supple. FROM. No adenopathy. Thyroid Normal. No meningeal signs. No neck mass noted. CVS: Normal heart rate and rhythm. Heart sound normal. No murmurs noted. Pulses normal throughout. Respiratory: No respiratory distress. Painless inspiration. Breath sounds normal. No wheezes/rales/rhonchi noted. Chest nontender. No accessory muscle usage noted or decreased air movement noted. Abdomen: Soft and nontender. Bowel sounds normal in all 4 quadrants. No distention noted. No organomegaly noted. No visible injury noted. Back: No CVA tenderness. Full range of motion noted. Skin: Skin warm and dry. Normal skin color. Normal skin turgor. No rashes/lesions/lacerations noted. Extremities: No lower extremity edema. Extremities exhibit normal range of motion. Extremities nontender. Neuro: Oriented X 3. Cranial nerve exam: II-XII are grossly intact No motor deficit. No sensory deficit. Reflexes normal. Course Reevaluation(s) Reevaluation #1: 83-year-old female brought in by her family after witnessed syncopal episode at home, patient in the ED is stable. Will admit the patient for further cardiac monitoring. Time: 01:35 Medical Decision Making Differential Diagnosis Differential Diagnoses: The differential diagnosis associated with the presentation includes ( ACS, electrolyte abnormality, dysrhythmia, severe anemia, dehydration, pneumonia, pneumothorax.) Admission/Observation Consideration of admission/observation: Escalation of care including admission/observation considered Consult Healthcare Provider Management of the patient was discussed with: Hospitalist (Dr. Mathias) Lab Data MDM Lab Attestation statement: I reviewed the patient's lab results. 07/23/23 00:20 07/23/23 00:20 Labs: Lab Results 07/23/23 Range/Units 00:20 WBC 6.8 (4.8-10.8) X10*3/uL RBC 3.96 L (4.20-5.50) X10*6/uL Hgb 11.6 L (12.0-16.0) g/dl Hct 36.1 L (37.0-47.0) % MCV 91.2 (80.0-98.0) fL MCH 29.3 (27.0-33.0) pg MCHC 32.1 (31.0-35.0) g/dl RDW 12.8 (11.0-16.0) % Plt Count 153 L (160-400) X10*3/uL MPV 11.8 (9.4-12.3) fL Immature Gran % (Auto) 0.4 (0.0-0.4) % Neut % (Auto) 69.7 (45-73) % Lymph % (Auto) 22.6 (20-40) % [place] % (Auto) 6.3 (2-11) % Eos % (Auto) 0.6 (0-4) % Baso % (Auto) 0.4 (0-2) % Lymph # (Auto) 1.5 (1.2-4.9) X10*3/uL [place] # (Auto) 0.4 (0.1-1.2) X10*3/uL Eos # (Auto) 0.0 (0.0-0.4) X10*3/uL Baso # (Auto) 0.0 (0.0-0.2) X10*3/uL Abs Immat Gran (auto) 0.03 (0.00-0.03) X10*3/uL Absolute Neuts (auto) 4.7 (2.0-8.3) x10*3/uL Absolute Nucleated RBC 0.000 (0.0-0.012) X10*3/uL Nucleated RBC % (auto) 0.0 (0.0-0.2) /100WBC Sodium 143 (135-145) mmol/L Potassium 4.2 (3.3-5.1) mmol/L Chloride 105 (96-108) mmol/L Carbon Dioxide 30 H (22-29) mmol/L Anion Gap 12 (12-20) BUN 22 H (9-16) mg/dL Creatinine 0.82 (0.5-1.4) mg/dL Estim Creat Clear Calc 46.4 Estimated GFR > 60 Random Glucose 110 (60-115) mg/dL Calcium 9.5 (8.4-10.2) mg/dL Total Bilirubin 0.2 (0.0-1.0) mg/dL AST 23 (5-31) U/L ALT 13 (0-31) U/L Alkaline Phosphatase 56 (39-117) U/L Troponin I High Sens 3.8 (<3.5-17.0) ng/L B-Natriuretic Peptide 37 (<100) pg/mL Total Protein 7.9 (6.5-8.0) g/dL Albumin 4.4 (3.5-5.0) g/dL Influenza Type A (PCR) NEGATIVE (Negative) Influenza Type B (PCR) NEGATIVE (Negative) RSV RNA Qual (PCR) NEGATIVE (Negative) SARS-CoV-2 RNA (RT-PCR) NEGATIVE (Negative) Independent Interpretation I performed an independent interpretation of an: EKG ( Sinus bradycardia at 55 beats per minutes, normal axis deviation, normal intervals, no ST-T changes.) Radiology Impression Discussion of test interpretation with radiology: I have reviewed the radiologist's reading. Discharge Plan Discharge Clinical Impression: Syncope Patient Disposition: Admitted As Inpatient
[2023-07-23] VITALS: O2SAT 98
[2023-07-23 00:04] VITALS: BP 123/66; PULSE 63
[2023-07-23 00:05] VITALS: BP 135/109; BP 146/56; PULSE 59; PULSE 61
--- NOTE | 2023-07-23 00:15 | PC.NURSE ---
pt ZACH from home. pt had syncopal episode after walking around in her house. pt placed self in chair and according to family passed out for 5 minutes . pt family reports pt ambulates without walker and was able to place self in chair prior to episode. pt denies pain at this time. in ambulance pt o2 at 91%, placed on 2L and sating at 97%. this RN removed pt off o2, pt sating 100% room air. pt incontinent of BM upon arrival, pt cleaned and repositioned. provider at bedside to discuss pt care. pt normal sinus on tele 60-62.
[2023-07-23 00:25] LABS: MANUAL DIFF FLAG NO
[2023-07-23 00:26] LABS: Basophils Percent Auto 0.4 % (0-2); Eosinophils Percent Auto 0.6 % (0-4); Hematocrit 36.1 % (37.0-47.0); Hemoglobin 11.6 g/dl (12.0-16.0); Imm Gran Abs Auto 0.03 X10*3/uL (0.00-0.03); Imm Gran Pct Auto 0.4 % (0.0-0.4); Lymphocytes Absolute Auto 1.5 X10*3/uL (1.2-4.9); Lymphocytes Percent Auto 22.6 % (20-40); Mean Corpuscular HGB Conc 32.1 g/dl (31.0-35.0); Mean Corpuscular Hemoglobin 29.3 pg (27.0-33.0); Mean Corpuscular Volume 91.2 fL (80.0-98.0); Mean Platelet Volume 11.8 fL (9.4-12.3); Monocytes Absolute Auto 0.4 X10*3/uL (0.1-1.2); Monocytes Percent Auto 6.3 % (2-11); Neutrophils Absolute Auto 4.7 x10*3/uL (2.0-8.3); Neutrophils Percent Auto 69.7 % (45-73); Platelet Count 153 X10*3/uL (160-400); Red Blood Count 3.96 X10*6/uL (4.20-5.50); Red Cell Distribution Width 12.8 % (11.0-16.0); White Blood Count 6.8 X10*3/uL (4.8-10.8)
[2023-07-23 00:42] LABS: Alanine Aminotransferase 13 U/L (0-31); Albumin Level 4.4 g/dL (3.5-5.0); Alkaline Phosphatase 56 U/L (39-117); Anion Gap 12 (12-20); Aspartate Amino Transferase 23 U/L (5-31); Bilirubin Total 0.2 mg/dL (0.0-1.0); Blood Urea Nitrogen 22 mg/dL (9-16); Calcium 9.5 mg/dL (8.4-10.2); Carbon Dioxide 30 mmol/L (22-29); Chloride 105 mmol/L (96-108); Creatinine Clr Calc Pharmacy 46.4; Estimated Glomerular Filt Rate > 60; Glucose Random 110 mg/dL (60-115); Potassium 4.2 mmol/L (3.3-5.1); Sodium 143 mmol/L (135-145); Total Protein 7.9 g/dL (6.5-8.0)
[2023-07-23 00:46] LABS: B Type Natriuretic Peptide 37 pg/mL (<100)
[2023-07-23 00:49] LABS: Troponin-I High Sensitivity 3.8 ng/L (<3.5-17.0)
--- NOTE | 2023-07-23 00:51 | PC.NURSE ---
Pt's Evelyne Slaughter, went home. Stated she can come in if needed for d/c. Evelyne: [phone]
[2023-07-23 01:02] LABS: Influenza A PCR NEGATIVE (Negative); Influenza B PCR NEGATIVE (Negative); Resp Syncy Virus RNA Qual PCR NEGATIVE (Negative); SARS COV2 PCR INHOUSE NEGATIVE (Negative)
--- NOTE | 2023-07-23 01:26 | P.HPHOSP_ITS ---
History of Present Illness Date of Service: 07/23/23 Chief Complaint: Syncope This is a 83-year-old female from [facility] with pertinent history of hyperthyroidism, essential hypertension who presents to the emergency department for evaluation of syncope. History obtained via e-presidential support specialist services. Patient states she started having episodes of nonbloody diarrhea on the day of presentation. Patient was sitting in her chair. While she was trying to stand, she got dizzy/lightheaded and passed out. No chest discomfort or palpitations prior to passing out. No jerking movement of extremities, no tongue bite. Patient states he is compliant with her medications., chills, shortness of breath, abdominal pain, changes in urinary or bowel habits. Review of Systems 2 Constitutional: Constitutional: Reports fatigue and Reports lethargy Cardiovascular: Cardiovascular: Reports no additional cardiovascular complaints and Reports syncope Respiratory: Respiratory: Reports no additional respiratory complaints Gastrointestinal: Gastrointestinal: Reports loose stools Genitourinary: Genitourinary: Reports no additional female genitourinary complaints Neurologic: Reports syncope Endocrine: Endocrine: Reports fatigue [facility] Medical History Essential hypertension Graves disease Pertinent family history: No family history of early CAD Social History Advance Directives: No Advance Directives Information Provided: No Meds Allergies Allergy/AdvReac Type Severity Reaction Status Date / Time No Known Allergies Allergy Unverified 04/08/21 03:46 Physical Exam 2 Vital Signs and Narrative: Vital Signs: Last Vital Signs Temp 97.6 F 07/22/23 23:29 Pulse 61 07/23/23 00:05 Resp 16 07/22/23 23:29 BP 146/56 H 07/23/23 00:05 Pulse Ox 100 07/22/23 23:29 O2 Del Method Room Air 07/22/23 23:29 BMI result Body Mass Index 22.0 Elderly female lying in bed in no distress Neck supple, no JVD Regular rate and rhythm, S1-S2 heard Regular breath sounds bilaterally, no wheezing or crackles appreciated Abdomen soft nontender, no guarding, no rigidity Patient is awake, alert and oriented to self, place, time and person ; no focal motor deficit Psych: Normal mood No pedal edema Results Labs 07/23/23 00:20 07/23/23 00:20 Labs: Laboratory Results - last 24 hr 07/23/23 00:20 MCV 91.2 MCH 29.3 MCHC 32.1 RDW 12.8 Plt Count 153 L MPV 11.8 Immature Gran % (Auto) 0.4 Neut % (Auto) 69.7 Lymph % (Auto) 22.6 [place] % (Auto) 6.3 Eos % (Auto) 0.6 Baso % (Auto) 0.4 Lymph # (Auto) 1.5 [place] # (Auto) 0.4 Eos # (Auto) 0.0 Baso # (Auto) 0.0 Abs Immat Gran (auto) 0.03 Absolute Neuts (auto) 4.7 Absolute Nucleated RBC 0.000 Nucleated RBC % (auto) 0.0 Anion Gap 12 Estim Creat Clear Calc 46.4 Estimated GFR > 60 Random Glucose 110 Calcium 9.5 Total Bilirubin 0.2 AST 23 ALT 13 Alkaline Phosphatase 56 B-Natriuretic Peptide 37 Total Protein 7.9 Albumin 4.4 Influenza Type A (PCR) NEGATIVE Influenza Type B (PCR) NEGATIVE RSV RNA Qual (PCR) NEGATIVE SARS-CoV-2 RNA (RT-PCR) NEGATIVE Assessment and Plan (1) Syncope: Status: Acute Plan This is a 83-year-old female from [facility] with pertinent history of hyperthyroidism, essential hypertension who presents to the emergency department for evaluation of syncope. #. Syncope, likely orthostatic: Will admit patient with cardiac monitoring. Resuscitating with IV crystalloids. Obtain orthostatics in a.m.. #. Acute diarrhea, likely gastroenteritis: Symptomatic treatment for now. GI panel ordered #. Graves disease: On methimazole. Obtaining TSH Med rec pending Full code Quality Stroke Does the patient have a stroke diagnosis?: No VTE Prior VTE?: No VTE Risk Level:: Medical - moderate - high VTE Device Contraindication: Treatment Not Indicated VTE Drug Contraindication: N/A - Med Ordered
[2023-07-23 02:05] LABS: Thyroid Stimulating Hormone 13.83 uIU/mL (0.32-4.0)
[2023-07-23] MEDS: 0.9 % Sodium Chloride 1,000 ML 999 ML IV (02:25)
[2023-07-23] MEDS: Enoxaparin Sodium 40 MG/0.4 ML SYRINGE SUBCUT (02:25)
--- NOTE | 2023-07-23 02:30 | PC.NURSE ---
pt medicated per mar. pt denies pain at this time. pt resting with warm blankets, no acute distress.
[2023-07-23 03:27] LABS: Appearance Urine Clear; Color Urine Yellow; Glucose Urine UA Negative (Negative); Leukocyte Esterase Urine Small (1+) (Negative); Nitrite Urine Negative (Negative); Specific Gravity - Urine 1.015 (1.005-1.025); UMIC TRIGGER UACC YES; Urine Blood Negative (Negative); Urine Ketones Negative (Negative); Urine Protein Negative (Neg-Trace)
[2023-07-23 03:32] LABS: Bacteria Urine None Seen (None Seen); Hyaline Casts Urine 0-2 /LPF (0-2); RBC Urine 0-2 /HPF (0-2); Squamous Epithelial Cell Urine 0-2 /HPF (0-2); UACC Culture Trigger YES
[2023-07-23 06:19] LABS: MANUAL DIFF FLAG NO
[2023-07-23 06:26] VITALS: BP 157/56; PULSE 63; RESP 14; TEMP 36.8; O2SAT 98
[2023-07-23 06:31] LABS: Basophils Percent Auto 0.3 % (0-2); Eosinophils Percent Auto 0.3 % (0-4); Hematocrit 31.3 % (37.0-47.0); Hemoglobin 10.1 g/dl (12.0-16.0); Imm Gran Abs Auto 0.01 X10*3/uL (0.00-0.03); Imm Gran Pct Auto 0.2 % (0.0-0.4); Lymphocytes Absolute Auto 1.5 X10*3/uL (1.2-4.9); Lymphocytes Percent Auto 23.9 % (20-40); Mean Corpuscular HGB Conc 32.3 g/dl (31.0-35.0); Mean Corpuscular Hemoglobin 29.4 pg (27.0-33.0); Mean Platelet Volume 12.2 fL (9.4-12.3); Monocytes Absolute Auto 0.4 X10*3/uL (0.1-1.2); Monocytes Percent Auto 6.7 % (2-11); Neutrophils Absolute Auto 4.4 x10*3/uL (2.0-8.3); Neutrophils Percent Auto 68.6 % (45-73); Platelet Count 143 X10*3/uL (160-400); Red Blood Count 3.44 X10*6/uL (4.20-5.50); Red Cell Distribution Width 12.9 % (11.0-16.0); White Blood Count 6.4 X10*3/uL (4.8-10.8)
[2023-07-23 06:36] LABS: Anion Gap 9 (12-20); Blood Urea Nitrogen 17 mg/dL (9-16); Calcium 8.3 mg/dL (8.4-10.2); Carbon Dioxide 28 mmol/L (22-29); Chloride 109 mmol/L (96-108); Creatinine Clr Calc Pharmacy 59.5; Estimated Glomerular Filt Rate > 60; Glucose Random 104 mg/dL (60-115); Potassium 3.8 mmol/L (3.3-5.1); Sodium 142 mmol/L (135-145)
--- NOTE | 2023-07-23 08:19 | PC.NURSE ---
patient appears to be asleep, patient respirations equal and unlabored. patient shows no signs of distress, utilizes call [facility] apropriatly
[2023-07-23 08:54] VITALS: BP 140/68; PULSE 59; RESP 12; O2SAT 99
[2023-07-23] MEDS: 0.9 % Sodium Chloride Flush 3 ML SYRINGE IVFLUSH (08:55)
--- NOTE | 2023-07-23 10:06 | PHA.MEDREC ---
Pharmacy Consult ? Medication Reconciliation Pharmacy has completed the medication reconciliation. spoke with a few different family members to confirm medications as what the family is saying does not seem to match up with claim history. 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 Family member over the phone confirmed that there were still pills in the bottle of propranolol. They were confident that she is only taking 3 medications for headache, blood pressure, and heart and not the thyroid. MD is aware and is planning to go with what family is saying. Patient should clarify medications with PCP.
--- NOTE | 2023-07-23 10:06 | MHC.EDTECH ---
Ambulated patient to bathroom with strong, steady gait.
--- NOTE | 2023-07-23 10:12 | PM.DS ---
DS: Providers Provider Date of Service: 07/23/23 Date of admission: 07/23/23 01:24 Primary care physician: Alban Byrne MD DS: Diagnosis Discharge Diagnosis (1) Syncope: Status: Acute DS: Summary Hospital Course Hospital Course: from initial hpi: 83-year-old female from [facility] with pertinent history of hyperthyroidism, essential hypertension who presents to the emergency department for evaluation of syncope. History obtained via e-release specialist services. Patient states she started having episodes of nonbloody diarrhea on the day of presentation. Patient was sitting in her chair. While she was trying to stand, she got dizzy/lightheaded and passed out. No chest discomfort or palpitations prior to passing out. No jerking movement of extremities, no tongue bite. Patient states he is compliant with her medications., chills, shortness of breath, abdominal pain, changes in urinary or bowel habits. hospital course: Patient was admitted for syncope, likely due to orthostatic hypotension versus vasovagal syncope. No events on telemetry. She should change her amlodipine 5 mg to bedtime. For history of hyperthyroidism it is unclear if patient is currently on methimazole. Current TSH is 11, should hold for now and follow up with primary care physician. Time Attestation Discharge coordination time: Greater than 30 minutes Quality: Safe Use of Opioids Does Pt have an Active Cancer Diagnosis on the Problem List?: No Quality: Stroke Does the patient have a stroke diagnosis?: No Physical Exam Vital Signs: Vital Signs: Last Vital Signs Temp 98.3 F 07/23/23 06:26 Pulse 59 07/23/23 08:54 Resp 12 07/23/23 08:54 BP 140/68 H 07/23/23 08:54 Pulse Ox 99 07/23/23 08:54 O2 Del Method Room Air 07/23/23 08:54 BMI result Body Mass Index 22.0 Appearance: Alert. Oriented X3. No acute distress. Head: Normal external exam. Normocephalic. Atraumatic. No Ortez signs noted. No raccoon eyes noted Eyes: PERRLA. EOMI. Conjunctiva and sclera normal. Eyelids normal. ENT: TM's Normal. Pharynx normal. Uvula midline. Moist mucous membranes. No trismus noted. No drooling noted. No muffled voice noted. Neck: Normal inspection. Neck supple. FROM. No adenopathy. Thyroid Normal. No meningeal signs. No neck mass noted. CVS: Normal heart rate and rhythm. Heart sound normal. No murmurs noted. Pulses normal throughout. Respiratory: No respiratory distress. Painless inspiration. Breath sounds normal. No wheezes/rales/rhonchi noted. Chest nontender. No accessory muscle usage noted or decreased air movement noted. Abdomen: Soft and nontender. Bowel sounds normal in all 4 quadrants. No distention noted. No organomegaly noted. No visible injury noted. Back: No CVA tenderness. Full range of motion noted. Skin: Skin warm and dry. Normal skin color. Normal skin turgor. No rashes/lesions/lacerations noted. Extremities: No lower extremity edema. Extremities exhibit normal range of motion. Extremities nontender. Neuro: Oriented X 3. Cranial nerve exam: II-XII are grossly intact No motor deficit. No sensory deficit. Reflexes normal. DS: Data Data Completed and Pending Labs on day of discharge: Laboratory Results - last 24 hr 07/23/23 07/23/23 07/23/23 00:20 03:21 06:00 WBC 6.8 6.4 RBC 3.96 L 3.44 L Hgb 11.6 L 10.1 L Hct 36.1 L 31.3 L MCV 91.2 91.0 MCH 29.3 29.4 MCHC 32.1 32.3 RDW 12.8 12.9 Plt Count 153 L 143 L MPV 11.8 12.2 Immature Gran % (Auto) 0.4 0.2 Neut % (Auto) 69.7 68.6 Lymph % (Auto) 22.[address] [place] % (Auto) 6.3 6.7 Eos % (Auto) 0.6 0.3 Baso % (Auto) 0.4 0.3 Lymph # (Auto) 1.[address] # (Auto) 0.4 0.4 Eos # (Auto) 0.0 0.0 Baso # (Auto) 0.0 0.0 Abs Immat Gran (auto) 0.03 0.01 Absolute Neuts (auto) 4.7 4.4 Absolute Nucleated RBC 0.000 0.000 Nucleated RBC % (auto) 0.0 0.0 Sodium 143 142 Potassium 4.2 3.8 Chloride 105 109 H Carbon Dioxide 30 H 28 Anion Gap 12 9 L BUN 22 H 17 H Creatinine 0.82 0.64 Estim Creat Clear Calc 46.4 59.5 Estimated GFR > 60 > 60 Random Glucose 110 104 Calcium 9.5 8.3 L D Total Bilirubin 0.2 AST 23 ALT 13 Alkaline Phosphatase 56 Troponin I High Sens 3.8 B-Natriuretic Peptide 37 Total Protein 7.9 Albumin 4.4 TSH 13.83 H Urine Color Yellow Urine Appearance Clear Urine pH 7.0 Ur Specific [place] 1.015 Urine Protein Negative Urine Glucose (UA) Negative Urine Ketones Negative Urine Blood Negative Urine Nitrite Negative Ur Leukocyte Esterase Small (1+) H Urine RBC 0-2 Urine WBC 6-10 H Ur Squamous Epith Cells 0-2 Urine Bacteria None Seen Hyaline Casts 0-2 Influenza Type A (PCR) NEGATIVE Influenza Type B (PCR) NEGATIVE RSV RNA Qual (PCR) NEGATIVE SARS-CoV-2 RNA (RT-PCR) NEGATIVE Discharge Plan Discharge Anticipated Discharge Date/Time: 07/23/23 10:09 Patient Disposition: Home, Self-Care Discharge Diagnosis: syncope Referrals: Alban Byrne MD [Primary Care Provider] - 1 Week Discharge Medications: Continued [id number]-[id number]-[id number] 50-325-40 mg tablet 1 tab PO Q12H PRN (Reason: Headache) Changed amlodipine 5 mg tablet 5 mg PO BEDTIME Qty: 30 0RF Held propranolol 10 mg tablet 10 mg PO BID Hold Instructions: Resume on 08/07/23. clarify if supposed to be taking with pcp methimazole 5 mg tablet 5 mg PO DAILY Hold Instructions: Resume on 08/07/23. clarify if supposed to be taking with pcp Discharge Orders: Discharge Order (Routine); Ordered 07/23/23 Ordered By: Raffy Smallwood Diet: Advance to usual diet Activity on Discharge: As tolerated Stand Alone Forms: Patient Portal Discharge page Care Plan Goals: avoid sycnope Health Concerns: orthostatic vs vasovagal, med confusion Plan of Treatment: change amlodipine to bedtime, verify with pcp whether taking methimazole or propanolol Assessment: see above
--- NOTE | 2023-07-23 10:13 | MHC.EDTECH ---
Ambulated patient from bathroom back to room with a strong, steady gait. Patient states she had a bowel movement, but the patient had flushed the toilet after going.
--- NOTE | 2023-07-23 10:30 | PC.NURSE ---
patient resting in bed, respirations equal and unlabored. patient has family visiting at bedside, no signs of distress
== END 2023-07-23 12:12 | disposition home or self-care (01) ==
LOC: HO.ED 07-23 01:35 → HO.EDOVER 07-23 01:36
PROVIDERS: Admitting Provider Student in an Organized Health Care Education/Training Program; Emergency Provider Emergency Medicine; PCP Internal Medicine; Visit Provider Internal Medicine
DX: R55 Syncope and collapse (principal); R19.7 Diarrhea, unspecified; I10 Essential (primary) hypertension; E05.00 Thyrotoxicosis with diffuse goiter without thyrotoxic crisis or storm; R82.90 Unspecified abnormal findings in urine; Z20.822 Contact with and (suspected) exposure to COVID-19; Z20.828 Contact with and (suspected) exposure to other viral communicable diseases
CPT/HCPCS: 0241U; 36415; 71045; 80048; 80053; 81001; 83880; 84443; 84484; 85025; 87086; 93005; 96360; 96361; 96372; 99222; 99285; J1650

== ENCOUNTER → 2023-07-22 23:46 | Outpatient (BNV) | payer MEDICARE, MEDICAID, SELFPAY | PROVIDERS: Emergency Provider Emergency Medicine; PCP Internal Medicine; Visit Provider Student in an Organized Health Care Education/Training Program | DX: R55 Syncope and collapse (principal) | CPT/HCPCS: 99235; 99499 ==

== ENCOUNTER 2024-10-30 21:12 | Emergency (ER) | payer MEDICARE, MEDICAID, SELFPAY ==
--- NOTE | 2024-10-30 | ECG_ITS ---
Test Reason : SYNCOPY Blood Pressure : */* mmHG Vent. Rate : 65 BPM Atrial Rate : 65 BPM P-R Int : 158 ms QRS Dur : 82 ms QT Int : 416 ms P-R-T Axes : -1 41 82 degrees QTcB Int : 432 ms Normal sinus rhythm Normal ECG When compared with ECG of 22-Jul-2023 23:36, No significant change was found Referred By: Generic ED Physician Electronically Signed By: AGNIESZKA STEVENSON
--- NOTE | ~2024-10-30 | CT_ITS ---
CLINICAL HISTORY: ? syncope Fall CT cervical spine without contrast Comparison: None Findings: Cervical alignment is maintained with no subluxation. Vertebral body height is maintained. No acute fracture in the cervical spine. Craniocervical junction is intact. No significant degenerative changes. Posterior endplate osteophyte extending inferiorly at the C7-T1 level. Diffuse demineralization. Prevertebral soft tissues within limits. Atherosclerotic vascular disease. No consolidation or effusion at the lung apices. IMPRESSION: No acute findings. This document has been electronically signed by: Florence Oneal MD on 10/30/2024 22:35:39
--- NOTE | ~2024-10-30 | CT_ITS ---
CLINICAL HISTORY: ? syncope Fall CT head without contrast Comparison: None Findings: No intra-axial mass, midline shift, hydrocephalus, or acute hemorrhage. Mild atrophy. Nonspecific supratentorial white matter hypodensities most suggestive of chronic small-vessel ischemic changes. Atherosclerotic vascular disease. There is no sinus or mastoid fluid. The orbits are within normal limits. There is no acute skull fracture. IMPRESSION: 1. No acute intracranial findings. This document has been electronically signed by: Florence Oneal MD on 10/30/2024 23:02:51
[2024-10-30 21:15] VITALS: BP 124/70; PULSE 63; O2SAT 98
[2024-10-30 21:35] VITALS: BP 146/65; PULSE 65; RESP 18; TEMP 36.6; O2SAT 98; BMI 31.9
--- OUTSIDE RECORDS SUMMARY | 2024-10-30 21:42 | XMS_ITS | Patient Health Record ---
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 Name Role Phone GIO EWA Primary Care Provider DAYANAYUNIEL NICKOLAS Unavailable [phone] ALLERGIES No Known Allergies REASON FOR REFERRAL Reason Dr Michelle lam Diagnosis 1 Glaucoma screening ( Z13.5) Diagnosis 2 Watery eyes (H04.203 ) Referral Organization [facility] Referring Provider First Name EWA Referring Provider Last Name GIO Referring Provider Speciality Internal M edicine Referred Provider Ezra Lam Referred Provider Specialty Ophthalmolog y General Notes DANIEL BUENROSTRO 11/27 12:15:57 PM > faxed referral with office notes to CHITRA Tellez SHANIYA 12/27/2023 02:28:41 PM > no appt -Dr Nath does not take [employer] if member does not have Medicare Q[employer] plan Referral Priority Routine MEDICATIONS Medication SIG (Take, Route, Frequency, Duration) Notes Start Date End Date Status Topamax 25 MG 1 tablet at night Orally Once a day for 90 days 09/17/2024 Active Senna 8.6 MG 1 tablet at bedtime as needed for constipation Orally Once a day for 15 days 09/17/2024 Active Amitriptyline HCl 25 MG 1 tablet at bedt guilherme Orally Once a day for 90 days 06/11/2024 Active Eyolxdwprt-VWGF-Obmmbeqb 50-325-40 MG TAKE 1 TABLET BY MOUTH EVERY 12 HOURS NEEDED for 30 Active methIMAzole 5 MG TAKE 1 TABLET BY BERNY TH EVERY DAY WITH FOOD for 90 Active Propranolol HCl 10 MG 1 tablet Orally On ce a day for 30 days 05/23/2023 Not-Taking Docusate Sodium 100 MG 1 capsule as need ed for constipation Orally Once a day for 15 days 09/17/2024 Active Acetaminophen 500 MG 1 tablet as needed Orally every 6 hrs for 30 days 09/17/2024 Active amLODIPine Besylate 5 MG TAKE 1 TABLET B Y MOUTH EVERY DAY for 90 day(s) Active IMMUNIZATIONS Vaccine Route Administration Date Status Comme nts influenza IM Intramuscular 06/15/2020 Administered influenza IM Intramuscular 06/17/2021 Administered SOCIAL HISTORY Tobacco Use: Social History Observation Description Date Details (start date - stop date) Former Smoker NA - NA Sex Assigned At : Social History Observation Description Sex Assigned At Unknown Tobacco Use/Smoking Question Answer Notes Are you a former smoker PROBLEMS Problem Type ICD Code Onset Dates Problem Status W/U Status Risk SNOMED Code Notes Problem 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) Active confirmed Toxic diff use goiter with no crisis (088609330) Problem Type 2 diabetes mellitus with unspecified complications (E11.8) Active confirmed 05200860 Problem Vitamin D deficiency, unspecified (E55.9) Active confirmed 25920735 Problem Hyperlipidemia, unspecified (E78.5) Active confirmed Hyperlipidemia (81693788) Problem Anxiety disorder, unspecified (F41.9) Active confirmed Anxiety disorde r (304678056) Problem Gastro-esophageal reflux disease without esophagitis (K21.9) Active confirmed Gastro-esophage al reflux disease without esophagitis (093925827) Problem Abdominal distension (gaseous) (R14.0) Active confirmed Flatulence , eructation and gas pain (497186342) Problem Encounter for general adult medical examination without abnormal findings (Z00.00) Active confirmed 485433455 Problem Encounter for screening for lipoid disorders (Z13.220) Active confirmed Lipid screening (864532391) Problem Essential hypertension (I10) Active confirmed 38110103 Problem Hyperlipidemia, unspecified hyperlipidemia type (E78.5) Active confirmed 03013939 Problem Adult general medical exam (Z00.00) Active confirmed Adult health examination (041131778) Problem Dizziness (R42) Active confirmed Dizzin ess (279915682) Problem Hypothyroidism, unspecified type (E03.9) Active confirmed Hypothyroidism (42528104) Problem Headache, unspecified (R51.9) Active confirmed Headache (31733578) Problem Hyperthyroidism (E05.90) Active confirmed Hyperthyroidism (47677785) Problem Acute constipation (K59.00) Active confirmed 175831501 Problem Migraine without aura and with status migrainosus, not intractable (G43.001) Active confirmed Migraine withou t aura (95342167) Problem Encounter for screening for endocrine disorder (Z13.29) Active confirmed Endocrine/metab ol ic screening (343956437) Problem Watery eyes (H04.203) Active confirmed 945755029299375 Problem Episodic migraine (G43.909) Active confirmed 457252618052791 Problem Generalized arthritis (M19.90) Active confirmed 188005992 Problem Glaucoma screening (Z13.5) Active confirmed 031021465 VITAL SIGNS Heart Rate 64 /min 09/17/2024 Oximetry 97 % 09/17/2024 Blood pressure diastolic 88 mm Hg 09/17/2024 Height 58 in 09/17/2024 Blood pressure systolic 162 mm Hg 09/17/2024 Weight 132 lbs 09/17/2024 BMI 27.59 kg/m2 09/17/2024 Encounters Encounter Location Date Provider Diagnosis [place] [address] [address] 11/28/2023 EWA BYRNE General medical exam Z00.00 ; Constipation K59.00 ; Hyperthyroidism E05.90 and Watery eyes H04.203 [place] [address] 03/05/2024 EWA BYRNE Hyperthyroidism E05. 90 ; Headache, unspecified R51.9 ; Encounter for general medical examination Z00.00 ; Gastro-esophageal reflux disease without esophagitis K21.9 and Thyrotoxicosis with diffuse goiter without thyrotoxic crisis or storm E05.00 [facility] [address] 06/11/2024 EWA BYRNE Hyperthyroidism E05. 90 ; Dizziness R42 ; Headache, unspecified R51.9 ; Gastro-esophageal reflux disease without esophagitis K21.9 and Thyrotoxicosis with diffuse goiter without thyrotoxic crisis or storm E05.00 [place] [address] 09/17/2024 NICKOLAS ADKINS Episodic migraine G43.909 ; Essential hypertension I10 ; Generalized arthritis M19.90 and Acute constipation K59.00 [address] [place] [address] 11/28/2023 TALROMARIO BYRNE [address] [place] [address] 11/28/2023 EWA BYRNE [address] [place] [address] 05/22/[address] [place] [address] 06/11/[address] [place] [address] 06/12/2024 EWA BYRNE [facility] [address] [place] [address] 08/16/[address] [place] [address] 08/23/2024 EWA BYRNE ASSESSMENTS Encounter Date Diagnosis Assessment Notes Treatment Notes Treatment Clinical Notes Section Notes 09/17/2024 Essential hypertension (ICD-10 - I10) 84-year-old female with history of episodic migraine and hypertension who presents to the office today for routine follow-up. Medications, medical history, allergies, surgical history, hospitalizations, and social history reviewed. Cardiopulmonary abdominal exam unremarkable. She will follow-up in office in approximately 3 to 4 months for physical exam with labs. # Episodic migraine: Patient follows with pain specialist Dr. Ritchie for migraine management. Has been on amitriptyline 25 mg once daily for the past 5 to 6 months. Reports side effects at this time including breakthrough headaches and musculoskeletal pain. Per communication with pain specialist recommending transition to nortriptyline or Topamax for migraine prevention. At this time will initiate Topamax 25 mg 1 tablet at nighttime. If patient tolerates medication after 1 week can then increase to 2 tablets daily. Prior to beginning Topamax advised to taper off of amitriptyline. Discussed with the patient she will takea half tablet daily for 1 week before discontinuing and beginning topiramate. Discussed proper use of topiramate and expected side effect profile including but not limited to dizziness, low appetite, and somnolence. Will continue to monitor effect on headaches. # Hypertension: Blood pressure elevated today 162/88. Without chest pain, shortness of breath, diaphoresis, or dyspnea on exertion. Reports that she did not take amlodipine this morning. Does periodically check her blood pressure at home. Continue amlodipine 5 mg 1 tablet daily. Discussed red flag signs hypertension including but not limited to headache, blurry vision, chest pain, difficulty breathing, dizziness, or weakness. Will continue to monitor. # Constipation: Reports can go 5 to 10 days without bowel movement. When constipated has associated lower abdominal discomfort. Discussed importance of increasing hydration as well as increasing dietary fiber and physical activity to improve bowel patterns. Will prescribe as needed medications for constipation including senna 8.6 mg which is a stimulant laxative. Advised to take once daily as needed. Will also prescribe docusate sodium 100 mg 1 capsule as needed for constipation, discussed this medication and stool softener. Will continue to monitor. # Wrist pain: Reports intermittent pain in right wrist. 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 Continue acetaminophen 500 mg 1 tablet as needed every 6 hours for pain. Will continue to monitor. All questions have been answered to patient's satisfaction. Patient verbalized understanding of diagnosis and treatments explained. Advised to call sooner prior to next visit it any questions/concerns arise. Case discussed with collaborating physician Lela Byrne who reviewed the assessment and plan. Chart, medications, labs, vital signs reviewed. Dictation was accomplished with the use of [employer] voice recognition software, which is prone to medical misidentifications and grammatical errors. This are unintentional and the practitioner does try to identify and correct these, but some could still be present. Please do not hesitate to contact practitioner for clarification. 09/17/2024 Episodic migraine (ICD-10 - G43.909) 84-year-old female with history of episodic migraine and hypertension who presents to the office today for routine follow-up. Medications, medical history, allergies, surgical history, hospitalizations, and social history reviewed. Cardiopulmonary abdominal exam unremarkable. She will follow-up in office in approximately 3 to 4 months for physical exam with labs. # Episodic migraine: Patient follows with pain specialist Dr. Ritchie for migraine management. Has been on amitriptyline 25 mg once daily for the past 5 to 6 months. Reports side effects at this time including breakthrough headaches and musculoskeletal pain. Per communication with pain specialist recommending transition to nortriptyline or Topamax for migraine prevention. At this time will initiate Topamax 25 mg 1 tablet at nighttime. If patient tolerates medication after 1 week can then increase to 2 tablets daily. Prior to beginning Topamax advised to taper off of amitriptyline. Discussed with the patient she will takea half tablet daily for 1 week before discontinuing and beginning topiramate. Discussed proper use of topiramate and expected side effect profile including but not limited to dizziness, low appetite, and somnolence. Will continue to monitor effect on headaches. # Hypertension: Blood pressure elevated today 162/88. Without chest pain, shortness of breath, diaphoresis, or dyspnea on exertion. Reports that she did not take amlodipine this morning. Does periodically check her blood pressure at home. Continue amlodipine 5 mg 1 tablet daily. Discussed red flag signs hypertension including but not limited to headache, blurry vision, chest pain, difficulty breathing, dizziness, or weakness. Will continue to monitor. # Constipation: Reports can go 5 to 10 days without bowel movement. When constipated has associated lower abdominal discomfort. Discussed importance of increasing hydration as well as increasing dietary fiber and physical activity to improve bowel patterns. Will prescribe as needed medications for constipation including senna 8.6 mg which is a stimulant laxative. Advised to take once daily as needed. Will also prescribe docusate sodium 100 mg 1 capsule as needed for constipation, discussed this medication and stool softener. Will continue to monitor. # Wrist pain: Reports intermittent pain in right wrist. 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 Continue acetaminophen 500 mg 1 tablet as needed every 6 hours for pain. Will continue to monitor. All questions have been answered to patient's satisfaction. Patient verbalized understanding of diagnosis and treatments explained. Advised to call sooner prior to next visit it any questions/concerns arise. Case discussed with collaborating physician Lela Byrne who reviewed the assessment and plan. Chart, medications, labs, vital signs reviewed. Dictation was accomplished with the use of [employer] voice recognition software, which is prone to medical misidentifications and grammatical errors. This are unintentional and the practitioner does try to identify and correct these, but some could still be present. Please do not hesitate to contact practitioner for clarification. 06/11/2024 Dizziness (ICD-10 - R42) #Dizziness: Pt recently went to the ED for dizziness and a fall. She denies dizziness today. Workup at ED was negative. #Hyperthyroidism: Pt prescribed methimazole and has been taking it daily as directed. Reports no symptoms of hyperthyroidism such as anxiety, chest pain, or palpitations. Pt did not complete labs prior to her appointment today. Will check on labs taken in ED to determine best course for continued treatment of hyperthyroidism. #Headache: Pt has a history of recurrent migraine headaches. She was prescribed Ufqtqryrui-UYII-Vkmg eine, with some relief. However, she does not want to pickle maker prescription due to expense. Her daughter was provided with education o [employer] website, and a coupon for her medication was sent via text message. Her daughter was instructed to ask the pharmacist about [employer] to receive discounts for Leannir's other medications. She will also be prescribed amitriptyline 25 mg to be taken in the evenings so that her migraines do not disrupt her sleep. She will f/u 09/17/24 06/11/2024 Hyperthyroidism (ICD-10 - E05.90) #Dizziness: Pt recently went to the ED for dizziness and a fall. She denies dizziness today. Workup at ED was negative. #Hyperthyroidism: Pt prescribed methimazole and has been taking it daily as directed. Reports no symptoms of hyperthyroidism such as anxiety, chest pain, or palpitations. Pt did not complete labs prior to her appointment today. Will check on labs taken in ED to determine best course for continued treatment of hyperthyroidism. #Headache: Pt has a history of recurrent migraine headaches. She was prescribed Dnpifhstxp-UYLT-Sryq eine, with some relief. However, she does not want to pickle maker prescription due to expense. Her daughter was provided with education o [employer] website, and a coupon for her medication was sent via text message. Her daughter was instructed to ask the pharmacist about [employer] [facility] to receive discounts for Leannir's other medications. She will also be prescribed amitriptyline 25 mg to be taken in the evenings so that her migraines do not disrupt her sleep. She will f/u 09/17/24 03/05/2024 Hyperthyroidism (ICD-10 - E05.90) #Hyperthyroidism: Pt prescribed methimazole but has not taken for some time. Reports no symptoms of hyperthyroidism such as anxiety, chest pain, or palpitations. Pt has not completed labs since last year. Pt may have labs done at [facility]. Will look to see if can gain access to it. If not, will reach out to pt to complete lab work. Depending on labs will either prescribe or discontinue methimazole. #Headache: Pt has a history of recurrent headaches. She was prescribed Efsdwiebdr-LGOA-Gyjg eine, with some relief. However, she has since run out. Will send out the prescription again. 11/28/2023 General medical exam (ICD-10 - Z00.00) Alejandra is an 83 year old female with a past medical history significant for HLD, anxiety, hyperthyroidism, chronic constipation, HTN, and migraine who presents for routine follow-up. Plan by problem as follows. 1. She shares constipation that is chronic in nature. Her daughter organizes her medications and she has run out of medication. Last BM was 4-5 days ago. Physical exam reassuring with present bowel sounds in all four quadrants, without abdominal pain. Plan to start Senokot. Encouraged patient to hydrate and eat plenty of vegetables/fiber. 2. Back pain: Likely due to degenerative changes of the spine and weak core strength associated with aging. Physical exam is reassuring without deformity, point tenderness. Patient has been managing with heat and ibuprofen as needed. Last bloodwork reveals normal kidney function. Patient shares that the back pain is improving. Continue to treat symptomatically. 3. Hyperthyroidism: Patient does not present with routine bloodwork to review. Clinically, she is euthyroid on exam. Plan to continue methimazole and propanolol for hyperthyroidism. She will follow up in 3 months with routine blood work to review. 4. Eye watering: Alejandra shares watering eyes that are bothering her. She is requesting eye drops. I recommend eye exam with Dr. Lam to rule out more 5. Preventative: Patient is up to date on immunizations. Plan to follow up in 3 months with repeat bloodwork for review. 03/05/2024 Headache, unspecified (ICD-10 - R51.9) #Hyperthyroidism: Pt prescribed methimazole but has not taken for some time. Reports no symptoms of hyperthyroidism such as anxiety, chest pain, or palpitations. Pt has not completed labs since last year. Pt may have labs done at [facility]. Will look to see if can gain access to it. If not, will reach out to pt to complete lab work. Depending on labs will either prescribe or discontinue methimazole. #Headache: Pt has a history of recurrent headaches. She was prescribed Igymegsfoo-XORU-Gycm eine, with some relief. However, she has since run out. Will send out the prescription again. 11/28/2023 Constipation (ICD-10 - K59.00) Alejandra is an 83 year old female with a past medical history significant for HLD, anxiety, hyperthyroidism, chronic constipation, HTN, and migraine who presents for routine follow-up. Plan by problem as follows. 1. She shares constipation that is chronic in nature. Her daughter organizes her medications and she has run out of medication. Last BM was 4-5 days ago. Physical exam reassuring with present bowel sounds in all four quadrants, without abdominal pain. Plan to start Senokot. Encouraged patient to hydrate and eat plenty of vegetables/fiber. 2. Back pain: Likely due to degenerative changes of the spine and weak core strength associated with aging. Physical exam is reassuring without deformity, point tenderness. Patient has been managing with heat and ibuprofen as needed. Last bloodwork reveals normal kidney function. Patient shares that the back pain is improving. Continue to treat symptomatically. 3. Hyperthyroidism: Patient does not present with routine bloodwork to review. Clinically, she is euthyroid on exam. Plan to continue methimazole and propanolol for hyperthyroidism. She will follow up in 3 months with routine blood work to review. 4. Eye watering: Alejandra shares watering eyes that are bothering her. She is requesting eye drops. I recommend eye exam with Dr. Lam to rule out more 5. Preventative: Patient is up to date on immunizations. Plan to follow up in 3 months with repeat bloodwork for review. 03/05/2024 Encounter for general medical examination (ICD-10 - Z00.00) #Hyperthyroidism: Pt prescribed methimazole but has not taken for some time. Reports no symptoms of hyperthyroidism such as anxiety, chest pain, or palpitations. Pt has not completed labs since last year. Pt may have labs done at [facility]. Will look to see if can gain access to it. If not, will reach out to pt to complete lab work. Depending on labs will either prescribe or discontinue methimazole. #Headache: Pt has a history of recurrent headaches. She was prescribed Rdkjjptksj-LEMK-Qynk eine, with some relief. However, she has since run out. Will send out the prescription again. 11/28/2023 Hyperthyroidism (ICD-10 - E05.90) Alejandra is an 83 year old female with a past medical history significant for HLD, anxiety, hyperthyroidism, chronic constipation, HTN, and migraine who presents for routine follow-up. Plan by problem as follows. 1. She shares constipation that is chronic in nature. Her daughter organizes her medications and she has run out of medication. Last BM was 4-5 days ago. Physical exam reassuring with present bowel sounds in all four quadrants, without abdominal pain. Plan to start Senokot. Encouraged patient to hydrate and eat plenty of vegetables/fiber. 2. Back pain: Likely due to degenerative changes of the spine and weak core strength associated with aging. Physical exam is reassuring without deformity, point tenderness. Patient has been managing with heat and ibuprofen as needed. Last bloodwork reveals normal kidney function. Patient shares that the back pain is improving. Continue to treat symptomatically. 3. Hyperthyroidism: Patient does not present with routine bloodwork to review. Clinically, she is euthyroid on exam. Plan to continue methimazole and propanolol for hyperthyroidism. She will follow up in 3 months with routine blood work to review. 4. Eye watering: Alejandra shares watering eyes that are bothering her. She is requesting eye drops. I recommend eye exam with Dr. Lam to rule out more 5. Preventative: Patient is up to date on immunizations. Plan to follow up in 3 months with repeat bloodwork for review. 06/11/2024 Headache, unspecified (ICD-10 - R51.9) #Dizziness: Pt recently went to the ED for dizziness and a fall. She denies dizziness today. Workup at ED was negative. #Hyperthyroidism: Pt prescribed methimazole and has been taking it daily as directed. Reports no symptoms of hyperthyroidism such as anxiety, chest pain, or palpitations. Pt did not complete labs prior to her appointment today. Will check on labs taken in ED to determine best course for continued treatment of hyperthyroidism. #Headache: Pt has a history of recurrent migraine headaches. She was prescribed Lwrelauerj-LANA-Yuac eine, with some relief. However, she does not want to pickle maker prescription due to expense. Her daughter was provided with education [employer] website, and a coupon for her medication was sent via text message. Her daughter was instructed to ask the pharmacist about [employer] to receive discounts for Alejandra's other medications. She will also be prescribed amitriptyline 25 mg to be taken in the evenings so that her migraines do not disrupt her sleep. She will f/u 09/17/24 09/17/2024 Generalized arthritis (ICD-10 - M19.90) 84-year-old female with history of episodic migraine and hypertension who presents to the office today for routine follow-up. Medications, medical history, allergies, surgical history, hospitalizations, and social history reviewed. Cardiopulmonary abdominal exam unremarkable. She will follow-up in office in approximately 3 to 4 months for physical exam with labs. # Episodic migraine: Patient follows with pain specialist Dr. Ritchie for migraine management. Has been on amitriptyline 25 mg once daily for the past 5 to 6 months. Reports side effects at this time including breakthrough headaches and musculoskeletal pain. Per communication with pain specialist recommending transition to nortriptyline or Topamax for migraine prevention. At this time will initiate Topamax 25 mg 1 tablet at nighttime. If patient tolerates medication after 1 week can then increase to 2 tablets daily. Prior to beginning Topamax advised to taper off of amitriptyline. Discussed with the patient she will takea half tablet daily for 1 week before discontinuing and beginning topiramate. Discussed proper use of topiramate and expected side effect profile including but not limited to dizziness, low appetite, and somnolence. Will continue to monitor effect on headaches. # Hypertension: Blood pressure elevated today 162/88. Without chest pain, shortness of breath, diaphoresis, or dyspnea on exertion. Reports that she did not take amlodipine this morning. Does periodically check her blood pressure at home. Continue amlodipine 5 mg 1 tablet daily. Discussed red flag signs hypertension including but not limited to headache, blurry vision, chest pain, difficulty breathing, dizziness, or weakness. Will continue to monitor. # Constipation: Reports can go 5 to 10 days without bowel movement. When constipated has associated lower abdominal discomfort. Discussed importance of increasing hydration as well as increasing dietary fiber and physical activity to improve bowel patterns. Will prescribe as needed medications for constipation including senna 8.6 mg which is a stimulant laxative. Advised to take once daily as needed. Will also prescribe docusate sodium 100 mg 1 capsule as needed for constipation, discussed this medication and stool softener. Will continue to monitor. # Wrist pain: Reports intermittent pain in right wrist. 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 Continue acetaminophen 500 mg 1 tablet as needed every 6 hours for pain. Will continue to monitor. All questions have been answered to patient's satisfaction. Patient verbalized understanding of diagnosis and treatments explained. Advised to call sooner prior to next visit it any questions/concerns arise. Case discussed with collaborating physician Lela Byrne who reviewed the assessment and plan. Chart, medications, labs, vital signs reviewed. Dictation was accomplished with the use of [employer] voice recognition software, which is prone to medical misidentifications and grammatical errors. This are unintentional and the practitioner does try to identify and correct these, but some could still be present. Please do not hesitate to contact practitioner for clarification. 09/17/2024 Acute constipation (ICD-10 - K59.00) 84-year-old female with history of episodic migraine and hypertension who presents to the office today for routine follow-up. Medications, medical history, allergies, surgical history, hospitalizations, and social history reviewed. Cardiopulmonary abdominal exam unremarkable. She will follow-up in office in approximately 3 to 4 months for physical exam with labs. # Episodic migraine: Patient follows with pain specialist Dr. Ritchie for migraine management. Has been on amitriptyline 25 mg once daily for the past 5 to 6 months. Reports side effects at this time including breakthrough headaches and musculoskeletal pain. Per communication with pain specialist recommending transition to nortriptyline or Topamax for migraine prevention. At this time will initiate Topamax 25 mg 1 tablet at nighttime. If patient tolerates medication after 1 week can then increase to 2 tablets daily. Prior to beginning Topamax advised to taper off of amitriptyline. Discussed with the patient she will takea half tablet daily for 1 week before discontinuing and beginning topiramate. Discussed proper use of topiramate and expected side effect profile including but not limited to dizziness, low appetite, and somnolence. Will continue to monitor effect on headaches. # Hypertension: Blood pressure elevated today 162/88. Without chest pain, shortness of breath, diaphoresis, or dyspnea on exertion. Reports that she did not take amlodipine this morning. Does periodically check her blood pressure at home. Continue amlodipine 5 mg 1 tablet daily. Discussed red flag signs hypertension including but not limited to headache, blurry vision, chest pain, difficulty breathing, dizziness, or weakness. Will continue to monitor. # Constipation: Reports can go 5 to 10 days without bowel movement. When constipated has associated lower abdominal discomfort. Discussed importance of increasing hydration as well as increasing dietary fiber and physical activity to improve bowel patterns. Will prescribe as needed medications for constipation including senna 8.6 mg which is a stimulant laxative. Advised to take once daily as needed. Will also prescribe docusate sodium 100 mg 1 capsule as needed for constipation, discussed this medication and stool softener. Will continue to monitor. # Wrist pain: Reports intermittent pain in right wrist. 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 Continue acetaminophen 500 mg 1 tablet as needed every 6 hours for pain. Will continue to monitor. All questions have been answered to patient's satisfaction. Patient verbalized understanding of diagnosis and treatments explained. Advised to call sooner prior to next visit it any questions/concerns arise. Case discussed with collaborating physician Lela Byrne who reviewed the assessment and plan. Chart, medications, labs, vital signs reviewed. Dictation was accomplished with the use of [employer] voice recognition software, which is prone to medical misidentifications and grammatical errors. This are unintentional and the practitioner does try to identify and correct these, but some could still be present. Please do not hesitate to contact practitioner for clarification. 11/28/2023 Watery eyes (ICD-10 - H04.203) Alejandra is an 83 year old female with a past medical history significant for HLD, anxiety, hyperthyroidism, chronic constipation, HTN, and migraine who presents for routine follow-up. Plan by problem as follows. 1. She shares constipation that is chronic in nature. Her daughter organizes her medications and she has run out of medication. Last BM was 4-5 days ago. Physical exam reassuring with present bowel sounds in all four quadrants, without abdominal pain. Plan to start Senokot. Encouraged patient to hydrate and eat plenty of vegetables/fiber. 2. Back pain: Likely due to degenerative changes of the spine and weak core strength associated with aging. Physical exam is reassuring without deformity, point tenderness. Patient has been managing with heat and ibuprofen as needed. Last bloodwork reveals normal kidney function. Patient shares that the back pain is improving. Continue to treat symptomatically. 3. Hyperthyroidism: Patient does not present with routine bloodwork to review. Clinically, she is euthyroid on exam. Plan to continue methimazole and propanolol for hyperthyroidism. She will follow up in 3 months with routine blood work to review. 4. Eye watering: Alejandra shares watering eyes that are bothering her. She is requesting eye drops. I recommend eye exam with Dr. Lam to rule out more 5. Preventative: Patient is up to date on immunizations. Plan to follow up in 3 months with repeat bloodwork for review. 06/11/2024 Gastro-esophageal reflux disease without esophagitis (ICD-10 - K21.9) #Dizziness: Pt recently went to the ED for dizziness and a fall. She denies dizziness today. Workup at ED was negative. #Hyperthyroidism: Pt prescribed methimazole and has been taking it daily as directed. Reports no symptoms of hyperthyroidism such as anxiety, chest pain, or palpitations. Pt did not complete labs prior to her appointment today. Will check on labs taken in ED to determine best course for continued treatment of hyperthyroidism. #Headache: Pt has a history of recurrent migraine headaches. She was prescribed Eaofmzrrdz-[id number]-Zdev eine, with some relief. However, she does not want to pickle maker prescription due to expense. Her daughter was provided with education o [employer] [facility] website, and a coupon for her medication was sent via text message. Her daughter was instructed to ask the pharmacist about [facility] to receive discounts for Alejandra's other medications. She will also be prescribed amitriptyline 25 mg to be taken in the evenings so that her migraines do not disrupt her sleep. She will f/u 09/17/24 03/05/2024 Gastro-esophageal reflux disease without esophagitis (ICD-10 - K21.9) #Hyperthyroidism: Pt prescribed methimazole but has not taken for some time. Reports no symptoms of hyperthyroidism such as anxiety, chest pain, or palpitations. Pt has not completed labs since last year. Pt may have labs done at [facility]. Will look to see if can gain access to it. If not, will reach out to pt to complete lab work. Depending on labs will either prescribe or discontinue methimazole. #Headache: Pt has a history of recurrent headaches. She was prescribed Vcemfuauqw-[id number] eine, with some relief. However, she has since run out. Will send out the prescription again. 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 Reports no symptoms of hyperthyroidism such as anxiety, chest pain, or palpitations. Pt has not completed labs since last year. Pt may have labs done at [facility]. Will look to see if can gain access to it. If not, will reach out to pt to complete lab work. Depending on labs will either prescribe or discontinue methimazole. #Headache: Pt has a history of recurrent headaches. She was prescribed Cfvvortxkh-FOCW-Luej eine, with some relief. However, she has since run out. Will send out the prescription again. 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 She denies dizziness today. Workup at ED was negative. #Hyperthyroidism: Pt prescribed methimazole and has been taking it daily as directed. Reports no symptoms of hyperthyroidism such as anxiety, chest pain, or palpitations. Pt did not complete labs prior to her appointment today. Will check on labs taken in ED to determine best course for continued treatment of hyperthyroidism. #Headache: Pt has a history of recurrent migraine headaches. She was prescribed Eqmiuydzic-XGDS-Hydd eine, with some relief. However, she does not want to pickle maker prescription due to expense. Her daughter was provided with education o [facility] website, and a coupon for her medication was sent via text message. Her daughter was instructed to ask the pharmacist about [facility] to receive discounts for Alejandra's other medications. She will also be prescribed amitriptyline 25 mg to be taken in the evenings so that her migraines do not disrupt her sleep. She will f/u 09/17/24 PLAN OF TREATMENT Pending Test Test Name Order Date Thyroid Peroxidase (TPO) Ab 10/18/2022 TSH+Free T4 11/07/2018 Lipid Panel 11/07/2018 Comp. Metabolic Panel (14) 11/07/2018 CBC 11/07/2018 25OH VITAMIN D 10/20/2021 BASIC METABOLIC PANEL 06/17/2021 CBC (COMPLETE BLOOD COUNT) 02/07/2023 CBC (COMPLETE BLOOD COUNT) 10/20/2021 CBC (COMPLETE BLOOD COUNT) 03/25/2019 CBC (COMPLETE BLOOD COUNT) 02/02/2021 CBC (COMPLETE BLOOD COUNT) 06/15/2020 CBC (COMPLETE BLOOD COUNT) 04/06/2018 CBC (COMPLETE BLOOD COUNT) 01/04/2018 CBC (COMPLETE BLOOD COUNT) 11/02/2020 COMPREHENSIVE METABOLIC PANEL 11/02/2020 COMPREHENSIVE METABOLIC PANEL 01/04/2018 COMPREHENSIVE METABOLIC PANEL 04/06/2018 COMPREHENSIVE METABOLIC PANEL 02/02/2021 COMPREHENSIVE METABOLIC PANEL 06/15/2020 COMPREHENSIVE METABOLIC PANEL 03/25/2019 COMPREHENSIVE METABOLIC PANEL 10/20/2021 COMPREHENSIVE METABOLIC PANEL 02/07/2023 HEMOGLOBIN A1C 06/15/2020 HEMOGLOBIN A1C 02/02/2021 HEMOGLOBIN A1C 11/02/2020 LIPID PANEL 11/02/2020 LIPID PANEL 06/15/2020 LIPID PANEL 04/06/2018 LIPID PANEL 01/04/2018 LIPID PANEL 02/07/2023 LIPID PANEL 10/20/2021 T3, FREE 06/17/2021 T3, FREE 10/18/2022 T3, FREE 11/02/2020 T3, TOTAL 11/02/2020 T4, FREE 06/15/2020 T4, TOTAL 10/20/2021 T4, TOTAL 10/18/2022 T4, TOTAL 06/17/2021 THYROTROPIN RECEPTOR AB 10/18/2022 TSH 10/18/2022 TSH 06/17/2021 TSH 10/20/2021 TSH 02/07/2023 TSH 06/15/2020 TSH 11/02/2020 TSH WITH REFLEX TO FT4 11/02/2020 TSH WITH REFLEX TO FT4 03/25/2019 URINALYSIS, COMPLETE 11/02/2020 URINALYSIS, COMPLETE 01/04/2018 URINALYSIS, COMPLETE 06/15/2020 Thyroglobulin Antibody 10/18/2022 FREE T4 02/07/2023 LIPID PANEL, STANDARD 09/17/2024 COMPREHENSIVE METABOLIC PANEL 09/17/2024 COMPREHENSIVE METABOLIC PANEL 07/28/2023 CBC (INCLUDES DIFF/PLT) 07/28/2023 CBC (INCLUDES DIFF/PLT) 09/17/2024 URINALYSIS, COMPLETE 09/17/2024 TSH 09/17/2024 VITAMIN D,25-OH,TOTAL,IA 09/17/2024 COMPLETE URINALYSIS 02/07/2023 COMPLETE URINALYSIS 10/20/2021 COMPLETE URINALYSIS 02/02/2021 Future Test Test Name Order Date 25OH VITAMIN D 11/21/2023 CBC (COMPLETE BLOOD COUNT) WITH DIFF 08/2024 COMPREHENSIVE METABOLIC PANEL 11/21/2023 LIPID PANEL 11/21/2023 T4, TOTAL 11/21/2023 TSH 11/21/2023 URINALYSIS W/REFLEX CULTURE 11/21/2023 Next Appt Details Provider Name:NICKOLAS ADKINS , 01/15/2025 11:00:00 AM, [address] [address] [facility] [address], [address], [place], [address], Insurance Providers Payer Name Payer Address Payer Phone Subscriber Number Group Number Insured Name Patient Relationship to Insured Coverage Start Date Coverage End Date Medicare Part B [id number] [address] [place] [id number] Alejadnra Saucedo Self - patient is the insured [employer] [place] [address] [place] [phone] [id number] Alejandra Saucedo Self - patient is the insured MEDICAL (GENERAL) HISTORY Medical History History ICD Code Hypothyroidism anemia hypokalemia osteoporosis vitamin D deficiency headache migraine headaches Surgical History Surgery Date(Month/Year) pilonidal cyst excision Hospitalization History Reason Date(Month/Year) [facility] for dizziness 07/28/23
--- OUTSIDE RECORDS SUMMARY | 2024-10-30 21:43 | XMS_ITS ---
Author Organization [facility] Address [address] [place] [address] Care Team Providers Care Mold Forms Builder Name Role Phone EWA POWERS Primary Care Provider [phone] REASON FOR VISIT CCM Encounters Encounter Location Date Provider Diagnosis [address] [place] [address] 08/23/2024 [facility]WA POWERS PLAN OF TREATMENT Next Appt Details Provider Name:NICKOLAS ADKINS , 01/15/2025 11:00:00 AM, [address], [address], [place], [address], Progress Notes * Claude BRUCEgDOB:1940 ( 84 yo F)Acc No.[id number]:08/23/2024 Patient:??Alejandra BRUCE :1940?Age:84 Y?Sex:Fe male Address:[address], [address] , [place] [address] * true * Date:??
--- OUTSIDE RECORDS SUMMARY | 2024-10-30 21:43 | XMS_ITS ---
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 Phone EWA BYRNE Primary Care Provider NICKOLAS ADKINS Unavailable [phone] ALLERGIES No Known Allergies REASON FOR VISIT pt here for follow up MEDICATIONS Medication SIG (Take, Route, Frequency, Duration) Notes Start Date End Date Status Topamax 25 MG 1 tablet at night Orally Once a day for 90 days 09/17/2024 Active Senna 8.6 MG 1 tablet at bedtime as needed for constipation Orally Once a day for 15 days 09/17/2024 Active Propranolol HCl 10 MG 1 tablet [...] MOUTH EVERY DAY for 90 day(s) Active Amitriptyline HCl 25 MG 1 tablet at bedt guilherme Orally Once a day for 90 days 06/11/2024 Active Jgveuxsxjs-ZVCY-Cwpjipcp 50-325-40 MG TAKE 1 TABLET BY MOUTH EVERY 12 HOURS NEEDED for 30 Active methIMAzole 5 MG TAKE 1 TABLET BY BERNY TH EVERY DAY WITH FOOD for 90 Active SOCIAL HISTORY Tobacco Use: Social History Observation Description Date Details (start date - stop date) Former Smoker NA - NA Sex Assigned At : Social History Observation Description Sex Assigned At Unknown Tobacco Use/Smoking Question Answer Notes Are you a former smoker PROBLEMS Problem Type ICD Code Onset Dates Problem Status W/U Status Risk SNOMED Code Notes Problem Episodic migraine (G43.909) Active confirmed 976115094519264 Problem Generalized arthritis (M19.90) Active confirmed 555330942 Problem Acute constipation (K59.00) Active confirmed 164909797 Problem Essential hypertension (I10) Active confirmed 44263277 VITAL SIGNS Heart Rate 64 /min 09/17/2024 Blood pressure systolic 162 mm Hg 09/17/19 25 Blood pressure diastolic 88 mm Hg 025 Weight 132 lbs 09/17/2024 BMI 27.59 kg/m2 09/17/2024 Height 58 in 09/17/2024 Oximetry 97 % 09/17/2024 Encounters Encounter Location Date Provider Diagnosis [facility] [address] [facility] [address] [place] [address] 09/17/2024 NICKOLAS ADKINS Episodic migraine G43.909 ; Essential hypertension I10 ; Generalized arthritis M19.90 and Acute constipation K59.00 ASSESSMENTS Encounter Date Diagnosis Assessment Notes Treatment Notes Treatment Clinical Notes Section Notes 09/17/2024 Episodic migraine (ICD-10 - G43.909) 84-year-old [...] Dictation was accomplished with the use of [employer] voice recognition software, which is prone to medical misidentifications and grammatical errors. This are unintentional and the practitioner does try to identify and correct these, but some could still be present. Please do not hesitate to contact practitioner for clarification. 09/17/2024 Essential hypertension (ICD-10 - I10) 84-year-old [...] Dictation was accomplished with the use of [employer] voice recognition software, which is prone to medical misidentifications and grammatical errors. This are unintentional and the practitioner does try to identify and correct these, but some could still be present. Please do not hesitate to contact practitioner for clarification. 09/17/2024 Generalized arthritis (ICD-10 - M19.90) 84-year-old [...] Dictation was accomplished with the use of [employer] voice recognition software, which is prone to [...] Dictation was accomplished with the use of [employer] voice recognition software, which is prone to medical misidentifications and grammatical errors. This are unintentional and the practitioner does try to identify and correct these, but some could still be present. Please do not hesitate to contact practitioner for clarification. PLAN OF TREATMENT Medication Medication Name Sig Start Date Stop Date Notes Topamax 25 MG 1 tablet at night Or ally Once a day for 90 days 09/17/2024 Senna 8.6 MG 1 tablet at bedtime as needed for constipation Orally Once a day for 15 days 09/17/2024 Docusate Sodium 100 MG 1 capsule as need ed for constipation Orally Once a day for 15 days 09/17/2024 Acetaminophen 500 MG 1 tablet as needed Orally every 6 hrs for 30 days 09/17/2024 Pending Test Test Name Order Date LIPID PANEL, STANDARD 09/17/2024 COMPREHENSIVE METABOLIC PANEL 09/17/2024 CBC (INCLUDES DIFF/PLT) 09/17/2024 URINALYSIS, COMPLETE 09/17/2024 TSH 09/17/2024 VITAMIN D,25-OH,TOTAL,IA 09/17/2024 Next Appt Details Provider Name:NICKOLAS ADKINS , 01/15/2025 11:00:00 AM, [address] [place] [address] [address], [place], [address], Progress Notes * Claude BRUCEgDOB:1940 ( 84 yo F)Acc No.[id number]:09/17/2024 Progress Notes Patient:??JANIS Claudenir Provider:??NICKOLAS ADKINS :1940?Age:84 Y?Sex:Fe male Date:09/17/2024 Address:[address] [place] [address] [facility] , [place], [id number] Pcp:EWA BYRNE Subjective: * Chief Complaints: * ?1. Pt here for follow up. * HPI: ?Constitutional:? Alejandra is an 84-year-old female with history of episodic migraine and hypertension who presents the office today for routine follow-up. Patient reports she feels well today. Endorsing a mild headache, feels as though she is getting over a cold however reports no fevers, chills, chest pain, difficulty breathing, or change in eating patterns. Takes Tylenol as needed for headache which she finds helpful. Also was prescribed amitriptyline through pain management for migraine prophylaxis however admits that this medication has been giving her headaches and muscle pain. Per encounter with specialist advised to trial transitioning to nortriptyline or Topamax. ?Patient today also reporting increased constipation. Admits that can go 5 to 10 days without producing a bowel movement. Associated abdominal bloating at times. Does not use any bowel regimen at this time. Reports good water hydration. ?Admits to elevation in blood pressure today as she did not take her amlodipine this morning. However without chest pain, shortness of breath, diaphoresis, or dyspnea on exertion. No other concerns at this time. * ROS:?Constitutional: + Headache. Patient denies any excessive fatigue with exercise, no weight loss, no fever, no night sweats, no changes in sleep. ???Eyes: No eye discharge, no itching, no redness, no vision changes. Advised the significance of regular eye exams to screen for glaucoma and other eye problems. ???Ear nose throat: No ear pain, No sore throat, no postnasal drip, no runny nose, no sneezing, no hearing changes ???Cardiovascular: No chest pain, no dyspnea on exertion, no PND, no orthopnea, no irregular pulse, no palpitations, no claudication, no diaphoresis, no claudication. ???Respiratory: No chronic cough, no hemoptysis, no sputum, no wheezing, no SOB, no pleuritic pain. ???GI: + Constipation. No diarrhea, no blood in the stools, no pain associated with eating, no indigestion, no difficulty swallowing, no appetite change. ???Genitourinary: No painful urination, no hesitancy, no blood in the urine, no incontinence, no frequency, no urgency, no abnormal discharge. ???Musculoskeletal: No back pain, no joint pain, no limitations to walking and running, no joint deformity, no joint stiffness, no muscle weakness ???Integumentary: No new skin rash. No new changes in skin moles, no pruritis, no color change. ???Neurological: No history of seizures, no memory loss, no language dysfunction, no inability to concentrate, no localized weakness, no sensation loss, no confusion, no dizziness, no tremor, no numbness, no tingling. ???Psychiatric: no anxiety, no depression, no suicidal thoughts, feels safe at home. ???Endocrine: No polyuria, no polyphagia, no polydipsia. No heat/cold intolerance, no excesss thirst. ???Hematological: No easy bruising or bleeding, no lymph node swelling. * Medical History:??Hypothyroi dism, Anemia, Hypokalemia, Osteoporosis, vitamin D deficiency, Headache, Migraine headaches. * Surgical History:??pilonidal cyst excision . * Hospitalization/Major Diagno stic Procedure:??ferdinand ed for dizziness 07/28/23. * Family History:??2 brother(s ) , 5 sister(s) . 2 son(s) , 3 daughter(s) . .?? * Social History:?Tobacco Use:??Tobacco Use/Smoking??Are you a??former smoker.?? * Medications:??Taking amLODIP ine Besylate 5 MG Tablet TAKE 1 TABLET BY MOUTH EVERY DAY , Taking Amitriptyline HCl 25 MG Tablet 1 tablet at bedtime Orally Once a day , Taking Hicxpllsem-TBAX-Vqaxkzvy 50-325-40 MG Tablet TAKE 1 TABLET BY MOUTH EVERY 12 HOURS NEEDED , Taking methIMAzole 5 MG Tablet TAKE 1 TABLET BY MOUTH EVERY DAY WITH FOOD , Not-Taking Propranolol HCl 10 MG Tablet 1 tablet Orally Once a day , Medication List reviewed and reconciled with the patient * Allergies:??N.K.D.A. Objective: * Vitals:??HR: 64 /min, BP: 16 2/88 mm Hg, Wt: 132 lbs, BMI: 27.59 Index, Ht: 58 in, Oxygen sat %: 97 %. * Physical Examination:?General: Age appropriate 84-year-old female, well appearing, no acute distress, speaking in full sentences without respiratory compromise. Well groomed, well developed. Alert, Interactive. ?Skin: Warm, dry and intact. ?HEENT: Normocephalic/atraumatic. ?Neck/Thyroid: Supple, with no lymphadenopathy. Full ROM. ?Lung: Clear to auscultation bilaterally, no wheezes, rales or rhonchi. No barrel chest. Equal chest rise and fall bilaterally. ?Cardiac: S1 and S2 appreciated. No murmurs/rubs or gallops. 2+ and equal radial pulses bilaterally. ?Abdomen: Soft, nontender, normoactive bowel sounds. No rebound/guarding. No CVA tenderness. No Masses. ?Extremities: Bilateral lower extremities with no edema or rubor. No evidence of varicose veins. Equal tone bilaterally. ?Neuro: CN II-XI grossly intact. Steady gait with ambulation observed. Symmetric reflexes. ?Psych: Stable mood and affect. Assessment: * Assessment: 1.??Episodic migraine - G43. 909 (Primary)??2.??Essential hypertension - I10??3.??Generalized arthritis - M19.90??4.??Acute constipation - K59.00?? 84-year-old female with hist ory of episodic migraine and hypertension who presents [...] Dictation was accomplished with the use of [employer] voice recognition software, which is prone to medical misidentifications and grammatical errors. This are unintentional and the practitioner does try to identify and correct these, but some could still be present. Please do not hesitate to contact practitioner for clarification. Plan: * Treatment: 2.??Generalized arthritis?? Start Acetaminophen Tablet, 500 MG, 1 tablet as needed, Orally, every 6 hrs, 30 days, 120 Tablet, Refills 0.? 3.??Acute constipation?? Refill Senna Tablet, 8.6 MG, 1 tablet at bedtime as needed for constipation, Orally, Once a day, 15 days, 15 Tablet, Refills 1;??Start Docusate Sodium Capsule, 100 MG, 1 capsule as needed for constipation, Orally, Once a day, 15 days, 15 Capsule, Refills 1.? * Labs:?? * ?Lab: VITAMIN D,25- OH,TOTAL,IA ?Lab: URINALYSIS, C OMPLETE ?Lab: COMPREHENSIVE METABOLIC PANEL ?Lab: CBC (INCLUDES DIFF/PLT) ?Lab: TSH ?Lab: LIPID PANEL, STANDARD * Images: Billing Information: * Visit Code:?? 47292 Office Visit, Est Pt., Level 4. * Procedure Codes:?? Care Plan Details* * Sign off status: Completed true * Provider:??NICKOLAS ADKINS Date:?? 025 History and Physical Notes * HPI (History of Present Illness) Category Sub-Category Detail Notes Category Not es Constitutional Leang is an 84-year-old female with history of episodic migraine and hypertension who presents the office today for routine follow-up. Patient reports she feels well today. Endorsing a mild headache, feels as though she is getting over a cold however reports no fevers, chills, chest pain, difficulty breathing, or change in eating patterns. Takes Tylenol as needed for headache which she finds helpful. Also was prescribed amitriptyline through pain management for migraine prophylaxis however admits that this medication has been giving her headaches and muscle pain. Per encounter with specialist advised to trial transitioning to nortriptyline or Topamax. Patient today also reporting increased constipation. Admits that can go 5 to 10 days without producing a bowel movement. Associated abdominal bloating at times. Does not use any bowel regimen at this time. Reports good water hydration. Admits to elevation in blood pressure today as she did not take her amlodipine this morning. However without chest pain, shortness of breath, diaphoresis, or dyspnea on exertion. No other concerns at this time. Physical Examination Category Sub-Category Detail Notes Section Note s General: Age appropriate 84-year-old female, well appearing, no acute distress, speaking in full sentences without respiratory compromise. Well groomed, well developed. Alert, Interactive. Skin: Warm, dry and intact. HEENT: Normocephalic/atraumatic. Neck/Thyroid: Supple, with no lymphadenopathy. Full ROM. Lung: Clear to auscultation bilaterally, no wheezes, rales or rhonchi. No barrel chest. Equal chest rise and fall bilaterally. Cardiac: S1 and S2 appreciated. No murmurs/rubs or gallops. 2+ and equal radial pulses bilaterally. Abdomen: Soft, nontender, normoactive bowel sounds. No rebound/guarding. No CVA tenderness. No Masses. Extremities: Bilateral lower extremities with no edema or rubor. No evidence of varicose veins. Equal tone bilaterally. Neuro: CN II-XI grossly intact. Steady gait with ambulation observed. Symmetric reflexes. Psych: Stable mood and affect
--- OUTSIDE RECORDS SUMMARY | 2024-10-30 21:43 | XMS_ITS ---
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 Phone EWA POWERS Primary Care Provider NICKOLAS ADKINS [phone] REASON FOR VISIT FYI to provider Encounters Encounter Location Date Provider Diagnosis [facility] [address] [place] [address] 08/16/2024 NICKOLAS ADKINS PLAN OF TREATMENT Next Appt Details Provider Name:NICKOLAS ADKINS , 01/15/2025 11:00:00 AM, [address] [facility], [address], [place], [address], Progress Notes * Carlos BRUCEOB:1940 ( 84 yo F)Acc No.[id number]:08/16/2024 Patient:??Alejandra BRUCE :1940?Age:84 Y?Sex:Fe male Address:[address] [facility] [address] [facility] [facility], [address] , [place] [address] * true * Date:??
[2024-10-30 22:32] LABS: MANUAL DIFF FLAG NO
[2024-10-30 22:34] LABS: Basophils Percent Auto 0.2 % (0-2); Hematocrit 37.4 % (37.0-47.0); Imm Gran Abs Auto 0.04 X10*3/uL (0.00-0.03); Imm Gran Pct Auto 0.4 % (0.0-0.4); Lymphocytes Absolute Auto 1.2 X10*3/uL (1.2-4.9); Lymphocytes Percent Auto 11.3 % (20-40); Mean Corpuscular HGB Conc 32.1 g/dl (31.0-35.0); Mean Corpuscular Hemoglobin 29.3 pg (27.0-33.0); Mean Corpuscular Volume 91.4 fL (80.0-98.0); Mean Platelet Volume 10.7 fL (9.4-12.3); Monocytes Absolute Auto 0.6 X10*3/uL (0.1-1.2); Neutrophils Absolute Auto 8.7 x10*3/uL (2.0-8.3); Neutrophils Percent Auto 82.1 % (45-73); Platelet Count 196 X10*3/uL (160-400); Red Blood Count 4.09 X10*6/uL (4.20-5.50); Red Cell Distribution Width 13.9 % (11.0-16.0); White Blood Count 10.6 X10*3/uL (4.8-10.8)
[2024-10-30 22:52] VITALS: BP 155/72; PULSE 71; RESP 16; O2SAT 100
[2024-10-30 22:55] LABS: Alanine Aminotransferase 16 U/L (0-31); Albumin Level 4.5 g/dL (3.5-5.0); Alkaline Phosphatase 58 U/L (39-117); Anion Gap 14 (12-20); Aspartate Amino Transferase 27 U/L (5-31); Bilirubin Total 0.5 mg/dL (0.0-1.0); Blood Urea Nitrogen 25 mg/dL (9-16); Calcium 9.5 mg/dL (8.4-10.2); Carbon Dioxide 24 mmol/L (22-29); Chloride 109 mmol/L (96-108); Estimated Glomerular Filt Rate > 60; Glucose Random 115 mg/dL (60-115); Lipase 38 U/L (8-78); Sodium 142 mmol/L (135-145); Total Protein 8.6 g/dL (6.5-8.0)
--- NOTE | 2024-10-30 22:57 | PC.NURSE ---
Use lanuage line to communicate with pt. pt was having diarrhea, got dizzy and lower her self to ground, denies fever or chills, symptoms started at 6:30pm. call [facility] at the bed side.
[2024-10-30 23:01] LABS: Troponin-I High Sensitivity < 2.7 ng/L (<3.5-17.0)
--- NOTE | 2024-10-30 23:24 | ED_ITS ---
HPI - Nausea/Vomiting/Diarrhea General Chief complaint: Fall Stated complaint: syncopal ep, ?fall Time Seen by Provider: 10/30/24 23:22 Source: patient and EMS Mode of arrival: EMS Limitations: language barrier (Irish speaking, iPad hourly sign language interpreter used) History of Present Illness ED Provider: Dr. Rafael Etienne HPI Narrative: 84-year-old female, Irish speaking only, history of hypertension, hypothyroidism, Graves disease presents emergency department for evaluation of diarrhea, lightheadedness, dizziness and fall. Information came from the nurse who did speak to the patient's daughter. The patient developed diarrhea at around 18:30 hours. Patient was feeling lightheaded and dizzy and went to the bathroom. After going to the bathroom her dizziness got worse and the daughter lowered her to the floor. The daughter was concerned that there was some blood in the patient's mouth but the patient did not strike her head or lose consciousness. The patient was complaining of abdominal pain but at this time she states that her pain is improved. Patient did have an episode of diarrhea here in the emergency department. The patient states that she was not traveled outside of the country. She was not been on antibiotics recently. The patient states that she does not have any blood in your mouth but she was chewing [place] and tobacco which is red. She states that she chews tobacco daily. Related Data Home Medications ?Medication ?Instructions ?Recorded ?Confirmed recldcjgck-omqhrpgdbrayo-qozqublm 1 tab PO Q12H PRN Headache 07/23/23 07/23/23 50 mg-325 mg-40 mg tablet methimazole 5 mg tablet 5 mg PO DAILY 07/23/23 propranolol 10 mg tablet 10 mg PO BID 07/23/23 07/23/23 Previous Rx's ?Medication ?Instructions ?Recorded amlodipine 5 mg tablet 5 mg PO BEDTIME #30 tabs 07/23/23 Allergies Allergy/AdvReac Type Severity Reaction Status Date / Time No Known Allergies Allergy Verified 10/30/24 21:36 Review of Systems 2 Review of Systems: Yes all other systems are reviewed and are negative [facility] Past Medical History Medical History Essential hypertension Graves disease Social History Social History Patient Tobacco Use Status: Never used Tobacco Advance Directives: No Advance Directives Information Provided: No Do you have a plan to hurt others: No Plan Physical Exam 2 Vital Signs: Vital Signs: Last Vital Signs Temp 97.7 F 10/31/24 02:50 Pulse 75 10/31/24 02:50 Resp 16 10/31/24 02:50 BP 138/67 10/31/24 02:50 Pulse Ox 98 10/31/24 02:50 O2 Del Method Room Air 10/31/24 02:50 BMI result Body Mass Index 31.9 Vital signs revealed an elevated blood pressure of 155/72 Exam: General: Awake, alert in no distress Head: Normocephalic, atraumatic EENT: PERRL, Lids normal, sclera normal, conjunctiva normal, nose normal , ears normal, throat without erythema or exudates Neck: Supple, no adenopathy Lung: breath sounds symmetric, no wheezing, rales or rhonchi Chest: symmetric movement, nontender Heart: regular rate and rhythm, normal S1, S2 no murmurs or rubs Abdomen: soft, mild to moderate epigastric tenderness, mild diffuse tenderness, nondistended, normal bowel sounds Back: no vertebral tenderness, no CVAT Extremities: no deformities, moves all extremities symmetrically Neuro: Awake, cranial nerves intact, moves all extremities symmetrically Psych: Pleasant, cooperative Course Course Course Narrative: Social history: The patient lives with her daughter who is her air traffic instructor. She chews tobacco daily. She does not smoke cigarettes. She denies alcohol use. She denies drug use. Medications Administered Discontinued Medications Generic Name Dose Route Start Last Admin Trade Name Johnsonq PRN Reason Stop Dose Admin Sodium Chloride 1,000 mls @ 999 mls/hr 10/30/24 23:24 10/31/24 00:58 Ns IV 10/31/24 00:24 Infused .Q1H1M STA Infusion Ketorolac Tromethamine 15 mg 10/30/24 23:24 10/30/24 23:40 Ketorolac Tromethamine 15 Mg/Ml Vial IVPUSH 10/30/24 23:25 15 mg ONCE STA Administration Ondansetron HCl 4 mg 10/30/24 23:24 10/30/24 23:40 Ondansetron Hcl 4 Mg/2 Ml Vial IVPUSH 10/30/24 23:25 4 mg ONCE ONE Administration Medical Decision Making Medical Decision Making [facility] Narrative: 84-year-old female, Irish speaking only, history of hypertension, hypothyroidism, Graves disease presents emergency department for evaluation of diarrhea, lightheadedness, dizziness after moving her bowels and was lower to the floor by her daughter. Vital signs were normal. Physical examination revealed epigastric tenderness as well as diffuse abdominal tenderness. Differential diagnosis: ?Includes but is not limited to viral syndrome, COVID- 19, influenza, RSV, C difficile colitis, electrolyte abnormalities, anemia, urinary tract infection Course: My interpretation patient's laboratory evaluation is as follows: CBC was normal. CMP revealed an elevated chloride of 109, elevated BUN of 25. LFTs were normal. Influenza and RSV were negative. COVID-19 was positive. Urinalysis was negative. Twelve EKG was unremarkable Patient's symptoms are consistent with COVID-19 infection, at this time the patient was not hypoxic and I do not think that she was a viral pneumonia. Patient was given normal saline IV x1 L, Toradol 15 mg IV and Zofran 4 mg IV. She was also given Imodium 4 mg for fever. Patient was feeling better, orthostatic vital signs were unremarkable. Patient will be discharged home and advised to take Tylenol for fever/pain and Imodium for diarrhea. Admission/Observation Consideration of admission/observation: Escalation of care including admission/observation considered (Yes) Lab Data [facility] Lab Attestation statement: I reviewed the patient's lab results. 10/30/24 22:28 10/30/24 22:28 Labs: Lab Results 10/30/24 10/30/24 10/31/24 Range/Units 22:28 23:41 01:43 WBC 10.6 (4.8-10.8) X10*3/uL RBC 4.09 L (4.20-5.50) X10*6/uL Hgb 12.0 (12.0-16.0) g/dl Hct 37.4 (37.0-47.0) % MCV 91.4 (80.0-98.0) fL MCH 29.3 (27.0-33.0) pg MCHC 32.1 (31.0-35.0) g/dl RDW 13.9 (11.0-16.0) % Plt Count 196 D (160-400) X10*3/uL MPV 10.7 (9.4-12.3) fL Immature Gran % (Auto) 0.4 (0.0-0.4) % Neut % (Auto) 82.1 H (45-73) % Lymph % (Auto) 11.3 L (20-40) % [place] % (Auto) 6.0 (2-11) % Eos % (Auto) 0.0 (0-4) % Baso % (Auto) 0.2 (0-2) % Lymph # (Auto) 1.2 (1.2-4.9) X10*3/uL [place] # (Auto) 0.6 (0.1-1.2) X10*3/uL Eos # (Auto) 0.0 (0.0-0.4) X10*3/uL Baso # (Auto) 0.0 (0.0-0.2) X10*3/uL Abs Immat Gran (auto) 0.04 H (0.00-0.03) X10*3/uL Absolute Neuts (auto) 8.7 H (2.0-8.3) x10*3/uL Absolute Nucleated RBC 0.000 (0.0-0.012) X10*3/uL Nucleated RBC % (auto) 0.0 (0.0-0.2) /100WBC Sodium 142 (135-145) mmol/L Potassium 5.0 (3.3-5.1) mmol/L Chloride 109 H (96-108) mmol/L Carbon Dioxide 24 (22-29) mmol/L Anion Gap 14 (12-20) BUN 25 H (9-16) mg/dL Creatinine 0.77 (0.5-1.4) mg/dL Estim Creat Clear Calc 57.0 Estimated GFR > 60 Random Glucose 115 (60-115) mg/dL Calcium 9.5 D (8.4-10.2) mg/dL Total Bilirubin 0.5 (0.0-1.0) mg/dL AST 27 (5-31) U/L ALT 16 (0-31) U/L Alkaline Phosphatase 58 (39-117) U/L Troponin I High Sens < 2.7 (<3.5-17.0) ng/L Total Protein 8.6 H (6.5-8.0) g/dL Albumin 4.5 (3.5-5.0) g/dL Lipase 38 (8-78) U/L Urine Color Yellow Urine Appearance Clear Urine pH 8.0 (5.0-9.0) Ur Specific [place] 1.015 (1.005-1.025) Urine Protein Negative (Neg-Trace) mg/dL Urine Glucose (UA) Negative (Negative) mg/dL Urine Ketones Negative (Negative) mg/dL Urine Blood Negative (Negative) Urine Nitrite Negative (Negative) Ur Leukocyte Esterase Negative (Negative) Influenza Type A (PCR) NEGATIVE (Negative) Influenza Type B (PCR) NEGATIVE (Negative) RSV RNA Qual (PCR) NEGATIVE (Negative) SARS-CoV-2 RNA (RT-PCR) POSITIVE A (Negative) Independent Interpretation I performed an independent interpretation of an: EKG Interpretation: My independent interpretation patient's 12 EKG done at 21:43 hours is as follows: Normal sinus rhythm rate of 65, normal IL interval, QRS duration QTC interval, no ST segment elevation, no ST segment depression, inverted T-waves V1 through V2, no PVCs or PACs. Radiology Impression Discussion of test interpretation with radiology: I have reviewed the radiologist's reading. Radiologist Impression: CT head without contrast Comparison: None Findings: No intra-axial mass, midline shift, hydrocephalus, or acute hemorrhage. Mild atrophy. Nonspecific supratentorial white matter hypodensities most suggestive of chronic small-vessel ischemic changes. Atherosclerotic vascular disease. There is no sinus or mastoid fluid. The orbits are within normal limits. There is no acute skull fracture. IMPRESSION: 1. No acute intracranial findings. This document has been electronically signed by: Florence Oneal MD on 10/30/2024 23:02:51 Dictated By: Florence Oneal MD CT cervical spine without contrast Comparison: None Findings: Cervical alignment is maintained with no subluxation. Vertebral body height is maintained. No acute fracture in the cervical spine. Craniocervical junction is intact. No significant degenerative changes. Posterior endplate osteophyte extending inferiorly at the C7-T1 level. Diffuse demineralization. Prevertebral soft tissues within limits. Atherosclerotic vascular disease. No consolidation or effusion at the lung apices. IMPRESSION: No acute findings. This document has been electronically signed by: Florence Oneal MD on 10/30/2024 22:35:39 Independent Historian Clinical information obtained from an independent historian. History obtained from or confirmed by: EMS External Record Review External record reviewed: Inpatient record Discharge Plan Discharge Clinical Impression: COVID-19 virus infection, Diarrhea, Vasovagal syncope, Acute dehydration Patient Disposition: Still a Patient Instructions: COVID-19 (Coronavirus Disease 2019) (ED) Additional Instructions: Your blood work was unremarkable. Your influenza and RSV tests were negative. Your COVID-19 test was positive. Your symptoms are consistent with a COVID infection. I believe that the diarrhea that you had made you dehydrated and this caused you to pass out. Increase your fluid intake. Take Tylenol (acetaminophen) 500 mg pills, 2 pills every 6 hours as needed for pain or fever. For diarrhea I want you to take Imodium 2 mg pills. ?Take 2 pills after the 1st loose, diarrheal stool then 1 pill after each loose, diarrheal stool up to 4 pills per day. ?This usually stops diarrhea within 24 hours. Follow-up with your doctor in 2 days. Please return to the emergency department if your symptoms get worse or if you develop any symptoms that are concerning to you. Prescriptions: No Action zkxqnlqeog-mvrachwfuoost-cgns 50-325-40 mg tablet 1 tab PO Q12H PRN (Reason: Headache) propranolol 10 mg tablet 10 mg PO BID methimazole 5 mg tablet 5 mg PO DAILY amlodipine 5 mg tablet 5 mg PO BEDTIME Qty: 30 0RF Print Language: Irish
[2024-10-30] MEDS: 0.9 % Sodium Chloride 1,000 ML 999 ML IV (23:38)
[2024-10-30] MEDS: ondansetron HCL 4 MG/2 ML VIAL IVPUSH (23:40)
[2024-10-30] MEDS: Ketorolac Tromethamine 15 MG/ML VIAL IVPUSH (23:40)
--- NOTE | 2024-10-30 23:44 | PC.NURSE ---
medicated per mar, Iv placed. pt assisted to bedside commode, C-spine collar removed by provider.
[2024-10-31 00:22] LABS: Influenza A PCR NEGATIVE (Negative); Influenza B PCR NEGATIVE (Negative); Resp Syncy Virus RNA Qual PCR NEGATIVE (Negative); SARS COV2 PCR INHOUSE POSITIVE (Negative)
[2024-10-31 00:53] VITALS: BP 139/60; PULSE 72; RESP 14; TEMP 36.9; O2SAT 96
[2024-10-31 01:45] VITALS: BP 128/62; PULSE 74
[2024-10-31 01:46] VITALS: BP 142/74; BP 158/77; PULSE 78; PULSE 82
[2024-10-31 01:49] LABS: Appearance Urine Clear; Color Urine Yellow; Glucose Urine UA Negative (Negative); Leukocyte Esterase Urine Negative (Negative); Nitrite Urine Negative (Negative); Specific Gravity - Urine 1.015 (1.005-1.025); Urine Blood Negative (Negative); Urine Ketones Negative (Negative); Urine Protein Negative (Neg-Trace)
[2024-10-31 02:50] VITALS: BP 138/67; PULSE 75; RESP 16; TEMP 36.5; O2SAT 98
--- NOTE | 2024-10-31 02:52 | PC.NURSE ---
Called daughter and updated on the plan of care, IV removed, patient awaiting daughter to go home for transport.
--- NOTE | 2024-10-31 02:55 | PC.NURSE ---
updated daughter of plan of care, Iv removed, pt awaiting daughter to transport home.
[2024-10-31] MEDS: Loperamide HCl 2 MG CAPSULE PO (03:11)
--- NOTE | 2024-10-31 03:32 | PC.NURSE ---
Reviewed discharge instructions with pt, pt verbalized understanding, pt wheeled out to car, discharged with daughter
[2024-10-31 03:33] VITALS: BP 138/67; PULSE 75; RESP 16; TEMP 36.5; O2SAT 98
== END 2024-10-31 03:34 | disposition home or self-care (01) ==
PROVIDERS: Emergency Provider Emergency Medicine Emergency Medical Services
DX: U07.1 COVID-19 (principal); R19.7 Diarrhea, unspecified; R42 Dizziness and giddiness; E86.0 Dehydration; Z91.81 History of falling
CPT/HCPCS: 0241U; 36415; 70450; 72125; 80053; 81003; 83690; 84484; 85025; 93005; 96361; 96374; 96375; 99284; 99285; J1885; J2405

== ENCOUNTER → 2024-10-30 21:43 | Outpatient (BNV) | payer MEDICARE, MEDICAID, SELFPAY | PROVIDERS: Emergency Provider Emergency Medicine Emergency Medical Services; Visit Provider Internal Medicine | DX: R55 Syncope and collapse (principal) | CPT/HCPCS: 93010 ==

== ENCOUNTER → 2024-10-30 21:50 | Outpatient (BNV) | payer MEDICARE, MEDICAID, SELFPAY | PROVIDERS: Visit Provider Specialist | DX: R55 Syncope and collapse (principal) | CPT/HCPCS: 70450; 72125 ==

== ENCOUNTER 2025-04-22 22:23 | Emergency (ER) | payer MEDICARE, MEDICAID, SELFPAY ==
--- NOTE | 2025-04-22 | ECG_ITS ---
Test Reason : DIZZINESS Blood Pressure : */* mmHG Vent. Rate : 64 BPM Atrial Rate : 64 BPM P-R Int : 192 ms QRS Dur : 84 ms QT Int : 402 ms P-R-T Axes : 33 31 70 degrees QTcB Int : 414 ms Normal sinus rhythm Normal ECG When compared with ECG of 30-Oct-2024 21:43, No significant change was found Referred By: Generic ED Physician Electronically Signed By: Hal Whitney
--- NOTE | ~2025-04-22 | CT_ITS ---
CLINICAL HISTORY: L hippain posteriorly no trauma CT pelvis without contrast Comparison: None provided Findings: Pelvic contents unremarkable. Normal appendix. Osteopenia. No acute fracture. No large joint effusion. Mild bilateral hip osteoarthritis. IMPRESSION: 1. No acute findings. This document has been electronically signed by: Elisabeth Martin MD on 04/23/2025 01:20:50
--- NOTE | ~2025-04-22 | CT_ITS ---
CLINICAL HISTORY: L lumbosacral pain atraumatic CT lumbar spine without contrast Comparison: None provided Findings: Osteopenia. Normal vertebral body alignment. No acute fractures or dislocations. Disc bulges and ligamentum flavum hypertrophy at L3-L4 and L4-L5 causing moderate spinal canal stenosis. Aortic atherosclerosis. No aneurysm. No acute findings in the visualized abdomen. IMPRESSION: No acute findings. Disc bulges and ligamentum flavum hypertrophy at L3-L4 and L4-L5 causing moderate spinal canal stenosis. This document has been electronically signed by: Elisabeth Martin MD on 04/23/2025 01:18:13
[2025-04-22 22:30] VITALS: BP 132/76; BP 136/51; PULSE 65; PULSE 72; RESP 20; TEMP 36.9; O2SAT 96; O2SAT 97; BMI 23.1
--- NOTE | 2025-04-22 23:22 | ED_ITS ---
HPI - General Adult General Chief complaint: General Medical Stated complaint: L HIP PAIN, DIZZINESS Time Seen by Provider: 04/22/25 23:19 History of Present Illness ED Provider: inez HPI narrative: 85 F p/w difficulty ambulating atraumatic left hip pain dizzy. Through voice JANNETTE Albanian translator interpreter the patient tells me that she has atraumatic left posterior hip pain without fall or injury. She also felt generally weak. She says the hip pain started worsening today but began about 3 days ago after diarrhea. She does not feel swelling or pain anywhere else in the left lower extremity. She feels a little bit of left low back pain. No difficulty urinating or sensory changes. Also felt lightheaded near syncopal episode while walking earlier generally feels weak no cough fever or chills chest pain Related Data Home Medications ?Medication ?Instructions ?Recorded ?Confirmed vnbhhufnig-numgjokaysgis-mcgiisky 1 tab PO Q12H PRN He adache 07/23/23 07/23/23 50 mg-325 mg-40 mg tablet methimazole 5 mg tablet 5 mg PO DAILY 07/23/23 Held on 07/23/23. Instructions: Resume on 08/07/23. clarify if supposed to be taking with pcp propranolol 10 mg tablet 10 mg PO BID 07/23/23 Held on 07/23/23. Instructions: Resume on 08/07/23. clarify if supposed to be taking with pcp Previous Rx's ?Medication ?Instructions ?Recorded amlodipine 5 mg tablet 5 mg PO BEDTIME #30 tabs 09/02 Allergies Allergy/AdvReac Type Severity Reaction Status Date / Time No Known Allergies Allergy Verified 04/22/25 22:32 [facility] Past Medical History Medical History Essential hypertension Graves disease Social History Social History Patient Tobacco Use Status: Never used Tobacco Physical Exam ED Exam Exam: EXAM: Gen: Alert, awake, thin appears stated age. Uncomfortable appearing leaning to the right side in the bed Head: Atraumatic Eyes: Anicteric, Normal conjunctiva. ENT: Moist mucosa, no pallor. ? Neck: Supple. Skin: ?No observable rash or bruising on exposed or examined skin Respiratory: Breathing comfortably, No distress.Clear to auscultation bilaterally, symmetric chest expansion, No wheeze, rales, ronchi. Cardiovascular: Regular rate and rhythm. No murmurs or rub. Well perfused periphery, warm extremities. No edema. ? Abdominal: No focal tenderness. Soft, no objective distension. No palpable masses or obvious organomegaly. ?No guarding, no rebound tenderness or other peritoneal findings. : No flank tenderness. Neuro: Alert. Gross movement of all extremities intact. ? Psych: Calm. Cooperative. MSK: No grossly visible deformity. Significant tenderness without bony deformity or instability of the pelvis on the posterior left hip region. No hematoma bruising or other abnormalities. She is able to passively range the left hip fully as well as the left knee and ankle there was no swelling no bruising. Pelvis is stable with rocking. Mild left lumbosacral region discomfort no midline spinal tenderness Vital signs: See flowsheet Vital Signs: Vital Signs - 24 hr 04/22/25 22:30 04/23/25 00:57 04/23/25 04:13 Temperature 98.4 F 98.9 F Pulse Rate 65 67 62 Respiratory Rate 20 14 12 Blood Pressure 136/51 L 122/62 Pulse Oximetry 97 95 Oxygen Delivery Method Room Air Room Air 04/23/25 06:12 Temperature 98.6 F Pulse Rate 64 Respiratory Rate 19 Blood Pressure 147/60 H Pulse Oximetry 96 Oxygen Delivery Method Room Air BMI result Body Mass Index 23.1 Course Reevaluation(s) Reevaluation #1: PT case management physician observation started at this time: 01:39 Avinash Gomez MD Time: : Reevaluation #2: Time: : Date: 04/23/25 Provider: Dai Orozco PA-C Patient is in position observation for case management needs. Disposition to be determined by ability to schedule [facility] services for PT at home. No events since patient was placed in physician observation just under 8 hours ago. VSS. Will continue to monitor. Physician observation ended at 11 am. Patient has been cleared for discharge by the CARE team. Will follow up as an outpatient with [facility] for physical therapy. She will discharged to home with daughter. Medications Administered Discontinued Medications Generic Name Dose Route Start Last Admin Trade Name Freq PRN Reason Stop Dose Admin Diazepam 2 mg 04/23/25 01:34 04/23/25 02:00 Diazepam 2 Mg Tablet PO 04/23/25 01:35 2 mg ONCE ONE Administration Ketorolac Tromethamine 10 mg 04/23/25 01:34 04/23/25 02:00 Ketorolac Tromethamine 15 Mg/Ml Vial IVPUSH 04/23/25 01:35 10 mg ONCE ONE Administration Lidocaine 1 patch 04/23/25 01:34 04/23/25 02:00 Lidocaine 4 % Patch Adh..Patch TRANSDERMA 04/23/25 01:35 1 patch ONCE ONE Administration Protocol Medical Decision Making Medical Decision Making MDM Narrative: Medical Decision Makin-year-old female with essential hypertension with vague near syncopal event and fatigue malaise but mainly here for left posterior atraumatic hip pain. No fever or chills. Diarrhea recently unclear with relevance to the case but she attributes the pain starting after that time. Tender in the left hip we will get a CT of the limbus equal and hip/pelvis. Labs including troponin, ECG CT does not reveal any acute emergent actionable finding she does have some disc bulging with canal stenosis but her clinical presentation without weakness incontinence or other red flag symptoms is not suggestive of cauda equina syndrome. Particularly given the patient's pain is much more focused in the left posterior hip area without explanation on CT patient may physical therapy evaluation to assess her ambulatory status and multimodal analgesia regimen initiated Preliminary Favored Differential Diagnosis: Hip fracture muscular strain, gluteal spasm, lumbar radiculopathy as well as vasovagal, dehydration, cardiogenic syncope or other syncope an elderly female among additional considered etiologies Testing Interpreted Independently: Sinus rhythm rate 64 QTC 414 no acute ischemic changes normal intervals and axis Radiology or Lab testing Results Reviewed: Non actionable lab findings normal electrolytes Consults: Not Applicable Independent Historians/External Chart Reviews: Daughter. We used translator interpreter Albanian through the via [employer] see E JANNETTE Social Determinants of Health Impacting MDM/Planning: Language barrier requiring translator interpreter voice Albanian translator interpreter through JANNETTE daughter at the bedside Lab Data 04/22/25 23:32 04/22/25 23:32 Labs: Lab Results 04/22/25 04/23/25 Range/Units 23:32 09:20 WBC 8.1 (4.8-10.8) X10*3/uL RBC 3.59 L (4.20-5.50) X10*6/uL Hgb 10.7 L (12.0-16.0) g/dl Hct 33.0 L (37.0-47.0) % MCV 91.9 (80.0-98.0) fL MCH 29.8 (27.0-33.0) pg MCHC 32.4 (31.0-35.0) g/dl RDW 12.4 (11.0-16.0) % Plt Count 178 (160-400) X10*3/uL MPV 10.9 (9.4-12.3) fL Immature Gran % (Auto) 0.2 (0.0-0.4) % Neut % (Auto) 77.6 H (45-73) % Lymph % (Auto) 12.8 L (20-40) % [place] % (Auto) 9.2 (2-11) % Eos % (Auto) 0.1 (0-4) % Baso % (Auto) 0.1 (0-2) % Lymph # (Auto) 1.0 L (1.2-4.9) X10*3/uL [place] # (Auto) 0.7 (0.1-1.2) X10*3/uL Eos # (Auto) 0.0 (0.0-0.4) X10*3/uL Baso # (Auto) 0.0 (0.0-0.2) X10*3/uL Abs Immat Gran (auto) 0.02 (0.00-0.03) X10*3/uL Absolute Neuts (auto) 6.3 (2.0-8.3) x10*3/uL Absolute Nucleated RBC 0.000 (0.0-0.012) X10*3/uL Nucleated RBC % (auto) 0.0 (0.0-0.2) /100WBC Sodium 145 (135-145) mmol/L Potassium 3.9 D (3.3-5.1) mmol/L Chloride 105 (96-108) mmol/L Carbon Dioxide 32 H (22-29) mmol/L Anion Gap 12 (12-20) BUN 19 H (9-16) mg/dL Creatinine 0.80 (0.5-1.4) mg/dL Estim Creat Clear Calc 42.1 Estimated GFR > 60 Random Glucose 125 H (60-115) mg/dL Calcium 9.2 (8.4-10.2) mg/dL Magnesium 1.6 (1.6-2.6) mg/dL Total Bilirubin 0.8 (0.0-1.0) mg/dL AST 26 (5-31) U/L ALT 13 (0-31) U/L Alkaline Phosphatase 45 (39-117) U/L Troponin I High Sens 3.3 (<3.5-17.0) ng/L Total Protein 7.2 (6.5-8.0) g/dL Albumin 4.1 (3.5-5.0) g/dL Influenza Type A (PCR) NEGATIVE (Negative) Influenza Type B (PCR) NEGATIVE (Negative) RSV RNA Qual (PCR) NEGATIVE (Negative) SARS-CoV-2 RNA (RT-PCR) NEGATIVE (Negative) Discharge Plan Discharge Clinical Impression: Acute hip pain Patient Disposition: Home, Self-Care Additional Instructions: You were seen in the emergency department for left-sided hip pain. You had a evaluation by physical therapy who determined disposition to home with visiting services for physical therapy would be appropriate for you. You do not meet inpatient level criteria. You had imaging done that showed no fractures of your hips, pelvis and lumbar spine. Please continue to take your prescribed medications for your other health conditions. For any new or concerning symptoms please return to the emergency department. Prescriptions: No Action rarjxhnohy-wdgygbuserhzf-zggo 50-325-40 mg tablet 1 tab PO Q12H PRN (Reason: Headache) propranolol 10 mg tablet 10 mg PO BID methimazole 5 mg tablet 5 mg PO DAILY amlodipine 5 mg tablet 5 mg PO BEDTIME Qty: 30 0RF Referrals: [facility] [Outside] Referral Note: Agency will call to arrange visit. Interventions: ED Discharge Assessment Last Done: 04/23/25 11:33 Discharge Date/Time: 04/23/25 11:33 Print Language: Albanian
[2025-04-22 23:36] LABS: MANUAL DIFF FLAG NO
[2025-04-22 23:37] LABS: Hematocrit 33.0 % (37.0-47.0); Hemoglobin 10.7 g/dl (12.0-16.0); Imm Gran Abs Auto 0.02 X10*3/uL (0.00-0.03); Imm Gran Pct Auto 0.2 % (0.0-0.4); Lymphocytes Absolute Auto 1.0 X10*3/uL (1.2-4.9); Mean Corpuscular HGB Conc 32.4 g/dl (31.0-35.0); Mean Corpuscular Hemoglobin 29.8 pg (27.0-33.0); Mean Corpuscular Volume 91.9 fL (80.0-98.0); NRBC Abs Auto 0.000 X10*3/uL (0.0-0.012); NRBC Pct Auto 0.0 /100WBC (0.0-0.2); Platelet Count 178 X10*3/uL (160-400); Red Blood Count 3.59 X10*6/uL (4.20-5.50); White Blood Count 8.1 X10*3/uL (4.8-10.8)
[2025-04-22 23:52] LABS: Alanine Aminotransferase 13 U/L (0-31); Albumin Level 4.1 g/dL (3.5-5.0); Alkaline Phosphatase 45 U/L (39-117); Anion Gap 12 (12-20); Aspartate Amino Transferase 26 U/L (5-31); Blood Urea Nitrogen 19 mg/dL (9-16); Calcium 9.2 mg/dL (8.4-10.2); Carbon Dioxide 32 mmol/L (22-29); Chloride 105 mmol/L (96-108); Creatinine Clr Calc Pharmacy 42.1; Estimated Glomerular Filt Rate > 60; Magnesium 1.6 mg/dL (1.6-2.6); Potassium 3.9 mmol/L (3.3-5.1); Sodium 145 mmol/L (135-145); Total Protein 7.2 g/dL (6.5-8.0)
[2025-04-22 23:57] LABS: Troponin-I High Sensitivity 3.3 ng/L (<3.5-17.0)
[2025-04-23 00:57] VITALS: BP 122/62; PULSE 67; RESP 14; TEMP 37.2; O2SAT 95
--- NOTE | 2025-04-23 01:19 | PC.NURSE ---
pt resting in bed after going to CT Scan.
[2025-04-23] MEDS: Lidocaine 4 % Patch ADH..PATCH 1 PATCH TRANSDERMA (02:00)
--- NOTE | 2025-04-23 02:15 | PC.NURSE ---
pt medicated per mar.
[2025-04-23 04:13] VITALS: PULSE 62; RESP 12
--- NOTE | 2025-04-23 05:09 | PC.NURSE ---
pt sleeping no sign of distress. pure wick in place.
[2025-04-23 06:12] VITALS: BP 147/60; PULSE 64; RESP 19; TEMP 37; O2SAT 96
[2025-04-23 09:16] VITALS: PULSE 79
--- NOTE | 2025-04-23 09:28 | MHC.CM.ED ---
Addendum entered by Julia Ladd 04/23/25 10:39: Mike is able to accept patient. Patient and daughter accept. Original Note: Received case management consult overnight. Patient came to the ER due to hip pain. Work up essentially negative. Physical therapy eval completed. Home with services is recommended. Patient is primarily Norwegian speaking. Attempted to meet with patient. Patient currently sleeping. Spoke with patient's daughter, Alonzo, via telephone at [phone]. Alonzo is able to understand and speak Mongolian. Patient lives with Alonzo. Typically doesn't use any assistive devices in the home. Just ambulates slowly. Will occasionally use a cane outside. Patient has a couple of steps that she is able to maneuver. PCP verified as Alban Byrne. Patient has been to [facility] a very long time ago. Patient would not be interested in rehab and would prefer to return home with VNA. Jordynobie will be on-site around 11am to transport patient home. Referral for VNA will be broadcasted at this time d/t language barrier. Copy of HCP requested from [facility]. Continue to monitor for d/c needs.
[2025-04-23 10:29] LABS: Resp Syncy Virus RNA Qual PCR NEGATIVE (Negative); SARS COV2 PCR INHOUSE NEGATIVE (Negative)
[2025-04-23 11:32] VITALS: BP 136/72; PULSE 60; RESP 18; TEMP 37; O2SAT 96
[2025-04-23 11:33] VITALS: BP 136/72; PULSE 60; RESP 18; TEMP 37; O2SAT 96
== END 2025-04-23 11:33 | disposition home or self-care (01) ==
PROVIDERS: Emergency Provider Emergency Medicine
DX: M25.552 Pain in left hip (principal); R53.1 Weakness; I10 Essential (primary) hypertension; Z03.818 Encounter for observation for suspected exposure to other biological agents ruled out
CPT/HCPCS: 36415; 72131; 72192; 80053; 83735; 84484; 85025; 87637; 93005; 96372; 97161; 99285; J1885

== ENCOUNTER → 2025-04-22 22:42 | Outpatient (BNV) | payer MEDICARE, MEDICAID, SELFPAY | PROVIDERS: Emergency Provider Emergency Medicine; Visit Provider Internal Medicine Cardiovascular Disease | DX: R42 Dizziness and giddiness (principal) | CPT/HCPCS: 93010 ==

== ENCOUNTER → 2025-04-22 23:50 | Outpatient (BNV) | payer MEDICARE, MEDICAID, SELFPAY | PROVIDERS: Emergency Provider Emergency Medicine; Visit Provider Radiology Diagnostic Radiology | DX: M16.0 Bilateral primary osteoarthritis of hip (principal); M48.061 Spinal stenosis, lumbar region without neurogenic claudication | CPT/HCPCS: 72131; 72192 ==

== ENCOUNTER 2025-04-30 14:09 | Emergency (ER) | payer MEDICARE, MEDICAID, SELFPAY ==
--- OUTSIDE RECORDS SUMMARY | 2025-04-25 07:00 | XMS_ITS ---
Author Organization [facility] [address] Address [address] [place] [address] Care Team Providers Care Housing Grant Analyst Name Role Phone EWA POWERS Primary Care Provider [phone] NICKOLAS ADKINS [phone] Encounters Encounter Location Date Provider Diagnosis [facility] [address] [place] [address] 04/25/2025 NICKOLAS ADKINS Plan Of Treatment Next Appt Details Provider Name:NICKOLAS ADKINS , 05/21/2025 01:00:00 PM, [address], [address], [place], [address], Progress Notes * Carlos BRUCEOB:1940 ( 85 yo F)Acc No.[id number]:04/25/2025 Progress Notes Patient: Alejandra AZUL Provider: Corinne ADKINS :1940 A ge:85 Y S ex:Female Date:04/25/2025 Address:[address] [id number] Pcp:EWA POWERS Subjective: * Chief Complaints: * * Medical History: Objective: * Vitals: Assessment: Plan: * Treatment: * Images: Billing Information: * Visit Code: * Procedure Codes: Care Plan Details* * Electronic signature of DREA ADKINS PA-C, [id number] on 04/30/2025 at 03:52 PM EDT Sign off status: Pending * Provider: Corinne ADKINS Date: 0 04/25/2025 Generated for Erika barrett/Demetra/Cindyitting on: 0 04/30/2025 03:52 PM EDT
[2025-04-30 14:22] VITALS: BP 145/76; PULSE 66; O2SAT 96
[2025-04-30 14:24] VITALS: BP 159/69; PULSE 63; RESP 20; TEMP 36.9; O2SAT 96; BMI 28.7
--- NOTE | 2025-04-30 14:44 | ECG_ITS ---
Test Reason : DIZZINESS Blood Pressure : */* mmHG Vent. Rate : 61 BPM Atrial Rate : 61 BPM P-R Int : 170 ms QRS Dur : 80 ms QT Int : 398 ms P-R-T Axes : 38 14 81 degrees QTcB Int : 400 ms Normal sinus rhythm Nonspecific T wave abnormality Abnormal ECG When compared with ECG of 22-Apr-2025 22:42, No significant change was found Referred By: Misty Vaughan Electronically Signed By: KODAK TIAN MD
--- NOTE | 2025-04-30 14:48 | ED.GENADULT ---
HPI - General Adult General Chief complaint: General Medical Stated complaint: DIZZY,ROMO,VOMTING PER EMS Time Seen by Provider: 04/30/25 14:48 Source: patient, family and maintenance painter Mode of arrival: ambulatory Limitations: language barrier History of Present Illness ED Provider: HPI narrative: 85-year-old woman presenting with report of dizziness which she stated is a spinning sensation with nausea slight headache, she was just recently seen here for same as well as hip pain. No reports of chest pain or shortness of breath fevers chills or dysuria. Kittitian maintenance painter was used. Her daughter is at bedside. Related Data Home Medications ?Medication ?Instructions ?Recorded ?Confirmed [id number]-kijluzpyalypc-[id number] 1 tab PO Q12H PRN Headache 07/23/23 07/23/23 50 mg-325 mg-40 mg tablet methimazole 5 mg tablet 5 mg PO DAILY 07/23/23 Held on 07/23/23. Instructions: Resume on 08/07/23. clarify if supposed to be taking with pcp propranolol 10 mg tablet 10 mg PO BID 07/23/23 07/23/23 Held on 07/23/23. Instructions: Resume on 08/07/23. clarify if supposed to be taking with pcp Previous Rx's ?Medication ?Instructions ?Recorded amlodipine 5 mg tablet 5 mg PO BEDTIME #30 tabs 07/23/23 meclizine 12.5 mg tablet 12.5 mg PO TID PRN vertigo 5 days 04/30/25 #20 tabs Allergies Allergy/AdvReac Type Severity Reaction Status Date / Time No Known Allergies Allergy Verified 04/30/25 14:25 Review of Systems Constitutional: Constitutional: Reports as per HPI [facility] Past Medical History Medical History Essential hypertension Graves disease Social History Social History Patient Tobacco Use Status: Never used Tobacco Advance Directives: No Advance Directives Information Provided: Yes Physical Exam ED Vital Signs: Vital Signs - 24 hr 04/30/25 14:24 04/30/25 16:14 Temperature 98.4 F 98.3 F Pulse Rate 63 Respiratory Rate 20 14 Blood Pressure 159/69 H Pulse Oximetry 96 96 Oxygen Delivery Method Room Air Room Air BMI result Body Mass Index 28.7 Const Other: Gen: ?Overall well-appearing patient HEENT: PERRLA, EOMI, MMM, Neck: Supple, no LAD CV: RRR, no obvious murmurs appreciated Resp: ?No wheezing rales rhonchi no stridor moving air well Abd: ?Bowel sounds are present, no tenderness no rebound no rigidity MSK: FROM, strength 5/5 all extremities Skin: Warm, dry, intact, Neuro: ?Alert and oriented x3, moving upper and lower extremities symmetrically, no obvious facial asymmetry noted, no dysmetria upper or lower extremities, reported symptoms with horizontal movement and slight nystagmus to the right Medications Administered Discontinued Medications Generic Name Dose Route Start Last Admin Trade Name Freq PRN Reason Stop Dose Admin Sodium Chloride 1,000 mls @ 999 mls/hr 04/30/25 15:00 04/30/25 16:01 Ns IV 04/30/25 16:00 999 mls/hr .Q1H1M JANELLE Administration Meclizine HCl 12.5 mg 04/30/25 14:55 04/30/25 15:59 Meclizine Hcl 12.5 Mg Tablet PO 04/30/25 14:56 12.5 mg ONCE ONE Administration Ondansetron HCl 4 mg 04/30/25 14:55 04/30/25 16:00 Ondansetron Hcl 4 Mg/2 Ml Vial IVPUSH 04/30/25 14:56 4 mg ONCE ONE Administration Scopolamine 1.5 mg 04/30/25 14:55 04/30/25 16:01 Scopolamine 1.5 Mg Patch.Td.3 EAR-BEHIND 04/30/25 14:56 1.5 mg ONCE ONE Administration Medical Decision Making Medical Decision Making [facility] Narrative: Consideration for workup as below, she has been seen here for dizziness in the past, she had some reduction in her symptoms look into the right with a slight nonsustained nystagmus without vertical or rotary components to suspect cerebellar stroke did not feel further imaging such as CT brain is indicated, ECG without underlying dysrhythmia or AV primitivo blocks, disposition to be determined, information was obtained with the help of the component maintenance painter and her daughter at bedside Differential Diagnosis Differential Diagnoses: The differential diagnosis associated with the presentation includes (BPPV, cerebellar stroke, dehydration, UTI, ACS, dehydration) Admission/Observation Consideration of admission/observation: Escalation of care including admission/observation considered 2022 Emergency Medicine Coding Guide from [employer] on 04/30/2025 All calculations should be rechecked by clinician prior to use RESULT SUMMARY: 5 Estimated Level of Service Problems: Moderate (4) Risk: High (5) Data: Extensive (5) NARRATIVE MDM: This patient's problem complexity is Moderate as patient: has a new undiagnosed problem with uncertain prognosis but that could be serious. This patient's risk is High due to: overall presentation requiring evaluation for a potentially High-risk process. This patient's data complexity is Extensive due to: -multiple tests ordered -independent historian used to support history -independent interpretation of imaging or EKG INPUTS: Number and Complexity ?> 5 = 4: undiagnosed new problem, uncertain outcome (e) Risk level ?> 4 = High Tests ordered ?> 2 = 2 Tests results reviewed (excluding labs) ?> 1 = 1 Prior external notes reviewed ?> 0 = 0 Assessment requiring and independent historian ?> 1 = Yes Independent interpretation of tests ?> 1 = Yes Discussed management/test interpretation w/external professional ?> 0 = No Lab Data MDM Lab Attestation statement: I reviewed the patient's lab results. 04/30/25 15:03 04/30/25 16:33 Labs: Lab Results 04/30/25 04/30/25 04/30/25 Range/Units 15:03 15:55 16:33 WBC 3.9 L (4.8-10.8) X10*3/uL RBC 4.01 L (4.20-5.50) X10*6/uL Hgb 11.8 L (12.0-16.0) g/dl Hct 36.4 L (37.0-47.0) % MCV 90.8 (80.0-98.0) fL MCH 29.4 (27.0-33.0) pg MCHC 32.4 (31.0-35.0) g/dl RDW 12.5 (11.0-16.0) % Plt Count 220 (160-400) X10*3/uL MPV 11.1 (9.4-12.3) fL Immature Gran % (Auto) 0.0 (0.0-0.4) % Neut % (Auto) 49.6 (45-73) % Lymph % (Auto) 40.8 H (20-40) % [place] % (Auto) 8.8 (2-11) % Eos % (Auto) 0.5 (0-4) % Baso % (Auto) 0.3 (0-2) % Lymph # (Auto) 1.6 (1.2-4.9) X10*3/uL [place] # (Auto) 0.3 (0.1-1.2) X10*3/uL Eos # (Auto) 0.0 (0.0-0.4) X10*3/uL Baso # (Auto) 0.0 (0.0-0.2) X10*3/uL Abs Immat Gran (auto) 0.00 (0.00-0.03) X10*3/uL Absolute Neuts (auto) 1.9 L (2.0-8.3) x10*3/uL Absolute Nucleated RBC 0.000 (0.0-0.012) X10*3/uL Nucleated RBC % (auto) 0.0 (0.0-0.2) /100WBC PT 10.7 L (10.9-12.4) SEC INR 0.9 (0.9-1.1) Sodium 143 (135-145) mmol/L Potassium 3.6 (3.3-5.1) mmol/L Chloride 105 (96-108) mmol/L Carbon Dioxide 28 (22-29) mmol/L Anion Gap 14 (12-20) BUN 13 (9-16) mg/dL Creatinine 0.67 (0.5-1.4) mg/dL Estim Creat Clear Calc 54.1 Estimated GFR > 60 Random Glucose 80 (60-115) mg/dL Calcium 8.9 (8.4-10.2) mg/dL Magnesium 1.6 (1.6-2.6) mg/dL Total Bilirubin 0.4 (0.0-1.0) mg/dL AST 37 H (5-31) U/L ALT 21 (0-31) U/L Alkaline Phosphatase 48 (39-117) U/L Troponin I High Sens 2.8 (<3.5-17.0) ng/L Total Protein 7.2 (6.5-8.0) g/dL Albumin 4.2 (3.5-5.0) g/dL Influenza Type A (PCR) NEGATIVE (Negative) Influenza Type B (PCR) NEGATIVE (Negative) RSV RNA Qual (PCR) NEGATIVE (Negative) SARS-CoV-2 RNA (RT-PCR) NEGATIVE (Negative) Independent Interpretation I performed an independent interpretation of an: EKG (61 beats per minute otherwise normal ECG without dysrhythmia, AV primitivo blocks or ST-T changes to suspect underlying ACS, my independent interpretation) Discharge Plan Discharge Clinical Impression: Vertigo Patient Disposition: Home, Self-Care Instructions: Dizziness (ED) Additional Instructions: The workup today has been reassuring EKG, blood work, please follow up with the her primary care provider for re-evaluation, I am giving her medication called meclizine she can use as needed for dizziness and I believe she has vertigo based on her physical examination Prescriptions: New meclizine 12.5 mg tablet 12.5 mg PO TID PRN (Reason: vertigo) 5 Days Qty: 20 0RF No Action ayqdrficsr-zpbexbuiplzub-qaeo 50-325-40 mg tablet 1 tab PO Q12H PRN (Reason: Headache) propranolol 10 mg tablet 10 mg PO BID methimazole 5 mg tablet 5 mg PO DAILY amlodipine 5 mg tablet 5 mg PO BEDTIME Qty: 30 0RF Referrals: Alban Byrne MD [Primary Care Provider, Primary Care] - 10 days Print Language: Kittitian
[2025-04-30 15:11] LABS: MANUAL DIFF FLAG NO
[2025-04-30 15:13] LABS: Hematocrit 36.4 % (37.0-47.0); Hemoglobin 11.8 g/dl (12.0-16.0); Imm Gran Abs Auto 0.00 X10*3/uL (0.00-0.03); Imm Gran Pct Auto 0.0 % (0.0-0.4); Lymphocytes Absolute Auto 1.6 X10*3/uL (1.2-4.9); Mean Corpuscular HGB Conc 32.4 g/dl (31.0-35.0); Mean Corpuscular Hemoglobin 29.4 pg (27.0-33.0); Mean Corpuscular Volume 90.8 fL (80.0-98.0); NRBC Abs Auto 0.000 X10*3/uL (0.0-0.012); NRBC Pct Auto 0.0 /100WBC (0.0-0.2); Platelet Count 220 X10*3/uL (160-400); Red Blood Count 4.01 X10*6/uL (4.20-5.50); White Blood Count 3.9 X10*3/uL (4.8-10.8)
[2025-04-30 15:18] LABS: INTERNATIONAL NORM RATIO 0.9 (0.9-1.1); Prothrombin Time 10.7 SEC (10.9-12.4)
[2025-04-30 15:52] LABS: Resp Syncy Virus RNA Qual PCR NEGATIVE (Negative); SARS COV2 PCR INHOUSE NEGATIVE (Negative)
[2025-04-30 16:14] VITALS: RESP 14; TEMP 36.8; O2SAT 96
[2025-04-30 16:23] LABS: Troponin-I High Sensitivity 2.8 ng/L (<3.5-17.0)
[2025-04-30 16:54] LABS: Alanine Aminotransferase 21 U/L (0-31); Albumin Level 4.2 g/dL (3.5-5.0); Alkaline Phosphatase 48 U/L (39-117); Anion Gap 14 (12-20); Aspartate Amino Transferase 37 U/L (5-31); Blood Urea Nitrogen 13 mg/dL (9-16); Calcium 8.9 mg/dL (8.4-10.2); Carbon Dioxide 28 mmol/L (22-29); Chloride 105 mmol/L (96-108); Creatinine Clr Calc Pharmacy 54.1; Estimated Glomerular Filt Rate > 60; Magnesium 1.6 mg/dL (1.6-2.6); Potassium 3.6 mmol/L (3.3-5.1); Sodium 143 mmol/L (135-145); Total Protein 7.2 g/dL (6.5-8.0)
[2025-04-30 17:19] LABS: Appearance Urine Clear; Glucose Urine UA Negative (Negative); PH 7.5 (5.0-9.0); Specific Gravity - Urine 1.010 (1.005-1.025); UMIC TRIGGER UACC YES
[2025-04-30 18:44] VITALS: BP 156/65; PULSE 66; RESP 15; TEMP 36.6; O2SAT 96
[2025-04-30 19:17] VITALS: BP 156/65; PULSE 66; RESP 15; TEMP 36.6; O2SAT 96
== END 2025-04-30 19:36 | disposition home or self-care (01) ==
PROVIDERS: Physician Assistant Medical; Emergency Provider Emergency Medicine; PCP Internal Medicine
DX: R42 Dizziness and giddiness (principal); R51.9 Headache, unspecified; R11.2 Nausea with vomiting, unspecified; R94.31 Abnormal electrocardiogram [ECG] [EKG]; Z03.818 Encounter for observation for suspected exposure to other biological agents ruled out; Z79.899 Other long term (current) drug therapy; Z51.81 Encounter for therapeutic drug level monitoring
CPT/HCPCS: 80053; 81001; 83735; 84484; 85025; 85610; 87637; 93005; 96361; 96374; 99284; J2405

== ENCOUNTER → 2025-04-30 14:44 | Outpatient (BNV) | payer MEDICARE, MEDICAID, SELFPAY | PROVIDERS: Emergency Provider Emergency Medicine; PCP Internal Medicine; Visit Provider Internal Medicine Cardiovascular Disease | DX: R94.31 Abnormal electrocardiogram [ECG] [EKG] (principal); R42 Dizziness and giddiness | CPT/HCPCS: 93010 ==